=== PATIENT | male | born 1945 | race Caucasian/White ===

== ENCOUNTER 2017-05-28 13:46 | Inpatient (IN) | payer MEDICARE, MEDICAID ==
[2017-05-28] MEDS ORDERED: CEFTRIAXONE RTU 1 GM/D5W 50 ML IV ONE (14:21)
--- NOTE | 2017-05-28 15:07 | ER Document Report ---
ED General - General Chief Complaint: Abscess Stated Complaint: ALTERED MENTAL STATUS Time Seen by Provider: 05/28/17 14:20 Mode of Arrival: Medic Information source: Transfer Record, Emergency Med Personnel, Outside Facility Records Cannot obtain history due to: Dementia Notes: Patient is a 71-year-old male presenting from the [facility] secondary to some increased baseline mental status changes as well as a wound to his right lower buttocks region. History was provided by transfer records as well as EMS report. Supposedly there is been no fevers, vomiting, or diarrhea. Skylar, nurse at staff, states pt looked pale and clammy. States confused at baseline, but normally feeds himself. States slumped over and couldn't hold himself up. BP was "low in the 80's". Wound on buttocks noticed two days ago. No fevers or vomiting. Normally laughs and answers in two to three word sentences. TRAVEL OUTSIDE OF THE [place] IN LAST 30 DAYS: No - HPI Onset: This morning Onset/Duration: Gradual Quality of pain: No pain Severity: Moderate Associated symptoms: Other - See above Exacerbated by: Denies Relieved by: Denies Similar symptoms previously: No Recently seen / treated by doctor: Yes - Related Data Allergies/Adverse Reactions: No Known Allergies Allergy (Unverified 04/21/12 04:40) Past Medical History - Social History Smoking Status: Never Smoker Cigarette use (# per day): No Chew tobacco use (# tins/day): No Smoking Education Provided: No Frequency of alcohol use: None Drug Abuse: None Family History: Reviewed & Not Pertinent Patient has suicidal ideation: No Patient has homicidal ideation: No - Past Medical History Cardiac Medical History: Reports: Hx Hypercholesterolemia, Hx Hypertension Pulmonary Medical History: Denies: Hx Tuberculosis Neurological Medical History: Reports: Hx Cerebrovascular Accident Renal/ Medical History: Denies: Hx Peritoneal Dialysis GI Medical History: Reports: Hx Ulcer Psychiatric Medical History: Reports: Hx Dementia Surgical Hx: Negative Past Surgical History: Denies: Hx Pacemaker - Immunizations Hx Diphtheria, Pertussis, Tetanus Vaccination: Yes Review of Systems - Review of Systems -: Yes ROS unobtainable due to patient's medical condition Physical Exam - Vital signs Vitals: Temp Pulse Resp BP Pulse Ox 99.5 F 94 20 104/44 L 100 05/28/17 14:11 05/28/17 14:11 05/28/17 14:11 05/28/17 14:11 05/28/17 14:11 Notes: Reviewed vital signs and nursing note as charted by RN. CONSTITUTIONAL: Eyes open with the patient does not respond to questions or commands HEAD: Normocephalic; atraumatic EYES: PERRL ENT: Moist mucous membranes; pharynx without lesions noted NECK: Supple without meningismus; non-tender CARD: Regular rate and rhythm; no murmurs RESP: Normal chest excursion without splinting or tachypnea; breath sounds clear and equal bilaterally ABD/GI: Normal bowel sounds; non-distended; soft, non-tender GI/: Patient does have a 6 x 4 cm circular ulcerated lesion with some surrounding cellulitis to the right posterior buttocks. It does not extend into the scrotum or perineal or perirectal region BACK: The back appears normal and is non-tender to palpation EXT: Normal ROM in all joints; non-tender to palpation; no cyanosis, no effusions, no edema SKIN: See above NEURO: Moves all extremities equally; Motor and sensory function intact Course - Re-evaluation Re-evalutation: 05/28/17 15:07 Given the history and physical examination with the skin lesion as recorded with a change in mental status being cold and clammy with blood pressures as recorded, we will provide fluids, obtain blood cultures and urine cultures, obtain a CT scan of the head, EKG, and reassess. I would like to evaluate for possible infection or intracranial lesion. 05/28/17 15:08 EKG shows a heart of 85, normal sinus rhythm, no obvious ST elevation. Slightly depressed T waves in leads V3 and V4. A lot of artifact secondary to the contracted state. flattening T waves in leads I and III. Old EKG from December 31 shows no obvious acute change. 05/28/17 17:23 Labs thus far as recorded. CT scan shows no acute abnormalities. Patient has spiked a fever of 101. Patient is already received Rocephin. We are waiting on the urinalysis. We have replaced the patient's potassium. 05/28/17 17:42 Urine analysis as recorded. Urine culture has been sent. Rocephin has been given. Patient will be admitted to the hospitalist service. Fluid is currently infusing. - Vital Signs Vital signs: Temp Pulse Resp BP Pulse Ox 101 F H 94 13 94/49 L 100 05/28/17 17:17 05/28/17 14:11 05/28/17 17:01 05/28/17 17:01 05/28/17 17:01 - Laboratory Result Diagrams: 05/28/17 16:40 05/28/17 16:40 Laboratory results interpreted by me: 05/28/17 05/28/17 05/28/17 16:40 16:40 17:18 WBC 14.9 H RBC 2.90 L Hgb 9.0 L Hct 25.6 L Seg Neutrophils % 89.6 H Lymphocytes % 6.0 L Absolute Neutrophils 13.3 H Potassium 2.7 L* Chloride 92 L Carbon Dioxide 34 H BUN 37 H Glucose 124 H Urine Blood LARGE H Ur Leukocyte Esterase LARGE H Discharge - Discharge Clinical Impression: UTI (urinary tract infection) Qualifiers: Urinary tract infection type: site unspecified Hematuria presence: without hematuria Qualified Code(s): N39.0 - Urinary tract infection, site not specified Altered mental status Qualifiers: Altered mental status type: unspecified Qualified Code(s): R41.82 - Altered mental status, unspecified Condition: Fair Disposition: ADMITTED INPATIENT Admitting Provider: Hospitalist Unit Admitted: Telemetry
--- NOTE | 2017-05-28 16:47 | RADIOLOGY REPORT (SQ) ---
EXAM DESCRIPTION: CT HEAD WITHOUT COMPLETED DATE/TIME: 05/28/2017 4:25 pm REASON FOR STUDY: 5, AMS COMPARISON: 04/12/2016 TECHNIQUE: Axial images acquired through the brain without intravenous contrast. Images reviewed wi th bone, brain and subdural windows. Images stored on PACS. All CT scanners at this facility use dose modulation, iterative reconstruction, and/or weight based d osing when appropriate to reduce radiation dose to as low as reasonably achievable (ALARA). [facility]: Dose Right [facility]: CareDose [facility]: Dose Right [facility]: Teradose 4D [facility]: Smart StudyBlue RADIATION DOSE: Up-to-date CT equipment and radiation dose reduction techniques were employed. CTDIv ol: 64.6 mGy. DLP: 1034 mGy-cm.mGy. LIMITATIONS: None. FINDINGS: VENTRICLES: Prominent. CEREBRUM: No masses. No hemorrhage. No midline shift. Areas of low density in the white matter mos t likely due to chronic micro-vascular ischemic change. No evidence for acute infarction. CEREBELLUM: No masses. No hemorrhage. No alteration of density. No evidence for acute infarction. EXTRAAXIAL SPACES: Age-related involutional change. No fluid collections. No masses. ORBITS AND GLOBE: No intra- or extraconal masses. Normal contour of globe without masses. CALVARIUM: No fracture. PARANASAL SINUSES: No fluid or mucosal thickening. SOFT TISSUES: No mass or hematoma. OTHER: No other significant finding. IMPRESSION: STABLE CT APPEARANCE OF THE BRAIN DEMONSTRATING CHRONIC CHANGES OF ATROPHY AND MICROVASC ULAR ISCHEMIA. NO ACUTE PROCESS. EVIDENCE OF ACUTE STROKE: NO. TECHNICAL DOCUMENTATION: JOB ID: [id number] Quality ID # [id number]: Final reports with documentation of one or more dose reduction techniques (e.g., Au tomated exposure control, adjustment of the mA and/or kV according to patient size, use of iterative reconstruction technique) 2010 [employer]- All Rights Reserved
[2017-05-28 16:55] LABS: ABSOLUTE LYMPHOCYTES (AUTO) 0.9 10^3/uL (0.5-4.7); ABSOLUTE MONOCYTES (AUTO) 0.6 10^3/uL (0.1-1.4); ABSOLUTE NEUT (AUTO) 13.3 10^3/uL (1.7-8.2); BASOPHILS % (AUTO) 0.2 % (0-2); HEMATOCRIT 25.6 % (37.9-51.0); HGB HCT DIFFERENCE 1.4; MEAN CORPUSCULAR HEMOGLOBIN 31.2 pg (27.0-33.4); MEAN CORPUSCULAR HGB CONC 35.3 g/dL (32.0-36.0); MEAN CORPUSCULAR VOLUME 88 fl (80-97); MONOCYTES % (AUTO) 4.2 % (3-13); RED CELL DISTRIBUTION WIDTH 13.9 % (11.5-14.0); SEGMENTED NEUTROPHILS % (AUTO) 89.6 % (42-78); WHITE BLOOD COUNT 14.9 10^3/uL (4.0-10.5)
[2017-05-28 17:13] LABS: ANION GAP 12 (5-19); BLOOD UREA NITROGEN 37 mg/dL (7-20); CALCIUM 9.1 mg/dL (8.4-10.2); CARBON DIOXIDE 34 mmol/L (22-30); CHLORIDE 92 mmol/L (98-107); CREATININE RESULT 0.88 mg/dL (0.52-1.25); GLUCOSE 124 mg/dL (75-110); SODIUM 138.2 mmol/L (137-145)
[2017-05-28 17:21] LABS: POTASSIUM 2.7 mmol/L (3.6-5.0)
[2017-05-28] MEDS ORDERED: ACETAMINOPHEN 650 MG SUPP.RECT PR ONE (17:21)
[2017-05-28] MEDS ORDERED: POTASSI CL 20 MEQ/50 ML RIDER 20 MEQ/50 ML RTUPB IV ONE (17:22)
[2017-05-28] MEDS ORDERED: NORMAL SALINE 1000 ML 1,000 ML IV ONE ×2 (17:23→22:49)
--- NOTE | 2017-05-28 17:24 | EKG REPORT ---
SEVERITY:- ABNORMAL ECG - SINUS RHYTHM BORDERLINE T ABNORMALITIES, INFERIOR LEADS : Confirmed by: Rafy Flores MD 28-May-2017 17:23:19
[2017-05-28 17:38] LABS: APPEARANCE,URINE CLOUDY; BILIRUBIN,URINE NEGATIVE (NEGATIVE); GLUCOSE, URINE NEGATIVE (NEGATIVE); KETONES,URINE NEGATIVE (NEGATIVE); LEUKOCYTE ESTERASE,URINE LARGE (NEGATIVE); NITRITE,URINE NEGATIVE (NEGATIVE); PROTEIN,URINE NEGATIVE (NEGATIVE); URINE SPECIFIC GRAVITY 1.012; UROBILINOGEN,URINE NEGATIVE mg/dL (<2.0)
[2017-05-28] MEDS ORDERED: ACETAMINOPHEN 325 MG TABLET PO PRN (17:58)
[2017-05-28] MEDS ORDERED: IPRATROPIUM/ALBUTEROL 0.5-2.5 MG/3 ML AMPUL NEB PRN (17:58)
[2017-05-28] MEDS ORDERED: ONDANSETRON HCL INJ/PF 4 MG/2 ML SDV IV PRN (17:58)
[2017-05-28] MEDS ORDERED: DEXTROSE 5%-NORMAL SALINE 1,000 ML IV PRN (17:58)
[2017-05-28] MEDS ORDERED: PROMETHAZINE HCL 25 MG TABLET PO PRN (17:58)
[2017-05-28] MEDS ORDERED: DOCUSATE SODIUM 100 MG/10 ML UDC PO SCH (18:00)
--- NOTE | 2017-05-28 18:53 | HISTORY AND PHYSICAL E ---
History and Physical NAME: BENNETT PATTON : 1945 AGE: 71Y ADMITTED: 05/28/2017 ROOM: ED05 CHIEF COMPLAINT: Altered mental status. HISTORY OF THE PRESENT ILLNESS: The patient is a 72-year-old male who has a past medical history of dementia, hypertension, lacunar stroke. He was here in the hospital in 2011, at that time he was admitted with stroke and transferred to a retirement. The patient was brought to the emergency room because of more confusion, fever and lethargy, hypotension. He was found to be hypotensive and was found to have a fever of 101. His urinalysis showed possible urinary tract infection; some blood, white blood cell, and leukocyte esterase. White blood count around 15. REVIEW OF SYSTEMS: Is very difficult to obtain. The patient is lethargic, very confused. PAST MEDICAL HISTORY: 1. Lacunar stroke. 2. Hypertension. 3. Fall. 4. Dementia. PAST SURGICAL HISTORY: None. HOME MEDICATION: He was discharged on; 1. Lisinopril. 2. Aspirin. 3. Norvasc. 4. Lipitor. FAMILY HISTORY: Unremarkable. SOCIAL HISTORY: He lives at a retirement. PHYSICAL EXAMINATION: GENERAL: The patient is lying in bed, looks very sick, lethargic. VITAL SIGNS: Blood pressure 94/49, heart rate 64, temperature 101, saturation 100%. HEENT: Head is normocephalic, atraumatic. Pupils are round and reactive to light and accommodation bilaterally. Extraocular movements are intact. Ears: Tympanic membranes are intact bilaterally. No discharge from the ears. No discharge from the nose. Mucous membranes is moist. NECK: Supple. No increased JVD, no thyromegaly, and no lymphadenopathy. CARDIOVASCULAR: Normal S1, S2. Regular rate and rhythm. RESPIRATORY: Lungs are clear to auscultation bilaterally. No wheezing, no crackles. ABDOMEN: Obese, soft, and nontender. No organomegaly. Bowel sounds active. MUSCULOSKELETAL: No edema. NEUROLOGIC: Very lethargic. Responding by opening eye. Nonfocal. SKIN: No rash. LABORATORY DATA: Sodium 138, potassium 2.8, creatinine 0.8, BUN 37. White blood count 15, hemoglobin 9. Urinalysis showed UTI. ASSESSMENT: The patient is a 71-year-old male who had a past medical history of hypertension, stroke. He is a retirement resident. He has a dementia, mild dementia. He was brought because of altered mental status, lethargy. He was found to have urinary tract infection, fever, and leukocytosis. 1. Sepsis. Probably from urinary tract infection with hypotension and fever. 2. Encephalopathy from underlying dementia and sepsis on top of that. 3. Hypertension, now he is hypotensive. 4. Dementia. 5. History of stroke. 6. Leukocytosis. 7. Fever. PLAN: We will admit the patient to IMCU. As the patient received a full liter in the ER he is getting the second liter and then we will put him on maintenance D5 NS 125 mL per hour. Clear liquid diet. We will cover him with antibiotic for Rocephin 1 mg IV daily. Workup send urine culture. We will hold his blood pressure medications. Labs tomorrow morning. We will get also a chest x-ray. CODE STATUS: He is a full code. TIME SPENT: One hour. DICTATING PHYSICIAN: BHARAT ADAME M.D. [id number] PHY#: [id number] ID: [id number] JOB#: [id number] ACCT: [id number] cc:BHARAT ADAME M.D. > MTDD
[2017-05-28] MEDS ORDERED: INFLUENZA ADLT QUAD (36MOS+) 2017-18 VAC 0.5 ML SYR IM PRN (21:08)
[2017-05-28] MEDS: FAMOTIDINE 20 MG TABLET PO SCH (21:41)
[2017-05-28] MEDS: DEXTROSE 5%-NORMAL SALINE 1,000 ML IV PRN (21:41)
[2017-05-28] MEDS ORDERED: METOCLOPRAMIDE HCL INJ/PF 10 MG/2 ML SDV IV SCH (22:00)
[2017-05-28] MEDS ORDERED: TEMAZEPAM 7.5 MG CAPSULE PO SCH (22:00)
[2017-05-28] MEDS ORDERED: ZOLPIDEM TARTRATE 5 MG TABLET PO SCH (22:00)
[2017-05-28] MEDS ORDERED: DEXTROSE 5%-WATER 250 ML with NOREPINEPHRINE BITARTRATE 4 MG IV PRN ×2 (22:49)
[2017-05-28] MEDS ORDERED: VANCOMYCIN HCL 1,000 MG in DEXTROSE 5%-WATER 250 ML IV ONE (22:52)
[2017-05-28] MEDS ORDERED: NOREPINEPHRINE BITARTRATE INJ/PF 4 MG/4 ML SDV IV ONE (22:53)
[2017-05-28] MEDS ORDERED: HYDROCORTISONE SOD SUCCINATE INJ/PF 100 MG/2 ML SDV IV ONE (23:00)
[2017-05-28] MEDS ORDERED: VANCOMYCIN HCL 0 MG in DEXTROSE 5%-WATER 250 ML IV NR (23:00)
[2017-05-28 23:30] LABS: ANION GAP 11 (5-19); BLOOD UREA NITROGEN 37 mg/dL (7-20); CALCIUM 9.1 mg/dL (8.4-10.2); CARBON DIOXIDE 30 mmol/L (22-30); CHLORIDE 96 mmol/L (98-107); CREATINE KINASE 843 U/L (55-170); CREATININE RESULT 0.81 mg/dL (0.52-1.25); GLUCOSE 137 mg/dL (75-110); SODIUM 137.1 mmol/L (137-145)
[2017-05-28 23:30] LABS: ABSOLUTE MONOCYTES (AUTO) 0.7 10^3/uL (0.1-1.4); ABSOLUTE NEUT (AUTO) 11.1 10^3/uL (1.7-8.2); BASOPHILS % (AUTO) 0.2 % (0-2); HEMOGLOBIN 9.4 g/dL (13.5-17.0); HGB HCT DIFFERENCE 1.2; LYMPHOCYTES % (AUTO) 14.2 % (13-45); MEAN CORPUSCULAR HEMOGLOBIN 30.6 pg (27.0-33.4); MEAN CORPUSCULAR HGB CONC 34.6 g/dL (32.0-36.0); MEAN CORPUSCULAR VOLUME 89 fl (80-97); RED BLOOD COUNT 3.05 10^6/uL (4.35-5.55); RED CELL DISTRIBUTION WIDTH 13.9 % (11.5-14.0); SEGMENTED NEUTROPHILS % (AUTO) 80.6 % (42-78); WHITE BLOOD COUNT 13.8 10^3/uL (4.0-10.5)
[2017-05-28 23:39] LABS: POTASSIUM 2.6 mmol/L (3.6-5.0)
[2017-05-28 23:41] LABS: CREATINE KINASE MB 6.69 ng/mL (<4.55); TROPONIN I 0.069 ng/mL
[2017-05-29] MEDS ORDERED: POTASSI CL 20 MEQ/50 ML RIDER 20 MEQ/50 ML RTUPB IV ONE (00:03)
[2017-05-29] MEDS ORDERED: MAGNESIUM SULFATE/D5W 1 GM/100 ML RTUPB IV ONE ×2 (00:03→00:15)
[2017-05-29] MEDS: DEXTROSE 5%-NORMAL SALINE 1,000 ML IV PRN ×3 (00:21→22:49)
[2017-05-29] MEDS: POTASSIUM CHLORIDE 20 MEQ/50 ML RTU IV SCH ×3 (00:25→05:02)
[2017-05-29 01:56] LABS: ARTERIAL BLOOD BASE EXCESS 8.4 mmol/L; ARTERIAL BLOOD O2 SATURATION 99.4 % (94-98)
[2017-05-29] MEDS ORDERED: VANCOMYCIN HCL INJ 1000 MG VIAL ONE (02:54)
[2017-05-29 05:07] LABS: ABSOLUTE LYMPHOCYTES (AUTO) 0.9 10^3/uL (0.5-4.7); ABSOLUTE MONOCYTES (AUTO) 0.3 10^3/uL (0.1-1.4); ABSOLUTE NEUT (AUTO) 11.3 10^3/uL (1.7-8.2); BASOPHILS % (AUTO) 0.3 % (0-2); HEMATOCRIT 27.9 % (37.9-51.0); HEMOGLOBIN 9.8 g/dL (13.5-17.0); HGB HCT DIFFERENCE 1.5; LYMPHOCYTES % (AUTO) 7.2 % (13-45); MEAN CORPUSCULAR HGB CONC 35.2 g/dL (32.0-36.0); MEAN CORPUSCULAR VOLUME 88 fl (80-97); MONOCYTES % (AUTO) 2.5 % (3-13); RED BLOOD COUNT 3.16 10^6/uL (4.35-5.55); RED CELL DISTRIBUTION WIDTH 13.7 % (11.5-14.0); WHITE BLOOD COUNT 12.5 10^3/uL (4.0-10.5)
[2017-05-29 05:35] LABS: ANION GAP 10 (5-19); BLOOD UREA NITROGEN 30 mg/dL (7-20); CALCIUM 8.8 mg/dL (8.4-10.2); CARBON DIOXIDE 31 mmol/L (22-30); CHLORIDE 99 mmol/L (98-107); CREATINE KINASE 787 U/L (55-170); CREATININE RESULT 0.73 mg/dL (0.52-1.25); GLUCOSE 235 mg/dL (75-110); POTASSIUM 3.1 mmol/L (3.6-5.0); SODIUM 139.8 mmol/L (137-145)
[2017-05-29 05:46] LABS: CREATINE KINASE MB 7.44 ng/mL (<4.55); TROPONIN I 0.052 ng/mL
[2017-05-29] MEDS: HYDROCORTISONE SOD SUCCINATE INJ/PF 100 MG/2 ML SDV IV SCH ×3 (06:36→22:50)
--- NOTE | 2017-05-29 08:18 | PROGRESS NOTE E ---
Progress Note NAME: BENNETT PATTON : 1945 AGE: 71Y DATE: ROOM: 603 SUBJECTIVE: The patient is a 71-year-old male who has a past medical history of dementia. He was admitted yesterday with septic shock secondary to UTI. The patient was admitted to MICU. He was transferred from MICU to ICU because of palpitation. He required pressor. He is currently on pressor, ceftriaxone and vancomycin and he is doing much better. Awake, alert. OBJECTIVE: GENERAL: Patient lying in bed, comfortable. Not in distress. VITAL SIGNS: Temperature 96.6, heart rate is 73, blood pressure 131/69. Saturation 100%. HEENT: Normocephalic, atraumatic. Pupils are round, reactive, and equal to light and accommodation bilaterally. Extraocular movements intact. Ears: Tympanic membranes intact bilaterally. No discharge from the ears. No discharge from the nose. NECK: Supple. No increased JVD. No thyromegaly. No lymphadenopathy. CARDIOVASCULAR: Normal S1 and S2. Regular rate and rhythm. No murmur. No gallop. RESPIRATORY: Lungs clear. ABDOMEN: Soft. MUSCULOSKELETAL: No edema. NEUROLOGIC: Awake, alert. DIAGNOSTIC DATA: Labs: White blood count is 12.5, hemoglobin 9.8. Sodium 139, potassium 3.1. Culture is pending. ASSESSMENT: 1. SEPTIC SHOCK SECONDARY TO URINARY TRACT INFECTION. Antibiotics. Broad coverage with ceftriaxone and vancomycin and pressor Levophed. 2. URINARY TRACT INFECTION. 3. HYKALEMIA. 4. DEMENTIA. 5. HISTORY OF STROKE. PLAN: Continue antibiotics ceftriaxone and vancomycin. Follow culture. Titrate of Levophed. The patient's blood pressure is stable. Continue on IV fluids. Lab tomorrow morning. Will downgrade him to MICU. DICTATING PHYSICIAN: BHARAT ADAME M.D. [id number] LALITO#: [id number] ID: [id number] JOB#: [id number] ACCT: [id number] cc: >
[2017-05-29] MEDS: CEFTRIAXONE 1 GM/D5W RTU 1 GM/50 ML RTUPB IV SCH (10:29)
[2017-05-29] MEDS: DOCUSATE SODIUM 100 MG CAPSULE PO SCH ×2 (10:30→18:11)
[2017-05-29] MEDS: ENOXAPARIN SODIUM INJ 30 MG/0.3 ML DISP.SYRIN SUBCUT SCH (10:30)
[2017-05-29] MEDS: FAMOTIDINE 20 MG TABLET PO SCH ×2 (10:31→22:50)
[2017-05-29 11:03] LABS: ANION GAP 10 (5-19); BLOOD UREA NITROGEN 25 mg/dL (7-20); CALCIUM 9.1 mg/dL (8.4-10.2); CARBON DIOXIDE 32 mmol/L (22-30); CHLORIDE 100 mmol/L (98-107); CREATININE RESULT 0.71 mg/dL (0.52-1.25); GLUCOSE 218 mg/dL (75-110); POTASSIUM 3.2 mmol/L (3.6-5.0); SODIUM 141.5 mmol/L (137-145)
[2017-05-29 11:18] LABS: CREATINE KINASE MB 6.82 ng/mL (<4.55)
[2017-05-29 11:25] LABS: TROPONIN I 0.042 ng/mL
--- NOTE | 2017-05-29 13:00 | RADIOLOGY REPORT (SQ) ---
EXAM DESCRIPTION: CT ABD/PELVIS WITH IV ONLY COMPLETED DATE/TIME: 05/29/2017 12:02 pm REASON FOR STUDY: hydronephrosis/ pyelo? COMPARISON: CT abdomen pelvis 09/02/2013 TECHNIQUE: CT scan of the abdomen and pelvis performed using helical scanning technique with dynamic intravenous contrast injection. No oral contrast. Images reviewed with lung, soft tissue, and bone windows. Reconstructed coronal and sagittal MPR images reviewed. Delayed images for evaluation of the urinary system also acquired. All images stored on PACS. All CT scanners at this facility use dose modulation, iterative reconstruction, and/or weight based d osing when appropriate to reduce radiation dose to as low as reasonably achievable (ALARA). [facility]: Dose Right [facility]: CareDose [facility]: Dose Right [facility]: Teradose 4D [facility]: Cartilix CONTRAST TYPE AND DOSE: contrast/concentration: Isovue 370.00 mg/ml; Total Contrast Delivered: 64.0 ml; Total Saline Delivered: 59.0 ml RENAL FUNCTION: Creatinine 0.88 RADIATION DOSE: Up-to-date CT equipment and radiation dose reduction techniques were employed. CTDIv ol: 12.4 - 16.0 mGy. DLP: 1488 mGy-cm.. LIMITATIONS: No oral contrast FINDINGS: Patient has a very thick walled urinary bladder suggesting chronic bladder outlet obstru ction. There is a Hernandez catheter draining the bladder. The Hernandez balloon is inflated in the prostatic ureth ra, best shown on sagittal image 54. There is no hydronephrosis or hydroureter on today's study. LOWER CHEST: Heavy coronary artery calcifications. Minimal bibasilar atelectasis. LIVER: Normal size. No masses. No dilated ducts. SPLEEN: Normal size. No focal lesions. PANCREAS: No masses. No significant calcifications. No adjacent inflammation or peripancreatic fluid collections. Pancreatic duct not dilated. GALLBLADDER: No identified stones by CT criteria. No inflammatory changes to suggest cholecystitis. ADRENAL GLANDS: No significant masses or asymmetry. RIGHT KIDNEY AND URETER: No solid masses. No significant calcifications. No hydronephrosis or hyd roureter. LEFT KIDNEY AND URETER: No solid masses. No significant calcifications. No hydronephrosis or hydr oureter. AORTA AND VESSELS: No aneurysm. No dissection. Renal arteries, SMA, celiac without stenosis. RETROPERITONEUM: No retroperitoneal adenopathy, hemorrhage or masses. BOWEL AND PERITONEAL CAVITY: No masses or inflammatory changes. No free fluid or peritoneal masses. APPENDIX: Normal. PELVIS: No free fluid. No pelvic masses or adenopathy. Thick walled bladder. Hernandez catheter drains the bladder, Hernandez balloon in the prostatic urethra ABDOMINAL WALL: No masses. No hernias. BONES: No significant or acute findings. OTHER: No other significant finding. IMPRESSION: Thick walled bladder suggests longstanding bladder outlet obstruction. No hydronephrosi s or hydroureter on today's study. Hernandez catheter in the bladder, balloon is in the prostatic urethra TECHNICAL DOCUMENTATION: JOB ID: [id number] Quality ID # [id number]: Final reports with documentation of one or more dose reduction techniques (e.g., Au tomated exposure control, adjustment of the mA and/or kV according to patient size, use of iterative reconstruction technique) 2010 [employer]- All Rights Reserved
[2017-05-29] MEDS ORDERED: POTASSIUM CHLORIDE 10 MEQ TABLET.SA PO ONE (14:00)
[2017-05-29] MEDS: VANCOMYCIN HCL 500 MG in DEXTROSE 5%-WATER 100 ML IV SCH (22:50)
[2017-05-30] MEDS: HYDROCORTISONE SOD SUCCINATE INJ/PF 100 MG/2 ML SDV IV SCH ×3 (05:53→22:13)
[2017-05-30 06:18] LABS: ABSOLUTE LYMPHOCYTES (AUTO) 1.2 10^3/uL (0.5-4.7); ABSOLUTE MONOCYTES (AUTO) 0.4 10^3/uL (0.1-1.4); ABSOLUTE NEUT (AUTO) 10.3 10^3/uL (1.7-8.2); BASOPHILS % (AUTO) 0.1 % (0-2); HEMATOCRIT 25.2 % (37.9-51.0); HEMOGLOBIN 8.9 g/dL (13.5-17.0); HGB HCT DIFFERENCE 1.5; LYMPHOCYTES % (AUTO) 9.8 % (13-45); MEAN CORPUSCULAR HEMOGLOBIN 31.1 pg (27.0-33.4); MEAN CORPUSCULAR HGB CONC 35.2 g/dL (32.0-36.0); MEAN CORPUSCULAR VOLUME 89 fl (80-97); MONOCYTES % (AUTO) 3.6 % (3-13); RED BLOOD COUNT 2.85 10^6/uL (4.35-5.55); RED CELL DISTRIBUTION WIDTH 13.7 % (11.5-14.0); SEGMENTED NEUTROPHILS % (AUTO) 86.5 % (42-78); WHITE BLOOD COUNT 11.9 10^3/uL (4.0-10.5)
[2017-05-30 06:32] LABS: ALBUMIN 2.4 g/dL (3.5-5.0); ANION GAP 6 (5-19); BLOOD UREA NITROGEN 16 mg/dL (7-20); CALCIUM 8.7 mg/dL (8.4-10.2); CARBON DIOXIDE 32 mmol/L (22-30); CHLORIDE 105 mmol/L (98-107); CREATININE RESULT 0.71 mg/dL (0.52-1.25); GLUCOSE 182 mg/dL (75-110); PHOSPHORUS 2.6 mg/dL (2.5-4.5); SODIUM 143.3 mmol/L (137-145)
[2017-05-30 06:34] LABS: POTASSIUM 2.9 mmol/L (3.6-5.0)
[2017-05-30] MEDS: DEXTROSE 5%-NORMAL SALINE 1,000 ML IV PRN ×2 (07:34→13:59)
[2017-05-30] MEDS ORDERED: POTASSIUM CHLORIDE 10 MEQ TABLET.SA PO ONE (08:00)
[2017-05-30] MEDS ORDERED: ACETAMINOPHEN 325 MG TABLET PO PRN (08:00)
[2017-05-30] MEDS ORDERED: INFLUENZA ADLT QUAD (36MOS+) 2017-18 VAC 0.5 ML SYR IM PRN (08:00)
[2017-05-30] MEDS ORDERED: ONDANSETRON HCL INJ/PF 4 MG/2 ML SDV IV PRN (08:00)
[2017-05-30] MEDS: POTASSI CL 20 MEQ/50 ML RIDER 20 MEQ/50 ML RTUPB IV SCH ×2 (08:34→09:57)
[2017-05-30] MEDS: DOCUSATE SODIUM 100 MG CAPSULE PO SCH ×2 (08:37→17:34)
[2017-05-30] MEDS: FAMOTIDINE 20 MG TABLET PO SCH ×2 (09:12→22:13)
[2017-05-30] MEDS: CEFTRIAXONE 1 GM/D5W RTU 1 GM/50 ML RTUPB IV SCH (09:13)
[2017-05-30] MEDS: ENOXAPARIN SODIUM INJ 30 MG/0.3 ML DISP.SYRIN SUBCUT SCH (09:14)
[2017-05-30] MEDS ORDERED: POTASSIUM CHLORIDE 20 MEQ/15 ML UDCUP PO ONE (09:30)
[2017-05-30] MEDS: VANCOMYCIN HCL 500 MG in DEXTROSE 5%-WATER 100 ML IV SCH ×2 (11:40→22:13)
--- NOTE | 2017-05-30 13:20 | PDOC PROGRESS REPORT ---
Subjective Progress Note for:: 05/30/17 Subjective:: Patient is confused but denies any complaints. Was admitted with septic shock secondary to urinary tract infection. His blood pressure is improving. Physical Exam Vital Signs: Temp Pulse Resp BP Pulse Ox 97.4 F 78 17 107/64 99 05/28/17 23:26 05/30/17 10:00 05/30/17 12:12 05/30/17 12:12 05/30/17 12:12 Intake & Output 05/29/17 05/30/17 05/31/17 06:59 06:59 06:59 Intake Total 2035 3393 300 Output Total 790 1600 100 Balance 1245 1793 200 Weight 60.3 kg 62.6 kg General appearance: PRESENT: no acute distress Eye exam: PRESENT: conjunctiva pink. ABSENT: scleral icterus Mouth exam: PRESENT: moist, tongue midline Neck exam: ABSENT: JVD Respiratory exam: PRESENT: clear to auscultation maile. ABSENT: rales, rhonchi, wheezes Cardiovascular exam: PRESENT: RRR. ABSENT: diastolic murmur, rubs, systolic murmur GI/Abdominal exam: PRESENT: normal bowel sounds, soft. ABSENT: distended, guarding, mass, organolmegaly, rebound, tenderness Extremities exam: ABSENT: calf tenderness, clubbing, pedal edema Neurological exam: PRESENT: awake, oriented to person, oriented to place. ABSENT: oriented to time, oriented to situation Psychiatric exam: PRESENT: flat affect Skin exam: PRESENT: dry, intact, warm. ABSENT: cyanosis, rash Results Laboratory Results: 05/30/17 05:59 05/30/17 05:59 05/30/17 05/30/17 05/30/17 05:59 05:59 05:59 WBC 11.9 H RBC 2.85 L Hgb 8.9 L Hct 25.2 L MCV 89 MCH 31.1 MCHC 35.2 RDW 13.7 Plt Count 213 Seg Neutrophils % 86.5 H Lymphocytes % 9.8 L Monocytes % 3.6 Eosinophils % 0.0 Basophils % 0.1 Absolute Neutrophils 10.3 H Absolute Lymphocytes 1.2 Absolute Monocytes 0.4 Absolute Eosinophils 0.0 Absolute Basophils 0.0 Sodium 143.3 Potassium 2.9 L* Chloride 105 Carbon Dioxide 32 H Anion Gap 6 BUN 16 Creatinine 0.71 Est GFR ( Amer) > 60 Est GFR (Non-Af Amer) > 60 Glucose 182 H Calcium 8.7 Phosphorus 2.6 Magnesium 2.1 Albumin 2.4 L 05/28/17 05/28/17 05/29/17 22:40 22:40 04:59 Creatine Kinase 843 H 787 H CK-MB (CK-2) 6.69 H Troponin I 0.069 05/29/17 05/29/17 05/29/17 04:59 10:36 10:36 Creatine Kinase 747 H CK-MB (CK-2) 7.44 H 6.82 H Troponin I 0.052 0.042 Impressions: Head CT 05/28/17 14:21 IMPRESSION: STABLE CT APPEARANCE OF THE BRAIN DEMONSTRATING CHRONIC CHANGES OF ATROPHY AND MICROVASCULAR ISCHEMIA. NO ACUTE PROCESS. EVIDENCE OF ACUTE STROKE: NO. Abdomen/Pelvis CT 05/29/17 00:00 IMPRESSION: Thick walled bladder suggests longstanding bladder outlet obstruction. No hydronephrosis or hydroureter on today's study. Hernandez catheter in the bladder, balloon is in the prostatic urethra Assessment & Plan - Diagnosis (1) Septic shock Is this a current diagnosis for this admission?: Yes Plan: Patient's blood pressure is improved. Will continue with pressors as needed. Growing gram-positive cocci (2) UTI (urinary tract infection) Qualifiers: Urinary tract infection type: site unspecified Hematuria presence: without hematuria Qualified Code(s): N39.0 - Urinary tract infection, site not specified Is this a current diagnosis for this admission?: Yes Plan: Growing gram-positive cocci from her culture (3) Dementia Is this a current diagnosis for this admission?: Yes (4) Altered mental status Qualifiers: Altered mental status type: unspecified Qualified Code(s): R41.82 - Altered mental status, unspecified Is this a current diagnosis for this admission?: Yes Plan: Secondary to dementia and urinary tract infection. (5) Hypokalemia Is this a current diagnosis for this admission?: Yes Plan: We will continue to replace and monitor. - Time Time Spent with patient: 25-34 minutes - Inpatient Certification Medical Necessity: Need Close Monitoring Due to Risk of Patient Decompensation, Need for IV Antibiotics
[2017-05-30 14:36] LABS: ANION GAP 8 (5-19); BLOOD UREA NITROGEN 16 mg/dL (7-20); CALCIUM 8.6 mg/dL (8.4-10.2); CARBON DIOXIDE 28 mmol/L (22-30); CHLORIDE 107 mmol/L (98-107); CREATININE RESULT 0.67 mg/dL (0.52-1.25); GLUCOSE 207 mg/dL (75-110); POTASSIUM 3.3 mmol/L (3.6-5.0); SODIUM 143.1 mmol/L (137-145)
[2017-05-31] MEDS: DEXTROSE 5%-NORMAL SALINE 1,000 ML IV PRN ×3 (03:00→18:09)
[2017-05-31 04:24] LABS: ABSOLUTE MONOCYTES (AUTO) 0.3 10^3/uL (0.1-1.4); ABSOLUTE NEUT (AUTO) 7.4 10^3/uL (1.7-8.2); BASOPHILS % (AUTO) 0.5 % (0-2); HEMATOCRIT 24.9 % (37.9-51.0); HEMOGLOBIN 8.7 g/dL (13.5-17.0); HGB HCT DIFFERENCE 1.2; LYMPHOCYTES % (AUTO) 11.1 % (13-45); MEAN CORPUSCULAR HEMOGLOBIN 31.3 pg (27.0-33.4); MEAN CORPUSCULAR VOLUME 90 fl (80-97); RED BLOOD COUNT 2.78 10^6/uL (4.35-5.55); RED CELL DISTRIBUTION WIDTH 13.7 % (11.5-14.0); SEGMENTED NEUTROPHILS % (AUTO) 84.4 % (42-78); WHITE BLOOD COUNT 8.8 10^3/uL (4.0-10.5)
[2017-05-31 04:52] LABS: ANION GAP 8 (5-19); BLOOD UREA NITROGEN 18 mg/dL (7-20); CALCIUM 8.8 mg/dL (8.4-10.2); CARBON DIOXIDE 29 mmol/L (22-30); CHLORIDE 108 mmol/L (98-107); CREATININE RESULT 0.76 mg/dL (0.52-1.25); GLUCOSE 154 mg/dL (75-110); MAGNESIUM 1.9 mg/dL (1.6-2.3); POTASSIUM 3.4 mmol/L (3.6-5.0); SODIUM 145.2 mmol/L (137-145)
[2017-05-31] MEDS: HYDROCORTISONE SOD SUCCINATE INJ/PF 100 MG/2 ML SDV IV SCH ×3 (05:46→22:52)
[2017-05-31] MEDS: FAMOTIDINE 20 MG TABLET PO SCH ×2 (10:49→22:52)
[2017-05-31] MEDS: CEFTRIAXONE 1 GM/D5W RTU 1 GM/50 ML RTUPB IV SCH (10:49)
[2017-05-31] MEDS: DOCUSATE SODIUM 100 MG CAPSULE PO SCH ×2 (10:49→17:03)
[2017-05-31] MEDS: ENOXAPARIN SODIUM INJ 30 MG/0.3 ML DISP.SYRIN SUBCUT SCH (10:51)
[2017-05-31 11:43] LABS: CREATININE RESULT 0.86 mg/dL (0.52-1.25)
[2017-05-31] MEDS: VANCOMYCIN HCL 500 MG in DEXTROSE 5%-WATER 100 ML IV SCH (12:20)
--- NOTE | 2017-05-31 14:57 | PDOC PROGRESS REPORT ---
Subjective Progress Note for:: 05/31/17 Subjective:: Patient does not verbalize. Patient reportedly has repeated movements on his lower extremities. No reported diarrhea, temperature spikes, respiratory distress, chills or fever. Vision has a wound on the right hip without necrosis or purulent drainage. Physical Exam Vital Signs: Temp Pulse Resp BP Pulse Ox 98.7 F 70 22 H 119/64 99 05/31/17 12:44 05/31/17 12:44 05/31/17 12:44 05/31/17 12:44 05/31/17 12:44 Intake & Output 05/30/17 05/31/17 06/01/17 06:59 06:59 06:59 Intake Total 3393 2180 360 Output Total 1600 725 Balance 1793 1455 360 Weight 62.6 kg 66 kg General appearance: PRESENT: no acute distress, other - Advanced dementia Head exam: PRESENT: normocephalic Eye exam: PRESENT: EOMI Mouth exam: PRESENT: moist, neck supple Neck exam: ABSENT: JVD Respiratory exam: PRESENT: rhonchi - Bilateral scattered Cardiovascular exam: PRESENT: RRR. ABSENT: gallop GI/Abdominal exam: PRESENT: soft. ABSENT: distended, tenderness Extremities exam: PRESENT: other - Trace pretibial edema Neurological exam: PRESENT: awake Skin exam: PRESENT: dry, warm, other - Stage II decubitus ulcer right buttocks.. ABSENT: cyanosis Results Laboratory Results: 05/31/17 03:47 05/31/17 11:00 05/31/17 05/31/17 05/31/17 03:47 03:47 11:00 WBC 8.8 RBC 2.78 L Hgb 8.7 L Hct 24.9 L MCV 90 MCH 31.3 MCHC 35.0 RDW 13.7 Plt Count 220 Seg Neutrophils % 84.4 H Lymphocytes % 11.1 L Monocytes % 4.0 Eosinophils % 0.0 Basophils % 0.5 Absolute Neutrophils 7.4 Absolute Lymphocytes 1.0 Absolute Monocytes 0.3 Absolute Eosinophils 0.0 Absolute Basophils 0.0 Sodium 145.2 H Potassium 3.4 L Chloride 108 H Carbon Dioxide 29 Anion Gap 8 BUN 18 Creatinine 0.76 0.86 Est GFR ( Amer) > 60 > 60 Est GFR (Non-Af Amer) > 60 > 60 Glucose 154 H Calcium 8.8 Magnesium 1.9 05/28/17 05/28/17 05/29/17 22:40 22:40 04:59 Creatine Kinase 843 H 787 H CK-MB (CK-2) 6.69 H Troponin I 0.069 05/29/17 05/29/17 05/29/17 04:59 10:36 10:36 Creatine Kinase 747 H CK-MB (CK-2) 7.44 H 6.82 H Troponin I 0.052 0.042 Impressions: Head CT 05/28/17 14:21 IMPRESSION: STABLE CT APPEARANCE OF THE BRAIN DEMONSTRATING CHRONIC CHANGES OF ATROPHY AND MICROVASCULAR ISCHEMIA. NO ACUTE PROCESS. EVIDENCE OF ACUTE STROKE: NO. Abdomen/Pelvis CT 05/29/17 00:00 IMPRESSION: Thick walled bladder suggests longstanding bladder outlet obstruction. No hydronephrosis or hydroureter on today's study. Hernandez catheter in the bladder, balloon is in the prostatic urethra Assessment & Plan - Diagnosis (1) Altered mental status Qualifiers: Altered mental status type: unspecified Qualified Code(s): R41.82 - Altered mental status, unspecified Is this a current diagnosis for this admission?: Yes (2) Septic shock Is this a current diagnosis for this admission?: Yes (3) UTI (urinary tract infection) Qualifiers: Urinary tract infection type: site unspecified Hematuria presence: without hematuria Qualified Code(s): N39.0 - Urinary tract infection, site not specified Is this a current diagnosis for this admission?: Yes (4) Anemia Qualifiers: Anemia type: unspecified type Qualified Code(s): D64.9 - Anemia, unspecified Is this a current diagnosis for this admission?: Yes (5) Hypokalemia Is this a current diagnosis for this admission?: Yes (6) Essential hypertension Is this a current diagnosis for this admission?: Yes (7) History of stroke Is this a current diagnosis for this admission?: Yes (8) Dementia Qualifiers: Dementia type: unspecified type Dementia behavioral disturbance: without behavioral disturbance Qualified Code(s): F03.90 - Unspecified dementia without behavioral disturbance Is this a current diagnosis for this admission?: Yes - Time Time Spent with patient: 25-34 minutes - Plan Summary Plan Summary: Replace potassium. Recheck electrolytes in the morning. Discontinue vancomycin as culture of the blood looks like contaminant. Otherwise continue other antibiotics for urinary tract infection and follow cultures. Continue supportive care and wound care. Continue IV fluids. Continue to hold antihypertensives.
[2017-05-31] MEDS: POTASSI CL 20 MEQ/50 ML RIDER 20 MEQ/50 ML RTUPB IV SCH ×2 (17:03→21:38)
[2017-05-31] MEDS: RISPERIDONE 1 MG TABLET PO SCH (17:03)
[2017-05-31] MEDS ORDERED: POTASSIUM CHLORIDE 20 MEQ/50 ML RTU IV ONE (21:00)
[2017-05-31] MEDS: ESCITALOPRAM OXALATE 10 MG TABLET PO SCH (22:52)
[2017-06-01] MEDS: DEXTROSE 5%-NORMAL SALINE 1,000 ML IV PRN ×2 (01:42→08:17)
[2017-06-01] MEDS: HYDROCORTISONE SOD SUCCINATE INJ/PF 100 MG/2 ML SDV IV SCH ×3 (05:30→21:28)
[2017-06-01 05:36] LABS: HEMATOCRIT 27.3 % (37.9-51.0); HEMOGLOBIN 9.5 g/dL (13.5-17.0); HGB HCT DIFFERENCE 1.2; MEAN CORPUSCULAR HEMOGLOBIN 31.1 pg (27.0-33.4); MEAN CORPUSCULAR HGB CONC 34.6 g/dL (32.0-36.0); MEAN CORPUSCULAR VOLUME 90 fl (80-97); RED BLOOD COUNT 3.04 10^6/uL (4.35-5.55); RED CELL DISTRIBUTION WIDTH 13.7 % (11.5-14.0); WHITE BLOOD COUNT 8.8 10^3/uL (4.0-10.5)
[2017-06-01 05:55] LABS: ANION GAP 10 (5-19); BLOOD UREA NITROGEN 18 mg/dL (7-20); CALCIUM 8.6 mg/dL (8.4-10.2); CARBON DIOXIDE 27 mmol/L (22-30); CHLORIDE 109 mmol/L (98-107); CREATININE RESULT 0.79 mg/dL (0.52-1.25); GLUCOSE 148 mg/dL (75-110); POTASSIUM 3.2 mmol/L (3.6-5.0); SODIUM 145.7 mmol/L (137-145)
[2017-06-01] MEDS: CEFTRIAXONE 1 GM/D5W RTU 1 GM/50 ML RTUPB IV SCH (09:53)
[2017-06-01] MEDS: DOCUSATE SODIUM 100 MG CAPSULE PO SCH ×2 (09:53→17:27)
[2017-06-01] MEDS: FAMOTIDINE 20 MG TABLET PO SCH ×2 (09:53→21:28)
[2017-06-01] MEDS: RISPERIDONE 1 MG TABLET PO SCH ×2 (09:53→17:27)
[2017-06-01] MEDS: ENOXAPARIN SODIUM INJ 30 MG/0.3 ML DISP.SYRIN SUBCUT SCH (09:54)
[2017-06-01] MEDS ORDERED: DEXTROSE 5%-NORMAL SALINE 1,000 ML IV PRN (12:01)
--- NOTE | 2017-06-01 12:06 | PDOC PROGRESS REPORT ---
Subjective Progress Note for:: 06/01/17 Subjective:: Patient without any discomfort reported. No reported nausea vomiting or diarrhea. No reported respiratory distress nor temperature spikes. Patient complains of aches and pain but could not elaborate however. Physical Exam Vital Signs: Temp Pulse Resp BP Pulse Ox 98.0 F 56 L 20 167/67 H 100 06/01/17 07:01 06/01/17 08:00 06/01/17 08:00 06/01/17 08:00 06/01/17 08:00 Intake & Output 05/31/17 06/01/17 06/02/17 06:59 06:59 06:59 Intake Total 2180 3730 Output Total 725 875 Balance 1455 2855 Weight 66 kg 72.1 kg General appearance: PRESENT: no acute distress, cooperative Head exam: PRESENT: normocephalic Eye exam: PRESENT: EOMI Mouth exam: PRESENT: moist, neck supple Neck exam: ABSENT: JVD Respiratory exam: PRESENT: unlabored. ABSENT: crackles, rhonchi, wheezes Cardiovascular exam: PRESENT: irregular rhythm, RRR. ABSENT: gallop GI/Abdominal exam: PRESENT: soft. ABSENT: distended Extremities exam: ABSENT: pedal edema Neurological exam: PRESENT: alert, awake Skin exam: PRESENT: dry, warm. ABSENT: cyanosis Results Laboratory Results: 06/01/17 05:10 06/01/17 05:10 06/01/17 06/01/17 05:10 05:10 WBC 8.8 RBC 3.04 L Hgb 9.5 L Hct 27.3 L MCV 90 MCH 31.1 MCHC 34.6 RDW 13.7 Plt Count 247 Sodium 145.7 H Potassium 3.2 L Chloride 109 H Carbon Dioxide 27 Anion Gap 10 BUN 18 Creatinine 0.79 Est GFR ( Amer) > 60 Est GFR (Non-Af Amer) > 60 Glucose 148 H Calcium 8.6 05/28/17 05/28/17 05/29/17 22:40 22:40 04:59 Creatine Kinase 843 H 787 H CK-MB (CK-2) 6.69 H Troponin I 0.069 05/29/17 05/29/17 05/29/17 04:59 10:36 10:36 Creatine Kinase 747 H CK-MB (CK-2) 7.44 H 6.82 H Troponin I 0.052 0.042 Impressions: Head CT 05/28/17 14:21 IMPRESSION: STABLE CT APPEARANCE OF THE BRAIN DEMONSTRATING CHRONIC CHANGES OF ATROPHY AND MICROVASCULAR ISCHEMIA. NO ACUTE PROCESS. EVIDENCE OF ACUTE STROKE: NO. Abdomen/Pelvis CT 05/29/17 00:00 IMPRESSION: Thick walled bladder suggests longstanding bladder outlet obstruction. No hydronephrosis or hydroureter on today's study. Hernandez catheter in the bladder, balloon is in the prostatic urethra Assessment & Plan - Diagnosis (1) Altered mental status Qualifiers: Altered mental status type: unspecified Qualified Code(s): R41.82 - Altered mental status, unspecified Is this a current diagnosis for this admission?: Yes (2) Septic shock Is this a current diagnosis for this admission?: Yes (3) UTI (urinary tract infection) Qualifiers: Urinary tract infection type: site unspecified Hematuria presence: without hematuria Qualified Code(s): N39.0 - Urinary tract infection, site not specified Is this a current diagnosis for this admission?: Yes (4) Anemia Qualifiers: Anemia type: unspecified type Qualified Code(s): D64.9 - Anemia, unspecified Is this a current diagnosis for this admission?: Yes (5) Hypokalemia Is this a current diagnosis for this admission?: Yes (6) Essential hypertension Is this a current diagnosis for this admission?: Yes (7) History of stroke Is this a current diagnosis for this admission?: Yes (8) Dementia Qualifiers: Dementia type: unspecified type Dementia behavioral disturbance: without behavioral disturbance Qualified Code(s): F03.90 - Unspecified dementia without behavioral disturbance Is this a current diagnosis for this admission?: Yes (9) Decubitus ulcer of buttock, stage 2 Qualifiers: Laterality: right Qualified Code(s): L89.312 - Pressure ulcer of right buttock, stage 2 Is this a current diagnosis for this admission?: Yes - Time Time Spent with patient: 25-34 minutes - Plan Summary Plan Summary: Continue current antibiotics. Decrease IV fluids. Blood pressure starting to increase. We will resume ANTONIO inhibitor and diuretic but discontinue metolazone. Continue current wound care. Replace potassium and monitor electrolytes. Try muscle relaxants.
[2017-06-01] MEDS ORDERED: LISINOPRIL 5 MG TABLET PO ONE (12:30)
[2017-06-01] MEDS: CYCLOBENZAPRINE HCL 10 MG TABLET PO SCH ×2 (13:08→21:28)
[2017-06-01] MEDS: POTASSI CL 20 MEQ/50 ML RIDER 20 MEQ/50 ML RTUPB IV SCH ×3 (13:09→17:27)
[2017-06-01] MEDS: ESCITALOPRAM OXALATE 10 MG TABLET PO SCH (21:28)
[2017-06-02] MEDS: CYCLOBENZAPRINE HCL 10 MG TABLET PO SCH ×3 (05:24→22:20)
[2017-06-02] MEDS: HYDROCORTISONE SOD SUCCINATE INJ/PF 100 MG/2 ML SDV IV SCH ×3 (05:25→22:21)
[2017-06-02 06:14] LABS: ANION GAP 13 (5-19); BLOOD UREA NITROGEN 18 mg/dL (7-20); CALCIUM 8.6 mg/dL (8.4-10.2); CARBON DIOXIDE 24 mmol/L (22-30); CHLORIDE 108 mmol/L (98-107); CREATININE RESULT 0.75 mg/dL (0.52-1.25); GLUCOSE 138 mg/dL (75-110); POTASSIUM 3.6 mmol/L (3.6-5.0); SODIUM 144.9 mmol/L (137-145)
[2017-06-02] MEDS: CEFTRIAXONE 1 GM/D5W RTU 1 GM/50 ML RTUPB IV SCH (09:14)
[2017-06-02] MEDS: DOCUSATE SODIUM 100 MG CAPSULE PO SCH ×2 (09:17→17:31)
[2017-06-02] MEDS: RISPERIDONE 1 MG TABLET PO SCH ×2 (09:17→17:31)
[2017-06-02] MEDS: FAMOTIDINE 20 MG TABLET PO SCH ×2 (09:17→22:21)
[2017-06-02] MEDS: ENOXAPARIN SODIUM INJ 30 MG/0.3 ML DISP.SYRIN SUBCUT SCH (09:18)
[2017-06-02] MEDS ORDERED: LISINOPRIL 5 MG TABLET PO SCH (10:00)
[2017-06-02] MEDS ORDERED: FUROSEMIDE 20 MG TABLET PO SCH (10:00)
--- NOTE | 2017-06-02 11:09 | PDOC PROGRESS REPORT ---
Subjective Progress Note for:: 06/02/17 Subjective:: Patient is more calm today than yesterday. No reported temperature spikes, nausea or vomiting, nor diarrhea. Patient voiced no complaints at this time. Denies any pain or discomfort. Physical Exam Vital Signs: Temp Pulse Resp BP Pulse Ox 97.8 F 60 18 171/75 H 100 06/02/17 07:42 06/02/17 07:42 06/02/17 07:42 06/02/17 07:42 06/02/17 07:42 Intake & Output 06/01/17 06/02/17 06/03/17 06:59 06:59 06:59 Intake Total 3730 3376 Output Total 875 650 Balance 2855 2726 Weight 72.1 kg 74 kg General appearance: PRESENT: no acute distress, cooperative Head exam: PRESENT: normocephalic Eye exam: PRESENT: EOMI Mouth exam: PRESENT: moist, neck supple Neck exam: ABSENT: JVD Respiratory exam: PRESENT: clear to auscultation maile - Anteriorly bilateral Cardiovascular exam: PRESENT: RRR. ABSENT: gallop GI/Abdominal exam: PRESENT: soft. ABSENT: distended, tenderness Extremities exam: PRESENT: other - Trace lower extremity edema Neurological exam: PRESENT: alert, awake Skin exam: PRESENT: dry, warm. ABSENT: cyanosis Results Laboratory Results: 06/01/17 05:10 06/02/17 04:20 06/02/17 04:20 Sodium 144.9 Potassium 3.6 Chloride 108 H Carbon Dioxide 24 Anion Gap 13 BUN 18 Creatinine 0.75 Est GFR ( Amer) > 60 Est GFR (Non-Af Amer) > 60 Glucose 138 H Calcium 8.6 05/28/17 05/28/17 05/29/17 22:40 22:40 04:59 Creatine Kinase 843 H 787 H CK-MB (CK-2) 6.69 H Troponin I 0.069 05/29/17 05/29/17 05/29/17 04:59 10:36 10:36 Creatine Kinase 747 H CK-MB (CK-2) 7.44 H 6.82 H Troponin I 0.052 0.042 Impressions: Head CT 05/28/17 14:21 IMPRESSION: STABLE CT APPEARANCE OF THE BRAIN DEMONSTRATING CHRONIC CHANGES OF ATROPHY AND MICROVASCULAR ISCHEMIA. NO ACUTE PROCESS. EVIDENCE OF ACUTE STROKE: NO. Abdomen/Pelvis CT 05/29/17 00:00 IMPRESSION: Thick walled bladder suggests longstanding bladder outlet obstruction. No hydronephrosis or hydroureter on today's study. Hernandez catheter in the bladder, balloon is in the prostatic urethra Assessment & Plan - Diagnosis (1) Altered mental status Qualifiers: Altered mental status type: unspecified Qualified Code(s): R41.82 - Altered mental status, unspecified Is this a current diagnosis for this admission?: Yes (2) Septic shock Is this a current diagnosis for this admission?: Yes (3) UTI (urinary tract infection) Qualifiers: Urinary tract infection type: site unspecified Hematuria presence: without hematuria Qualified Code(s): N39.0 - Urinary tract infection, site not specified Is this a current diagnosis for this admission?: Yes (4) Anemia Qualifiers: Anemia type: unspecified type Qualified Code(s): D64.9 - Anemia, unspecified Is this a current diagnosis for this admission?: Yes (5) Hypokalemia Is this a current diagnosis for this admission?: Yes (6) Essential hypertension Is this a current diagnosis for this admission?: Yes (7) History of stroke Is this a current diagnosis for this admission?: Yes (8) Dementia Qualifiers: Dementia type: unspecified type Dementia behavioral disturbance: without behavioral disturbance Qualified Code(s): F03.90 - Unspecified dementia without behavioral disturbance Is this a current diagnosis for this admission?: Yes (9) Decubitus ulcer of buttock, stage 2 Qualifiers: Laterality: right Qualified Code(s): L89.312 - Pressure ulcer of right buttock, stage 2 Is this a current diagnosis for this admission?: Yes - Time Time Spent with patient: Less than 15 minutes - Plan Summary Plan Summary: We will continue current antibiotics. Consult surgery for management of decubitus ulcer. Continue supportive care. Resume antihypertensive medications. Increase the dose due to uncontrolled blood pressure.
[2017-06-02] MEDS ORDERED: DEXTROSE 40% GEL 15 GM TUBE PO PRN ×2 (19:23)
[2017-06-02] MEDS ORDERED: DEXTROSE 50%-WATER 25 GM/50 ML DISP.SYRIN IV PRN ×2 (19:23)
[2017-06-02] MEDS ORDERED: GLUCAGON,HUMAN RECOMB 1 MG INJ SUBCUT PRN (19:23)
--- NOTE | 2017-06-02 21:34 | PDOC CONSULTATION ---
History of Present Illness Admission Date/PCP: 05/28/17 18:17 Patient complains of: Unknown History of Present Illness: BENNETT PATTON is a 71 year old male status post cerebrovascular accident and dementia. Bedbound. Currently in the hospital for urosepsis. Noted with decubitus ulcer. Past Medical History Cardiac Medical History: Reports: Hyperlipidema, Hypertension Pulmonary Medical History: Denies: Tuberculosis Psychiatric Medical History: Reports: Dementia Hematology: Reports: Anemia Past Surgical History Past Surgical History: Denies: Pacemaker Social History Smoking Status: Unknown if Ever Smoked Hx Recreational Drug Use: No Hx Prescription Drug Abuse: No - Advance Directive Resuscitation Status: Full Code Family History Family History: Reviewed & Not Pertinent Parental Family History Reviewed: No Children Family History Reviewed: No Sibling(s) Family History Reviewed.: No Medication/Allergy Home Medications: Acetaminophen [Tylenol 325 mg Tablet] 650 mg PO Q4HP PRN 05/21/14 Aspirin [Mariela Chewable] 81 mg PO DAILY 05/21/14 Atorvastatin Calcium [Lipitor 20 mg Tablet] 20 mg PO QHS 05/21/14 Docusate Sodium 100 mg PO DAILY 05/21/14 Escitalopram Oxalate [Lexapro] 20 mg PO QHS 05/21/14 Furosemide [Lasix 20 mg Tablet] 40 mg PO DAILY 05/21/14 Lisinopril [Prinivil 5 mg Tablet] 5 mg PO DAILY 05/21/14 Metolazone [Zaroxolyn 5 Mg Tablet] 5 mg PO DAILY 05/21/14 Woodland-3 Fatty Acids/Fish Oil [Fish Oil 1,000 Mg Capsule] 1,000 mg PO TID Dextran 70/Hypromellose [Artificial Tears] 1 each OP Q4HP PRN 05/29/17 Immodium 4 mg PO DAILYP PRN 05/29/17 Lorazepam [Ativan 0.5 mg Tablet] 0.5 mg PO Q12HP PRN 05/29/17 Risperidone 1 mg PO BID 05/29/17 Allergies/Adverse Reactions: No Known Allergies Allergy (Unverified 04/21/12 04:40) Physical Exam Vital Signs: Temp Pulse Resp BP Pulse Ox 98.5 F 66 16 160/79 H 100 06/02/17 20:18 06/02/17 20:18 06/02/17 20:18 06/02/17 20:18 06/02/17 20:18 Intake & Output 06/01/17 06/02/17 06/03/17 06:59 06:59 06:59 Intake Total 3730 3376 1338 Output Total 878 333 675 Balance 2855 3978 663 Weight 72.1 kg 74 kg General appearance: PRESENT: no acute distress, disheveled Respiratory exam: PRESENT: clear to auscultation maile Cardiovascular exam: PRESENT: RRR GI/Abdominal exam: PRESENT: other - Soft, nondistended nontender to palpation. Neurological exam: PRESENT: aphasic Skin exam: PRESENT: other - Right buttocks with partial thickness skin necrosis with eschar with surrounding erythema. Region of eschar about size of a silver dollar. No drainage. Results Laboratory Results: 06/01/17 05:10 06/02/17 04:20 06/02/17 04:20 Sodium 144.9 Potassium 3.6 Chloride 108 H Carbon Dioxide 24 Anion Gap 13 BUN 18 Creatinine 0.75 Est GFR ( Amer) > 60 Est GFR (Non-Af Amer) > 60 Glucose 138 H Calcium 8.6 05/28/17 05/28/17 05/29/17 22:40 22:40 04:59 Creatine Kinase 843 H 787 H CK-MB (CK-2) 6.69 H Troponin I 0.069 05/29/17 05/29/17 05/29/17 04:59 10:36 10:36 Creatine Kinase 747 H CK-MB (CK-2) 7.44 H 6.82 H Troponin I 0.052 0.042 Impressions: Head CT 05/28/17 14:21 IMPRESSION: STABLE CT APPEARANCE OF THE BRAIN DEMONSTRATING CHRONIC CHANGES OF ATROPHY AND MICROVASCULAR ISCHEMIA. NO ACUTE PROCESS. EVIDENCE OF ACUTE STROKE: NO. Abdomen/Pelvis CT 05/29/17 00:00 IMPRESSION: Thick walled bladder suggests longstanding bladder outlet obstruction. No hydronephrosis or hydroureter on today's study. Hernandez catheter in the bladder, balloon is in the prostatic urethra Assessment & Plan - Diagnosis (1) Decubitus ulcer Qualifiers: Pressure ulcer location: sacral region Pressure ulcer stage: stage 3 Qualified Code(s): L89.153 - Pressure ulcer of sacral region, stage 3 Is this a current diagnosis for this admission?: Yes Plan: Patient would benefit from debridement. Will make the patient n.p.o. after midnight and will discuss with the oncoming surgeon for debridement in the OR tomorrow.
[2017-06-02] MEDS: ESCITALOPRAM OXALATE 10 MG TABLET PO SCH (22:20)
[2017-06-02] MEDS: LISINOPRIL 5 MG TABLET PO SCH (22:21)
[2017-06-03] MEDS: HYDROCORTISONE SOD SUCCINATE INJ/PF 100 MG/2 ML SDV IV SCH (06:08)
[2017-06-03] MEDS: CYCLOBENZAPRINE HCL 10 MG TABLET PO SCH ×3 (06:32→22:38)
[2017-06-03] MEDS: FUROSEMIDE 40 MG TABLET PO SCH (09:47)
[2017-06-03] MEDS: CEFTRIAXONE 1 GM/D5W RTU 1 GM/50 ML RTUPB IV SCH (09:47)
[2017-06-03] MEDS: LISINOPRIL 5 MG TABLET PO SCH ×2 (09:48→22:38)
[2017-06-03] MEDS: RISPERIDONE 1 MG TABLET PO SCH ×2 (09:48→18:18)
[2017-06-03] MEDS: FAMOTIDINE 20 MG TABLET PO SCH ×2 (09:49→22:38)
[2017-06-03] MEDS: DOCUSATE SODIUM 100 MG CAPSULE PO SCH ×2 (09:49→18:19)
--- NOTE | 2017-06-03 10:54 | PDOC PROGRESS REPORT ---
Subjective Progress Note for:: 06/03/17 Subjective:: Patient voices no complaints. He denies any shortness of breath, nausea or vomiting, diarrhea, chills nor fever. Patient denies any pain at this time as well. Staff noted increasing weight. Patient also noted to have slight increase in edema on the upper extremities. Physical Exam Vital Signs: Temp Pulse Resp BP Pulse Ox 97.2 F 60 16 174/83 H 98 06/03/17 07:32 06/03/17 07:32 06/03/17 07:32 06/03/17 07:32 06/03/17 07:32 Intake & Output 06/02/17 06/03/17 06/04/17 06:59 06:59 06:59 Intake Total 3376 2975 Output Total 650 1125 Balance 2726 1850 Weight 74 kg 75 kg General appearance: PRESENT: no acute distress, cooperative Head exam: PRESENT: normocephalic Eye exam: PRESENT: EOMI Mouth exam: PRESENT: moist, neck supple Neck exam: ABSENT: JVD Respiratory exam: PRESENT: clear to auscultation maile. ABSENT: rhonchi, wheezes Cardiovascular exam: PRESENT: RRR. ABSENT: gallop GI/Abdominal exam: PRESENT: normal bowel sounds, soft. ABSENT: distended, tenderness Extremities exam: PRESENT: other - Trace lower extremity edema Neurological exam: PRESENT: alert, awake Skin exam: PRESENT: dry, warm. ABSENT: cyanosis Results Laboratory Results: 06/01/17 05:10 06/02/17 04:20 05/28/17 05/28/17 05/29/17 22:40 22:40 04:59 Creatine Kinase 843 H 787 H CK-MB (CK-2) 6.69 H Troponin I 0.069 05/29/17 05/29/17 05/29/17 04:59 10:36 10:36 Creatine Kinase 747 H CK-MB (CK-2) 7.44 H 6.82 H Troponin I 0.052 0.042 Impressions: Head CT 05/28/17 14:21 IMPRESSION: STABLE CT APPEARANCE OF THE BRAIN DEMONSTRATING CHRONIC CHANGES OF ATROPHY AND MICROVASCULAR ISCHEMIA. NO ACUTE PROCESS. EVIDENCE OF ACUTE STROKE: NO. Abdomen/Pelvis CT 05/29/17 00:00 IMPRESSION: Thick walled bladder suggests longstanding bladder outlet obstruction. No hydronephrosis or hydroureter on today's study. Hernandez catheter in the bladder, balloon is in the prostatic urethra Assessment & Plan - Diagnosis (1) Altered mental status Qualifiers: Altered mental status type: unspecified Qualified Code(s): R41.82 - Altered mental status, unspecified Is this a current diagnosis for this admission?: Yes (2) Septic shock Is this a current diagnosis for this admission?: Yes (3) UTI (urinary tract infection) Qualifiers: Urinary tract infection type: site unspecified Hematuria presence: without hematuria Qualified Code(s): N39.0 - Urinary tract infection, site not specified Is this a current diagnosis for this admission?: Yes (4) Anemia Qualifiers: Anemia type: unspecified type Qualified Code(s): D64.9 - Anemia, unspecified Is this a current diagnosis for this admission?: Yes (5) Hypokalemia Is this a current diagnosis for this admission?: Yes (6) Essential hypertension Is this a current diagnosis for this admission?: Yes (7) History of stroke Is this a current diagnosis for this admission?: Yes (8) Dementia Qualifiers: Dementia type: unspecified type Dementia behavioral disturbance: without behavioral disturbance Qualified Code(s): F03.90 - Unspecified dementia without behavioral disturbance Is this a current diagnosis for this admission?: Yes (9) Decubitus ulcer of buttock, stage 2 Qualifiers: Laterality: right Qualified Code(s): L89.312 - Pressure ulcer of right buttock, stage 2 Is this a current diagnosis for this admission?: Yes - Time Time Spent with patient: 25-34 minutes - Plan Summary Plan Summary: We are going to discontinue the steroid. We will decrease intravenous fluids. Surgery was consulted. Patient to go for debridement of the wound today. Continue current antibiotic at this time. Continue supportive care. We will transition to oral antibiotics once completed surgery and diet resume.
--- NOTE | 2017-06-03 20:37 | PDOC PROGRESS REPORT ---
Subjective Progress Note for:: 06/03/17 Physical Exam Vital Signs: Temp Pulse Resp BP Pulse Ox 97.9 F 80 20 122/55 L 99 06/03/17 19:57 06/03/17 20:00 06/03/17 20:00 06/03/17 20:00 06/03/17 20:00 Intake & Output 06/02/17 06/03/17 06/04/17 06:59 06:59 06:59 Intake Total 3376 2975 0 Output Total 650 1125 1800 Balance 2726 1850 -1800 Weight 74 kg 75 kg Results Laboratory Results: 06/01/17 05:10 06/02/17 04:20 05/28/17 05/28/17 05/29/17 22:40 22:40 04:59 Creatine Kinase 843 H 787 H CK-MB (CK-2) 6.69 H Troponin I 0.069 05/29/17 05/29/17 05/29/17 04:59 10:36 10:36 Creatine Kinase 747 H CK-MB (CK-2) 7.44 H 6.82 H Troponin I 0.052 0.042 Impressions: Head CT 05/28/17 14:21 IMPRESSION: STABLE CT APPEARANCE OF THE BRAIN DEMONSTRATING CHRONIC CHANGES OF ATROPHY AND MICROVASCULAR ISCHEMIA. NO ACUTE PROCESS. EVIDENCE OF ACUTE STROKE: NO. Abdomen/Pelvis CT 05/29/17 00:00 IMPRESSION: Thick walled bladder suggests longstanding bladder outlet obstruction. No hydronephrosis or hydroureter on today's study. Hernandez catheter in the bladder, balloon is in the prostatic urethra Assessment & Plan - Diagnosis (1) Decubitus ulcer Qualifiers: Pressure ulcer location: sacral region Pressure ulcer stage: stage 3 Qualified Code(s): L89.153 - Pressure ulcer of sacral region, stage 3 Is this a current diagnosis for this admission?: Yes Plan: Patient is scheduled for debridement in the operating room tomorrow Tuesday, . Proximal time is noon.
[2017-06-03] MEDS: ESCITALOPRAM OXALATE 10 MG TABLET PO SCH (22:37)
[2017-06-03] MEDS ORDERED: (PENDING PHARMACY ID) (Dextran 70/Hypromellose [Artificial Tears] 1 EACH) OP PRN (23:36)
[2017-06-03] MEDS ORDERED: NORMAL SALINE 1000 ML 500 ML IV ONE (23:36)
[2017-06-03] MEDS ORDERED: POLYVINYL ALCOHOL 1.4% OPH SOLN 15 ML OU PRN (23:53)
[2017-06-04] MEDS: CYCLOBENZAPRINE HCL 10 MG TABLET PO SCH ×3 (05:36→21:11)
[2017-06-04] MEDS ORDERED: DEXAMETHASONE SOD PHOSPHATE INJ 4 MG/1 ML VIAL ONE (07:55)
[2017-06-04] MEDS ORDERED: ONDANSETRON HCL INJ/PF 4 MG/2 ML SDV ONE (07:55)
[2017-06-04] MEDS ORDERED: LIDOCAINE 2% INJ-PF (20 MG/ML) 10 ML AMPUL ONE (07:55)
[2017-06-04] MEDS ORDERED: METOCLOPRAMIDE HCL INJ/PF 10 MG/2 ML SDV ONE (07:55)
[2017-06-04] MEDS: CEFTRIAXONE 1 GM/D5W RTU 1 GM/50 ML RTUPB IV SCH (09:29)
[2017-06-04] MEDS: FUROSEMIDE 40 MG TABLET PO SCH (09:32)
[2017-06-04] MEDS: RISPERIDONE 1 MG TABLET PO SCH ×2 (09:32→18:58)
[2017-06-04] MEDS: FAMOTIDINE 20 MG TABLET PO SCH ×2 (09:32→21:11)
[2017-06-04] MEDS: ENOXAPARIN SODIUM INJ 30 MG/0.3 ML DISP.SYRIN SUBCUT SCH (09:32)
[2017-06-04] MEDS: DOCUSATE SODIUM 100 MG CAPSULE PO SCH ×2 (09:32→18:58)
--- NOTE | 2017-06-04 12:20 | PDOC PROGRESS REPORT ---
Subjective Progress Note for:: 06/04/17 Subjective:: Patient had debridement yesterday. No reported temperature spikes, nausea or vomiting. Patient reports no pain or shortness of breath nor diarrhea. Cultures so far were inconclusive. Physical Exam Vital Signs: Temp Pulse Resp BP Pulse Ox 98.0 F 67 18 145/60 H 97 06/04/17 11:36 06/04/17 12:00 06/04/17 12:00 06/04/17 12:00 06/04/17 12:00 Intake & Output 06/03/17 06/04/17 06/05/17 06:59 06:59 06:59 Intake Total 2975 955 Output Total 1125 2750 Balance 1850 -1795 Weight 75 kg 74.1 kg General appearance: PRESENT: no acute distress, cooperative Head exam: PRESENT: normocephalic Eye exam: PRESENT: EOMI Mouth exam: PRESENT: moist, neck supple Neck exam: ABSENT: JVD Respiratory exam: PRESENT: clear to auscultation maile Cardiovascular exam: PRESENT: RRR. ABSENT: gallop GI/Abdominal exam: PRESENT: soft. ABSENT: distended, tenderness Extremities exam: ABSENT: pedal edema Neurological exam: PRESENT: alert, awake Skin exam: PRESENT: dry, warm. ABSENT: cyanosis Results Laboratory Results: 06/01/17 05:10 06/02/17 04:20 05/28/17 05/28/17 05/29/17 22:40 22:40 04:59 Creatine Kinase 843 H 787 H CK-MB (CK-2) 6.69 H Troponin I 0.069 05/29/17 05/29/17 05/29/17 04:59 10:36 10:36 Creatine Kinase 747 H CK-MB (CK-2) 7.44 H 6.82 H Troponin I 0.052 0.042 Impressions: Head CT 05/28/17 14:21 IMPRESSION: STABLE CT APPEARANCE OF THE BRAIN DEMONSTRATING CHRONIC CHANGES OF ATROPHY AND MICROVASCULAR ISCHEMIA. NO ACUTE PROCESS. EVIDENCE OF ACUTE STROKE: NO. Abdomen/Pelvis CT 05/29/17 00:00 IMPRESSION: Thick walled bladder suggests longstanding bladder outlet obstruction. No hydronephrosis or hydroureter on today's study. Hernandez catheter in the bladder, balloon is in the prostatic urethra Assessment & Plan - Diagnosis (1) Altered mental status Qualifiers: Altered mental status type: unspecified Qualified Code(s): R41.82 - Altered mental status, unspecified Is this a current diagnosis for this admission?: Yes (2) Septic shock Is this a current diagnosis for this admission?: Yes (3) UTI (urinary tract infection) Qualifiers: Urinary tract infection type: site unspecified Hematuria presence: without hematuria Qualified Code(s): N39.0 - Urinary tract infection, site not specified Is this a current diagnosis for this admission?: Yes (4) Anemia Qualifiers: Anemia type: unspecified type Qualified Code(s): D64.9 - Anemia, unspecified Is this a current diagnosis for this admission?: Yes (5) Hypokalemia Is this a current diagnosis for this admission?: Yes (6) Essential hypertension Is this a current diagnosis for this admission?: Yes (7) History of stroke Is this a current diagnosis for this admission?: Yes (8) Dementia Qualifiers: Dementia type: unspecified type Dementia behavioral disturbance: without behavioral disturbance Qualified Code(s): F03.90 - Unspecified dementia without behavioral disturbance Is this a current diagnosis for this admission?: Yes (9) Decubitus ulcer of buttock, stage 2 Qualifiers: Laterality: right Qualified Code(s): L89.312 - Pressure ulcer of right buttock, stage 2 Is this a current diagnosis for this admission?: Yes - Time Time Spent with patient: 15-24 minutes - Plan Summary Plan Summary: Continue aortic and wound care. Patient's source of infection likely his wound. WBC has now normalized. We will plan transferring the patient back to halfway early next week.
[2017-06-04] MEDS ORDERED: PROMETHAZINE HCL INJ 25 MG/1 ML VIAL IV PRN ×2 (14:02)
[2017-06-04] MEDS ORDERED: MEPERIDINE HCL/PF INJ 25 MG/1 ML DISP.SYRIN IV PRN (14:02)
[2017-06-04] MEDS ORDERED: FENTANYL CITRATE INJ/PF 100 MCG/2 ML AMPUL IV PRN ×3 (14:02)
[2017-06-04] MEDS ORDERED: DIPHENHYDRAMINE HCL 50 MG/ML VIAL IV PRN (14:02)
[2017-06-04] MEDS ORDERED: FENTANYL CITRATE INJ/PF 100 MCG/2 ML AMPUL ONE (14:04)
[2017-06-04] MEDS ORDERED: MIDAZOLAM 2 MG/2 ML INJ ONE (14:04)
[2017-06-04] MEDS ORDERED: EPHEDRINE SULFATE INJ 50 MG/1 ML AMPULE ONE (14:04)
[2017-06-04] MEDS ORDERED: KETAMINE HCL INJ 500 MG/10 ML VIAL ONE (14:04)
[2017-06-04] MEDS ORDERED: PROPOFOL INJ 200 MG/20 ML VIAL IV ONE (14:04)
--- NOTE | 2017-06-04 14:54 | Operative Report ---
Operative Report DATE OF SURGERY: 06/04/17 PREOPERATIVE DIAGNOSIS: Stage III right ischial pressure wound POSTOPERATIVE DIAGNOSIS: Same OPERATION: Debridement of right ischial pressure wound SURGEON: ALYX SAMUEL ANESTHESIA: Moderate Sedation TISSUE REMOVED OR ALTERED: Necrotic skin COMPLICATIONS: None ESTIMATED BLOOD LOSS: None INTRAOPERATIVE FINDINGS: Stage III pressure wound right ischium measures 1.2 x 3.0 x 0.4 cm. There is undermining at 6:00. Undermining measures 1 cm. PROCEDURE: Patient was appropriately identified and brought to the operating room. Timeout was taken to identify the patient and the procedure. All members of the operating room team agreed upon the timeout is agreed upon by all members of the operating room team. He was left on his hospital bed. He was given sedation by anesthesia and rolled on his right side. The right buttock was prepped and draped in a sterile manner. The pickups and a scalpel blade the necrotic skin was excised sharply. The base of the wound was treated of due date. The wound was explored. The undermining area at 6:00 was cleaned. The wound was packed with Xeroform packing and is dry dressing was applied. The patient was awakened in the operating room and removed to the recovery room in stable condition.
[2017-06-04] MEDS: DEXTROSE 5%-NORMAL SALINE 1,000 ML IV PRN (16:51)
[2017-06-04] MEDS: ESCITALOPRAM OXALATE 10 MG TABLET PO SCH (21:11)
[2017-06-05] MEDS: DEXTROSE 5%-NORMAL SALINE 1,000 ML IV PRN ×2 (00:05→07:03)
[2017-06-05] MEDS: CYCLOBENZAPRINE HCL 10 MG TABLET PO SCH ×3 (05:01→21:46)
[2017-06-05] MEDS: CEFTRIAXONE 1 GM/D5W RTU 1 GM/50 ML RTUPB IV SCH (09:45)
[2017-06-05] MEDS: ENOXAPARIN SODIUM INJ 30 MG/0.3 ML DISP.SYRIN SUBCUT SCH (09:45)
[2017-06-05] MEDS: FUROSEMIDE 40 MG TABLET PO SCH (09:45)
[2017-06-05] MEDS: RISPERIDONE 1 MG TABLET PO SCH ×2 (09:46→18:12)
[2017-06-05] MEDS: DOCUSATE SODIUM 100 MG CAPSULE PO SCH ×2 (09:46→18:12)
[2017-06-05] MEDS: FAMOTIDINE 20 MG TABLET PO SCH ×2 (09:46→21:46)
--- NOTE | 2017-06-05 11:31 | PDOC PROGRESS REPORT ---
Subjective Progress Note for:: 06/05/17 Subjective:: Patient is doing well. Denies any chills or fever, shortness of breath, or pain. No reported nausea vomiting or diarrhea. Patient tolerating diet well. Physical Exam Vital Signs: Temp Pulse Resp BP Pulse Ox 98.6 F 74 18 155/71 H 99 06/05/17 08:12 06/05/17 08:12 06/05/17 08:12 06/05/17 08:12 06/05/17 08:12 Intake & Output 06/04/17 06/05/17 06/06/17 06:59 06:59 06:59 Intake Total 955 2059 Output Total 2750 1700 Balance -1795 359 Weight 74.1 kg 73.5 kg General appearance: PRESENT: no acute distress, cooperative Head exam: PRESENT: normocephalic Eye exam: PRESENT: EOMI Mouth exam: PRESENT: moist, neck supple Neck exam: ABSENT: JVD Respiratory exam: PRESENT: clear to auscultation maile. ABSENT: rhonchi, wheezes Cardiovascular exam: PRESENT: irregular rhythm. ABSENT: gallop GI/Abdominal exam: PRESENT: normal bowel sounds, soft. ABSENT: distended, tenderness Extremities exam: ABSENT: pedal edema Neurological exam: PRESENT: alert, awake Skin exam: PRESENT: dry, warm. ABSENT: cyanosis Results Laboratory Results: 06/01/17 05:10 06/02/17 04:20 05/28/17 05/28/17 05/29/17 22:40 22:40 04:59 Creatine Kinase 843 H 787 H CK-MB (CK-2) 6.69 H Troponin I 0.069 05/29/17 05/29/17 05/29/17 04:59 10:36 10:36 Creatine Kinase 747 H CK-MB (CK-2) 7.44 H 6.82 H Troponin I 0.052 0.042 Impressions: Head CT 05/28/17 14:21 IMPRESSION: STABLE CT APPEARANCE OF THE BRAIN DEMONSTRATING CHRONIC CHANGES OF ATROPHY AND MICROVASCULAR ISCHEMIA. NO ACUTE PROCESS. EVIDENCE OF ACUTE STROKE: NO. Abdomen/Pelvis CT 05/29/17 00:00 IMPRESSION: Thick walled bladder suggests longstanding bladder outlet obstruction. No hydronephrosis or hydroureter on today's study. Hernandez catheter in the bladder, balloon is in the prostatic urethra Assessment & Plan - Diagnosis (1) Altered mental status Qualifiers: Altered mental status type: unspecified Qualified Code(s): R41.82 - Altered mental status, unspecified Is this a current diagnosis for this admission?: Yes (2) Septic shock Is this a current diagnosis for this admission?: Yes (3) UTI (urinary tract infection) Qualifiers: Urinary tract infection type: site unspecified Hematuria presence: without hematuria Qualified Code(s): N39.0 - Urinary tract infection, site not specified Is this a current diagnosis for this admission?: Yes (4) Anemia Qualifiers: Anemia type: unspecified type Qualified Code(s): D64.9 - Anemia, unspecified Is this a current diagnosis for this admission?: Yes (5) Hypokalemia Is this a current diagnosis for this admission?: Yes (6) Essential hypertension Is this a current diagnosis for this admission?: Yes (7) History of stroke Is this a current diagnosis for this admission?: Yes (8) Dementia Qualifiers: Dementia type: unspecified type Dementia behavioral disturbance: without behavioral disturbance Qualified Code(s): F03.90 - Unspecified dementia without behavioral disturbance Is this a current diagnosis for this admission?: Yes (9) Decubitus ulcer of buttock, stage 2 Qualifiers: Laterality: right Qualified Code(s): L89.312 - Pressure ulcer of right buttock, stage 2 Is this a current diagnosis for this admission?: Yes - Time Time Spent with patient: 15-24 minutes - Plan Summary Plan Summary: Discontinue ceftriaxone. Begin oral Augmentin. Continue other medications and supportive care. Continue wound care. Patient continues to improve and can be transferred back to alf facility in the morning.
--- NOTE | 2017-06-05 11:44 | PDOC PROGRESS REPORT ---
Subjective Progress Note for:: 06/05/17 Subjective:: Status post debridement of right buttock wound on 06/04/2017. Stage III pressure wound. Physical Exam Vital Signs: Temp Pulse Resp BP Pulse Ox 98.6 F 74 18 155/71 H 99 06/05/17 08:12 06/05/17 08:12 06/05/17 08:12 06/05/17 08:12 06/05/17 08:12 Intake & Output 06/04/17 06/05/17 06/06/17 06:59 06:59 06:59 Intake Total 955 2059 Output Total 2750 1700 Balance -1795 359 Weight 74.1 kg 73.5 kg Additional comments: The dressing was changed with the nurse today. The wound is clean without necrotic tissue. Early granulation in the base of the wound. Results Laboratory Results: 06/01/17 05:10 06/02/17 04:20 05/28/17 05/28/17 05/29/17 22:40 22:40 04:59 Creatine Kinase 843 H 787 H CK-MB (CK-2) 6.69 H Troponin I 0.069 05/29/17 05/29/17 05/29/17 04:59 10:36 10:36 Creatine Kinase 747 H CK-MB (CK-2) 7.44 H 6.82 H Troponin I 0.052 0.042 Impressions: Head CT 05/28/17 14:21 IMPRESSION: STABLE CT APPEARANCE OF THE BRAIN DEMONSTRATING CHRONIC CHANGES OF ATROPHY AND MICROVASCULAR ISCHEMIA. NO ACUTE PROCESS. EVIDENCE OF ACUTE STROKE: NO. Abdomen/Pelvis CT 05/29/17 00:00 IMPRESSION: Thick walled bladder suggests longstanding bladder outlet obstruction. No hydronephrosis or hydroureter on today's study. Hernandez catheter in the bladder, balloon is in the prostatic urethra Assessment & Plan - Diagnosis (1) Decubitus ulcer Qualifiers: Pressure ulcer location: sacral region Pressure ulcer stage: stage 3 Qualified Code(s): L89.153 - Pressure ulcer of sacral region, stage 3 Is this a current diagnosis for this admission?: Yes Plan: Continue daily dressing changes with silver alginate. Add lidocaine 1% cream to wound changes for patient comfort.
[2017-06-05] MEDS ORDERED: LIDOCAINE 2% JELLY 30 ML TUBE TOP PRN (12:00)
[2017-06-05] MEDS: AMOXICILLIN TR/POT CLAVULANATE 500-125 MG TAB PO SCH ×2 (14:31→21:46)
[2017-06-05] MEDS: ESCITALOPRAM OXALATE 10 MG TABLET PO SCH (21:46)
[2017-06-06] MEDS: CYCLOBENZAPRINE HCL 10 MG TABLET PO SCH (06:00)
[2017-06-06] MEDS: AMOXICILLIN TR/POT CLAVULANATE 500-125 MG TAB PO SCH (06:00)
[2017-06-06] MEDS: DEXTROSE 5%-NORMAL SALINE 1,000 ML IV PRN (06:00)
--- NOTE | 2017-06-06 10:20 | PDOC DISCHARGE SUMMARY ---
General - Admit/Disc Date/PCP Admission Date/Primary Care Provider: 05/28/17 18:17 Discharge Date: 06/06/17 - Discharge Diagnosis (1) Altered mental status Is this a current diagnosis for this admission?: Yes (2) Septic shock Is this a current diagnosis for this admission?: Yes (3) UTI (urinary tract infection) Is this a current diagnosis for this admission?: Yes (4) Anemia Is this a current diagnosis for this admission?: Yes (5) Hypokalemia Is this a current diagnosis for this admission?: Yes (6) Essential hypertension Is this a current diagnosis for this admission?: Yes (7) History of stroke Is this a current diagnosis for this admission?: Yes (8) Dementia Is this a current diagnosis for this admission?: Yes (9) Decubitus ulcer of buttock, stage 2 Is this a current diagnosis for this admission?: Yes - Additional Information Resuscitation Status: Full Code Home Medications: Acetaminophen [Tylenol 325 mg Tablet] 650 mg PO Q4HP PRN 05/21/14 Aspirin [Mariela Chewable] 81 mg PO DAILY 05/21/14 Atorvastatin Calcium [Lipitor 20 mg Tablet] 20 mg PO QHS 05/21/14 Docusate Sodium 100 mg PO DAILY 05/21/14 Escitalopram Oxalate [Lexapro] 20 mg PO QHS 05/21/14 Furosemide [Lasix 20 mg Tablet] 40 mg PO DAILY 05/21/14 Lisinopril [Prinivil 5 mg Tablet] 5 mg PO DAILY 05/21/14 Metolazone [Zaroxolyn 5 Mg Tablet] 5 mg PO DAILY 05/21/14 [place]-3 Fatty Acids/Fish Oil [Fish Oil 1,000 Mg Capsule] 1,000 mg PO TID Dextran 70/Hypromellose [Artificial Tears] 1 each OP Q4HP PRN 05/29/17 Immodium 4 mg PO DAILYP PRN 05/29/17 Lorazepam [Ativan 0.5 mg Tablet] 0.5 mg PO Q12HP PRN 05/29/17 Risperidone 1 mg PO BID 05/29/17 Additional Information: Peacock right buttocks dressing daily and PRN with silver alginate and cover with dry dressing. Duoderm to L buttocks q3 days. History of Present Illness Patient complains of: Altered mental status History of Present Illness: BENNETT PATTON is a 71 year old male, who resides in the [facility] home was sent here because of fever with associated altered mental status, lethargy and decreased oral intake. Patient was found to be hypotensive. Patient was sent to the emergency room and found to have a urinary tract infection. The patient was then referred for admission. For details please refer to history and physical examination performed by the admitting physician. Hospital Course Hospital Course: The patient was admitted to [facility]. The patient was started on broad-spectrum antibiotics. Blood culture was performed but noted Staphylococcus epidermidis likely contaminant. Urine culture eventually showed viridans Streptococcus. The patient was maintained on intravenous antibiotic for total of 7 days and then transitioned to oral. The patient however has a decubitus ulcer which might be the cause of the infection and therefore surgery was consulted and it was debrided and started on wound care with silver dressings. In terms of the patient's hypotension is was treated with intravenous fluids and eventually the patient's blood pressure normalized. During the course it was noted to be starting to increase and therefore his medications were resumed with the lisinopril and Lasix. Subsequently the patient's mental status improved with time and was able to tolerate oral intake. He was resumed back on his Risperdal as well as Celexa. The patient remained afebrile and his WBC normalized. The rest of the hospital stays unremarkable. Physical Exam Vital Signs: Temp Pulse Resp BP Pulse Ox 98.6 F 72 17 138/57 H 97 06/06/17 07:22 06/06/17 07:22 06/06/17 07:22 06/06/17 07:22 06/06/17 07:22 Intake & Output 06/05/17 06/06/17 06/07/17 06:59 06:59 06:59 Intake Total 0253 2691 Output Total 1700 3250 Balance 359 -559 Weight 73.5 kg 72 kg General appearance: PRESENT: no acute distress, cooperative Head exam: PRESENT: normocephalic Eye exam: PRESENT: EOMI Mouth exam: PRESENT: moist, neck supple Neck exam: ABSENT: JVD Respiratory exam: PRESENT: clear to auscultation maile. ABSENT: rhonchi, wheezes Cardiovascular exam: PRESENT: RRR. ABSENT: gallop GI/Abdominal exam: PRESENT: soft. ABSENT: distended Extremities exam: ABSENT: pedal edema Neurological exam: PRESENT: alert, awake Skin exam: PRESENT: dry, warm. ABSENT: cyanosis Results Laboratory Results: 06/01/17 05:10 06/02/17 04:20 05/28/17 05/28/17 05/29/17 22:40 22:40 04:59 Creatine Kinase 843 H 787 H CK-MB (CK-2) 6.69 H Troponin I 0.069 05/29/17 05/29/17 05/29/17 04:59 10:36 10:36 Creatine Kinase 747 H CK-MB (CK-2) 7.44 H 6.82 H Troponin I 0.052 0.042 Impressions: Head CT 05/28/17 14:21 IMPRESSION: STABLE CT APPEARANCE OF THE BRAIN DEMONSTRATING CHRONIC CHANGES OF ATROPHY AND MICROVASCULAR ISCHEMIA. NO ACUTE PROCESS. EVIDENCE OF ACUTE STROKE: NO. Abdomen/Pelvis CT 05/29/17 00:00 IMPRESSION: Thick walled bladder suggests longstanding bladder outlet obstruction. No hydronephrosis or hydroureter on today's study. Hernandez catheter in the bladder, balloon is in the prostatic urethra Qualifiers [place] BEING DISCHARGED WITH ANY OF THE FOLLOWING DIAGNOSIS?: No Plan Discharge Plan: Follow-up with primary care physician in 1 week. Time Spent: Less than 30 Minutes
[2017-06-06] MEDS: RISPERIDONE 1 MG TABLET PO SCH (10:36)
[2017-06-06] MEDS: DOCUSATE SODIUM 100 MG CAPSULE PO SCH (10:36)
[2017-06-06] MEDS: ENOXAPARIN SODIUM INJ 30 MG/0.3 ML DISP.SYRIN SUBCUT SCH (10:37)
[2017-06-06] MEDS: FAMOTIDINE 20 MG TABLET PO SCH (10:37)
[2017-06-06] MEDS: FUROSEMIDE 40 MG TABLET PO SCH (10:37)
[2017-06-06 12:26] VITALS: BP 138/58
--- NOTE | 2017-06-16 09:03 | Progress Note ---
Provider Note Provider Note: Addendum to discharge summary: Decubitus ulcer likely stage III with further evaluation by surgery. Located in the right buttocks/sacral region.
== END 2017-06-06 12:15 | disposition home health service (06) | DRG 871 ==
LOC: ER 13:46 → EH 17:49 → UNDOADMIN 17:49 → EH 18:17 → 3S 19:55 → ICU 23:00 → 3N 05-30 15:02
PROVIDERS: ADMIT Internal Medicine; ATTEND Internal Medicine
PROC: 0HB8XZZ Excision of Buttock Skin, External Approach (ICD-10-PCS; principal; 2017-06-04 15:00)
DX: A41.9 Sepsis, unspecified organism (principal); G93.40 Encephalopathy, unspecified; R65.21 Severe sepsis with septic shock; L89.313 Pressure ulcer of right buttock, stage 3; L89.153 Pressure ulcer of sacral region, stage 3; N39.0 Urinary tract infection, site not specified; L03.317 Cellulitis of buttock; F03.90 Unspecified dementia, unspecified severity, without behavioral disturbance, psychotic disturbance, mood disturbance, and anxiety; B95.4 Other streptococcus as the cause of diseases classified elsewhere; E87.6 Hypokalemia; D64.9 Anemia, unspecified; Z86.73 Personal history of transient ischemic attack (TIA), and cerebral infarction without residual deficits; Z91.81 History of falling; Z74.01 Bed confinement status
CPT/HCPCS: 300; 36415; 70450; 74177; 80048; 80069; 80202; 81001; 82550; 82553; 82565; 82803; 82962; 83735; 84484; 85025; 85027; 87040; 87077; 87086; 87186; 93005; 93010; 96365; 99285; J0696; J1100; J1650; J1720; J2250; J2405; J2704; J2765; J3010; J3370; J3475; J3480; J3490; J7030; J7060

== ENCOUNTER 2017-07-12 20:17 | Inpatient (IN) | payer MEDICARE, MEDICAID ==
--- NOTE | 2017-07-12 20:24 | ER Document Report ---
ED General - General Stated Complaint: POSSIBLE SYNCOPE EPISODE Time Seen by Provider: 07/12/17 20:23 Mode of Arrival: Medic Information source: Outside Facility Records Notes: 72-year-old male with a history of altered mental status, anemia, hypertension, stroke, dementia, right buttocks decubitus, slid out of the wheelchair at [facility] and the staff thought maybe he had a seizure with loss of consciousness. He was brought in by EMS. EMS stated that here at [facility] that he was back to his baseline, which is noncommunicative with lower extremity contractions and decreased use of his left arm. No head injury. Recent hospitalization included septic shock and urinary tract infection. He was discharged on June 06, 2017 from [facility]. TRAVEL OUTSIDE OF THE [place] IN LAST 30 DAYS: No - Related Data Allergies/Adverse Reactions: No Known Allergies Allergy (Unverified 04/21/12 04:40) Past Medical History - General Information source: Patient - Social History Smoking Status: Unknown if Ever Smoked Frequency of alcohol use: None Drug Abuse: None Lives with: Alf - [facility] Family History: Reviewed & Not Pertinent - Past Medical History Cardiac Medical History: Reports: Hx Hypercholesterolemia, Hx Hypertension Pulmonary Medical History: Denies: Hx Tuberculosis Neurological Medical History: Reports: Hx Cerebrovascular Accident Renal/ Medical History: Denies: Hx Peritoneal Dialysis GI Medical History: Reports: Hx Ulcer Psychiatric Medical History: Reports: Hx Dementia Past Surgical History: Denies: Hx Pacemaker - Immunizations Hx Diphtheria, Pertussis, Tetanus Vaccination: Yes Review of Systems - Review of Systems -: Yes ROS unobtainable due to patient's medical condition Physical Exam - Vital signs Vitals: Resp Pulse Ox 15 100 07/12/17 21:03 07/12/17 21:03 Interpretation: Hypotensive - General Notes: dried food or vomit around mouth, does stick out his tongue when requested - HEENT Head: Normocephalic, Atraumatic Eyes: Normal Pupils: PERRL Mucous membranes: Dry Neck: Supple. No: Lymphadenopathy - Respiratory Respiratory status: No respiratory distress Chest status: Nontender Breath sounds: Normal Chest palpation: Normal - Cardiovascular Rhythm: Regular Heart sounds: Normal auscultation Murmur: No - Abdominal Inspection: Normal Distension: No distension Bowel sounds: Normal Tenderness: Nontender. No: Tender Organomegaly: No organomegaly - Rectal Stool: Other - diaper full of soft stool Notes: right buttocks stage 2 , 2 cm pressure sore - Back Back: Normal, Nontender - Extremities General upper extremity: Normal inspection, Nontender, Normal color, Normal temperature General lower extremity: Normal inspection, Nontender, Normal color, Normal temperature. No: Bernie's sign - Neurological Neuro grossly intact: Yes Cognition: Normal Orientation: AAOx4 [place] Coma Scale Eye Opening: Spontaneous [place] Coma Scale Verbal: Oriented [place] Coma Scale Motor: Obeys Commands [place] Coma Scale Total: 15 Speech: Normal Motor strength normal: LUE, RUE, LLE, RLE Sensory: Normal - Psychological Associated symptoms: Normal affect, Normal mood - Skin Skin Temperature: Warm Skin Moisture: Dry Skin Color: Normal Notes: see above Course - Re-evaluation Re-evalutation: 07/12/17 23:[address] marquez , get pt admitted for urosepsis. Dr morejon will admit to [facility]. - Vital Signs Vital signs: Temp Pulse Resp BP Pulse Ox 99.4 F 70 18 98/52 L 100 07/12/17 22:00 07/12/17 22:00 07/13/17 02:01 07/13/17 02:01 07/13/17 02:01 - Laboratory Result Diagrams: 07/12/17 22:00 07/12/17 22:00 Laboratory results interpreted by me: 07/12/17 07/12/17 07/12/17 22:00 22:00 22:00 WBC 11.1 H RBC 3.30 L Hgb 9.9 L Hct 28.9 L RDW 14.9 H Seg Neutrophils % 82.8 H Lymphocytes % 11.8 L Absolute Neutrophils 9.2 H VBG pH 7.43 H Potassium 3.3 L Chloride 96 L Carbon Dioxide 31 H BUN 25 H Glucose 119 H Calcium 7.8 L AST 14 L Total Protein 5.5 L Albumin 3.3 L Urine Protein Urine Blood Urine Urobilinogen Ur Leukocyte Esterase 07/12/17 22:50 WBC RBC Hgb Hct RDW Seg Neutrophils % Lymphocytes % Absolute Neutrophils VBG pH Potassium Chloride Carbon Dioxide BUN Glucose Calcium AST Total Protein Albumin Urine Protein 30 H Urine Blood SMALL H Urine Urobilinogen 2.0 H Ur Leukocyte Esterase LARGE H Discharge - Discharge Clinical Impression: syncopal episode, Bed sore on buttock, right, unstageable Fever Qualifiers: Fever type: unspecified Qualified Code(s): R50.9 - Fever, unspecified Hypotension Qualifiers: Hypotension type: other hypotension type Qualified Code(s): I95.89 - Other hypotension Urinary tract infection Qualifiers: Urinary tract infection type: site unspecified Hematuria presence: without hematuria Qualified Code(s): N39.0 - Urinary tract infection, site not specified Sepsis Qualifiers: Sepsis type: sepsis due to unspecified organism Qualified Code(s): A41.9 - Sepsis, unspecified organism Condition: Fair Disposition: ADMITTED INPATIENT Admitting Provider: Hospitalist - 1 Unit Admitted: [facility]
[2017-07-12] MEDS ORDERED: ASPIRIN 81 MG TABLET, CHEWABLE PO ONE (21:33)
[2017-07-12] MEDS ORDERED: NORMAL SALINE 1000 ML 1,000 ML IV ONE (21:41)
--- NOTE | 2017-07-12 22:05 | RADIOLOGY REPORT (SQ) ---
EXAM DESCRIPTION: CHEST SINGLE VIEW COMPLETED DATE/TIME: 07/12/2017 9:55 pm REASON FOR STUDY: syncope COMPARISON: December 2015 EXAM PARAMETERS: NUMBER OF VIEWS: One view. TECHNIQUE: Single frontal radiographic view of the chest acquired. RADIATION DOSE: NA LIMITATIONS: None. FINDINGS: LUNGS AND PLEURA: No opacities, masses or pneumothorax. No pleural effusion. Small pulmon mars nodule is identified in the left lower lung field unchanged from the previous study. MEDIASTINUM AND HILAR STRUCTURES: No masses. Contour normal. HEART AND VASCULAR STRUCTURES: Heart normal in size. Normal vasculature. BONES: No acute findings. HARDWARE: None in the chest. OTHER: No other significant finding. IMPRESSION: NO ACUTE RADIOGRAPHIC FINDING IN THE CHEST. TECHNICAL DOCUMENTATION: JOB ID: [id number] [employer]- All Rights Reserved
[2017-07-12 22:14] LABS: ABSOLUTE LYMPHOCYTES (AUTO) 1.3 10^3/uL (0.5-4.7); ABSOLUTE MONOCYTES (AUTO) 0.5 10^3/uL (0.1-1.4); ABSOLUTE NEUT (AUTO) 9.2 10^3/uL (1.7-8.2); BASOPHILS % (AUTO) 0.4 % (0-2); EOSINOPHILS % (AUTO) 0.1 % (0-6); HEMATOCRIT 28.9 % (37.9-51.0); HEMOGLOBIN 9.9 g/dL (13.5-17.0); HGB HCT DIFFERENCE 0.8; LYMPHOCYTES % (AUTO) 11.8 % (13-45); MEAN CORPUSCULAR HGB CONC 34.3 g/dL (32.0-36.0); MEAN CORPUSCULAR VOLUME 88 fl (80-97); MONOCYTES % (AUTO) 4.9 % (3-13); RED CELL DISTRIBUTION WIDTH 14.9 % (11.5-14.0); SEGMENTED NEUTROPHILS % (AUTO) 82.8 % (42-78); WHITE BLOOD COUNT 11.1 10^3/uL (4.0-10.5)
[2017-07-12 22:18] LABS: VENOUS BLOOD BASE EXCESS 6.4 mmol/L; VENOUS BLOOD HCO3 31.9 mmol/L (20-32); VENOUS BLOOD PH 7.43 (7.30-7.42)
[2017-07-12 22:35] LABS: ALANINE AMINOTRANSFERASE 26 U/L (21-72); ALBUMIN 3.3 g/dL (3.5-5.0); ALKALINE PHOSPHATASE 72 U/L (38-126); ANION GAP 11 (5-19); ASPARTATE AMINO TRANSFERASE 14 U/L (17-59); BILIRUBIN,DIRECT 0.4 mg/dL (0.0-0.4); BILIRUBIN,TOTAL 0.5 mg/dL (0.2-1.3); BLOOD UREA NITROGEN 25 mg/dL (7-20); CALCIUM 7.8 mg/dL (8.4-10.2); CARBON DIOXIDE 31 mmol/L (22-30); CHLORIDE 96 mmol/L (98-107); CREATINE KINASE 105 U/L (55-170); CREATININE RESULT 1.11 mg/dL (0.52-1.25); GLUCOSE 119 mg/dL (75-110); MAGNESIUM 1.6 mg/dL (1.6-2.3); POTASSIUM 3.3 mmol/L (3.6-5.0); SODIUM 137.8 mmol/L (137-145); TOTAL PROTEIN 5.5 g/dL (6.3-8.2)
[2017-07-12 22:47] LABS: CREATINE KINASE MB 1.9 ng/mL (<4.55)
[2017-07-12 22:55] LABS: TROPONIN I 0.052 ng/mL
[2017-07-12 23:23] LABS: APPEARANCE,URINE CLOUDY; BILIRUBIN,URINE NEGATIVE (NEGATIVE); GLUCOSE, URINE NEGATIVE (NEGATIVE); KETONES,URINE NEGATIVE (NEGATIVE); LEUKOCYTE ESTERASE,URINE LARGE (NEGATIVE); NITRITE,URINE NEGATIVE (NEGATIVE); PROTEIN,URINE 30 mg/dL (NEGATIVE); URINE SPECIFIC GRAVITY 1.012
[2017-07-12] MEDS ORDERED: CEFTRIAXONE 1 GM/D5W RTU 1 GM/50 ML RTUPB IV ONE (23:29)
[2017-07-12] MEDS ORDERED: POTASSIUM CHLORIDE 20 MEQ/15 ML UDCUP PO ONE (23:30)
[2017-07-12] MEDS ORDERED: NORMAL SALINE 1000 ML 500 ML IV ONE (23:31)
[2017-07-13] MEDS ORDERED: ACETAMINOPHEN 650 MG SUPP.RECT PR ONE (00:24)
[2017-07-13] MEDS ORDERED: DEXTROSE 50%-WATER 25 GM/50 ML DISP.SYRIN IV PRN ×2 (00:25)
[2017-07-13] MEDS ORDERED: NORMAL SALINE 1000 ML 1,000 ML IV PRN (00:25)
[2017-07-13] MEDS ORDERED: GLUCAGON,HUMAN RECOMB 1 MG INJ SUBCUT PRN (00:25)
[2017-07-13] MEDS ORDERED: PROMETHAZINE HCL 25 MG SUPP.RECT PR PRN (00:25)
[2017-07-13] MEDS ORDERED: DEXTROSE 40% GEL 15 GM TUBE PO PRN ×2 (00:25)
[2017-07-13] MEDS ORDERED: ACETAMINOPHEN 650 MG SUPP.RECT PR PRN (00:25)
[2017-07-13 01:05] LABS: URINE BARBITURATES SCREEN NEGATIVE; URINE METHADONE SCREEN NEGATIVE; URINE OPIATES LOW NEGATIVE; URINE PHENCYCLIDINE SCREEN NEGATIVE
[2017-07-13] MEDS ORDERED: MAGNESIUM SULFATE/D5W 1 GM/100 ML RTUPB IV ONE (01:46)
[2017-07-13] MEDS: POTASSI CL 20 MEQ/50 ML RIDER 20 MEQ/50 ML RTUPB IV SCH ×3 (02:29→06:34)
--- NOTE | 2017-07-13 05:37 | PDOC H&P ---
History of Present Illness Admission Date/PCP: 07/13/17 00:13 History of Present Illness: BENNETT PATTON is a 72 year old male with past medical history of prior CVA, congestive heart failure, hypertension, and dementia who presents from his care facility after having questionable seizure-like activity. It is reported the patient was in his wheelchair and slid out of his wheelchair. There is no other report and there is no family present at bedside and I am unable to obtain any history from family. Patient was found in the emergency department to have a temperature of 99.7F, hypotension, and to have soft stool in his diaper. Patient also has a right buttock decubitus ulceration. He is referred to hospital service for UTI with hypotension and sepsis. Past Medical History Cardiac Medical History: Reports: Congestive Heart Failure, Hyperlipidema, Hypertension Pulmonary Medical History: Denies: Tuberculosis Neurological Medical History: Reports: Ischemic CVA Psychiatric Medical History: Reports: Dementia Hematology: Reports: Anemia Past Surgical History Past Surgical History: Reports: None Denies: Pacemaker Social History Lives with: [facility] Smoking Status: Unknown if Ever Smoked Frequency of Alcohol Use: None Hx Recreational Drug Use: No Hx Prescription Drug Abuse: No - Advance Directive Resuscitation Status: Full Code Surrogate healthcare decision maker:: Alice Bowens [phone] Family History Family History: CAD Parental Family History Reviewed: Yes Children Family History Reviewed: NA Sibling(s) Family History Reviewed.: Yes Medication/Allergy Home Medications: Acetaminophen [Tylenol 325 mg Tablet] 650 mg PO Q4HP PRN 05/21/14 Aspirin [Mariela Chewable Aspirin] 81 mg PO DAILY 05/21/14 Atorvastatin Calcium [Lipitor 20 mg Tablet] 20 mg PO QHS 05/21/14 Docusate Sodium 100 mg PO DAILY 05/21/14 Escitalopram Oxalate [Lexapro] 20 mg PO QHS 05/21/14 Furosemide [Lasix 20 mg Tablet] 40 mg PO DAILY 05/21/14 Lisinopril [Prinivil 5 mg Tablet] 5 mg PO DAILY 05/21/14 Hulett-3 Fatty Acids/Fish Oil [Fish Oil 1,000 mg Capsule] 1,000 mg PO TID Dextran 70/Hypromellose [Artificial Tears] 1 each OP Q4HP PRN 05/29/17 Immodium 4 mg PO DAILYP PRN 05/29/17 Risperidone 1 mg PO BID 05/29/17 Amox Tr/Potassium Clavulanate [Augmentin 875-125 mg Tablet] 1 tab PO BID #10 tablet 06/06/17 Docusate Sodium [Colace 100 mg Capsule] 100 mg PO BID capsule 06/06/17 Allergies/Adverse Reactions: No Known Allergies Allergy (Unverified 04/21/12 04:40) Review of Systems ROS unobtainable: Due to mental status Physical Exam Vital Signs: Temp Pulse Resp BP Pulse Ox 99.4 F 70 17 112/79 99 07/12/17 22:00 07/12/17 22:00 07/13/17 04:45 07/13/17 04:45 07/13/17 05:00 General appearance: PRESENT: mild distress, other - Uncooperative with exam Head exam: PRESENT: atraumatic, normocephalic Eye exam: PRESENT: conjunctiva pink, PERRLA. ABSENT: conjunctival injection, scleral icterus Ear exam: PRESENT: normal external ear exam Mouth exam: PRESENT: dry mucosa, tongue midline Neck exam: ABSENT: JVD, lymphadenopathy, thyromegaly, tracheal deviation Respiratory exam: PRESENT: clear to auscultation maile, symmetrical, unlabored. ABSENT: rales, rhonchi, tachypnea, wheezes Cardiovascular exam: PRESENT: RRR, +S1, +S2. ABSENT: diastolic murmur, rubs, systolic murmur Pulses: PRESENT: +1 pedal pulses bilateral Vascular exam: PRESENT: normal capillary refill GI/Abdominal exam: PRESENT: normal bowel sounds, soft. ABSENT: distended, firm , guarding, mass, organolmegaly, rebound, rigid, tenderness Rectal exam: PRESENT: deferred Gentrourinary exam: PRESENT: other - Stage III right gluteal decubiti approximately 6 cm Extremities exam: PRESENT: full ROM. ABSENT: calf tenderness, clubbing, pedal edema Musculoskeletal exam: PRESENT: deformity - Contracted Neurological exam: PRESENT: alert, awake, motor sensory deficit - [place], and moves arms somewhat. ABSENT: oriented to person, oriented to place, oriented to time, oriented to situation, CN II-XII grossly intact Psychiatric exam: PRESENT: appropriate affect, normal mood. ABSENT: homicidal ideation, suicidal ideation Skin exam: PRESENT: dry, warm. ABSENT: cyanosis, intact - Stage III decubitus on right buttock, rash Results Laboratory Results: 07/13/17 00:40 Magnesium 1.7 07/13/17 00:40 Troponin I 0.111 07/12/17 07/12/17 07/12/17 22:00 22:00 22:00 WBC 11.1 H Hgb 9.9 L Hct 28.9 L Plt Count 200 VBG pH Sodium 137.8 Potassium 3.3 L Chloride 96 L Carbon Dioxide 31 H Anion Gap 11 BUN 25 H Creatinine 1.11 Glucose 119 H Lactic Acid Calcium 7.8 L Magnesium 1.6 Total Bilirubin 0.5 Direct Bilirubin 0.4 AST 14 L ALT 26 Alkaline Phosphatase 72 Creatine Kinase 105 Troponin I 0.052 Total Protein 5.5 L Albumin 3.3 L TSH 07/12/17 07/12/17 07/12/17 22:00 22:00 22:00 WBC Hgb Hct Plt Count VBG pH 7.43 H Sodium Potassium Chloride Carbon Dioxide Anion Gap BUN Creatinine Glucose Lactic Acid 1.0 Calcium Magnesium Total Bilirubin Direct Bilirubin AST ALT Alkaline Phosphatase Creatine Kinase Troponin I Total Protein Albumin TSH 2.01 Impressions: Chest X-Ray 07/12/17 21:33 IMPRESSION: NO ACUTE RADIOGRAPHIC FINDING IN THE CHEST. Status: Imported from PACS Assessment & Plan - Diagnosis (1) Sepsis Qualifiers: Sepsis type: sepsis due to unspecified organism Qualified Code(s): A41.9 - Sepsis, unspecified organism Is this a current diagnosis for this admission?: Yes Plan: Present on admission secondary to urinary tract infection. Will bolus patient judiciously in light of his history of congestive heart failure. Attempt to maintain map greater than 65. If unsuccessful with IV fluids will use pressors. Selected Entries 07/12/17 07/12/17 22:00 22:01 Temperature 99.4 F Respiratory 14 Rate Blood Pressure 88/56 L 07/12/17 22:00 WBC 11.1 H (2) Hypotension Qualifiers: Hypotension type: other hypotension type Qualified Code(s): I95.89 - Other hypotension Is this a current diagnosis for this admission?: Yes Plan: Will bolus patient judiciously in light of his history of congestive heart failure. Attempt to maintain map greater than 65. If unsuccessful with IV fluids will use pressors. (3) UTI (urinary tract infection) Qualifiers: Urinary tract infection type: site unspecified Hematuria presence: without hematuria Qualified Code(s): N39.0 - Urinary tract infection, site not specified Is this a current diagnosis for this admission?: Yes Plan: Obtain cultures in place patient empirically on Rocephin (4) Altered mental status Qualifiers: Altered mental status type: unspecified Qualified Code(s): R41.82 - Altered mental status, unspecified Is this a current diagnosis for this admission?: Yes Plan: Likely secondary to underlying sepsis. (5) Anemia Qualifiers: Anemia type: unspecified type Qualified Code(s): D64.9 - Anemia, unspecified Is this a current diagnosis for this admission?: Yes Plan: Monitor and transfuse if patient drops below 8 (6) Decubitus ulcer Qualifiers: Pressure ulcer location: sacral region Pressure ulcer stage: stage 3 Qualified Code(s): L89.153 - Pressure ulcer of sacral region, stage 3 Is this a current diagnosis for this admission?: Yes Plan: Patient with stage III sacral decubitus. Patient is to be using silver alginate and cover this area and change as needed as well as daily. (7) Dementia Qualifiers: Dementia type: unspecified type Dementia behavioral disturbance: without behavioral disturbance Qualified Code(s): F03.90 - Unspecified dementia without behavioral disturbance Is this a current diagnosis for this admission?: Yes Plan: Supportive care (8) Essential hypertension Is this a current diagnosis for this admission?: Yes Plan: Currently hypotensive, hold antihypertensives (9) History of stroke Is this a current diagnosis for this admission?: Yes (10) Hypokalemia Is this a current diagnosis for this admission?: Yes Plan: Replete and recheck. Check magnesium. - Time Time Spent: 30 to 50 Minutes Medications reviewed and adjusted accordingly: Yes Anticipated discharge: SNF Within: Other - Inpatient Certification Based on my medical assessment, after consideration of the patient's comorbidities, presenting symptoms, or acuity I expect that the services needed warrant INPATIENT care.: Yes I certify that my determination is in accordance with my understanding of Medicare's requirements for reasonable and necessary INPATIENT services [42 CFR 412.3e].: Yes Medical Necessity: Need For IV Fluids, Need for IV Antibiotics Post Hospital Care: D/C Information Technology Manager Documentation
[2017-07-13] MEDS: HEPARIN SOD (PORCINE) 5,000 UNIT/ML 1 ML SYRINGE SUBCUT SCH ×3 (06:35→21:17)
--- NOTE | 2017-07-13 08:08 | EKG REPORT ---
SEVERITY:- ABNORMAL ECG - ACCELERATED JUNCTIONAL RHYTHM : Confirmed by: Rafy Flores MD 13-Jul-2017 08:08:08
--- NOTE | 2017-07-13 08:58 | PDOC PROGRESS REPORT ---
Subjective Progress Note for:: 07/13/17 Subjective:: Patient can only mumble, cannot understand what he is saying. Unable to obtain subjective. He seemed to nod no when I asked if he was having any pain or difficulty with breathing. Reason For Visit: SEPSIS, HYPOTENSION, UTI, possible acute coronary syndrome Physical Exam Vital Signs: Temp Pulse Resp BP Pulse Ox 99.5 F 70 16 103/55 L 100 07/13/17 02:00 07/12/17 22:00 07/13/17 06:30 07/13/17 06:30 07/13/17 06:30 General appearance: PRESENT: no acute distress, disheveled, thin Head exam: PRESENT: atraumatic, normocephalic Eye exam: PRESENT: conjunctival injection Mouth exam: PRESENT: dry mucosa Neck exam: ABSENT: carotid bruit, lymphadenopathy Respiratory exam: PRESENT: clear to auscultation maile, crackles, decreased breath sounds. ABSENT: accessory muscle use, prolonged expiratory phas, rales, rhonchi, wheezes Cardiovascular exam: PRESENT: RRR. ABSENT: systolic murmur Vascular exam: PRESENT: normal capillary refill GI/Abdominal exam: PRESENT: normal bowel sounds, soft. ABSENT: distended, guarding, mass, organolmegaly, rebound, tenderness Extremities exam: PRESENT: other - No edema, legs contracted up towards the chest Musculoskeletal exam: PRESENT: other - Patient lying on right side, legs contracted towards the chest, barely moving spontaneously Neurological exam: PRESENT: altered. ABSENT: oriented to person, oriented to place, oriented to time, oriented to situation Psychiatric exam: PRESENT: other - Cannot assess secondary to clinical condition. ABSENT: agitated, anxious Skin exam: PRESENT: other - Right hip decubitus ulcer, per report this is a stage II and I will review later. ABSENT: erythema, jaundice, pallor Results Laboratory Results: 07/13/17 00:40 Magnesium 1.7 07/13/17 07/13/17 00:40 06:15 Troponin I 0.111 0.129 Impressions: Chest X-Ray 07/12/17 21:33 IMPRESSION: NO ACUTE RADIOGRAPHIC FINDING IN THE CHEST. Assessment & Plan - Diagnosis (1) Elevated troponin I level Is this a current diagnosis for this admission?: Yes Plan: Troponins are trending up slightly, EKG with possible ST elevations, will continue to trend troponins, will consult cardiology, this may be related not to acute coronary syndrome but more to sepsis and heart failure. (2) Bed sore on buttock, right, unstageable Plan: Provide wound care. Provide turning frequently. (3) Hypotension Qualifiers: Hypotension type: other hypotension type Qualified Code(s): I95.89 - Other hypotension Is this a current diagnosis for this admission?: Yes Plan: At this point this is secondary to sepsis. I am evaluating for possible acute coronary syndrome so that could be playing a role as well. Patient is currently on normal saline at 125 mL/h. He has received 2 normal saline boluses. Map is 64. We will continue to monitor closely and treat as indicated. (4) Sepsis Qualifiers: Sepsis type: sepsis due to unspecified organism Qualified Code(s): A41.9 - Sepsis, unspecified organism Is this a current diagnosis for this admission?: Yes Plan: Appears secondary to urinary tract infection. Patient is on ceftriaxone. Blood and urine cultures are pending. Lactic acid was normal. Pressure is trending up with IV fluids. (5) UTI (urinary tract infection) Qualifiers: Urinary tract infection type: site unspecified Hematuria presence: without hematuria Qualified Code(s): N39.0 - Urinary tract infection, site not specified Is this a current diagnosis for this admission?: Yes Plan: UA consistent with infection. Urine culture pending. Patient is on ceftriaxone. (6) Altered mental status Qualifiers: Altered mental status type: unspecified Qualified Code(s): R41.82 - Altered mental status, unspecified Is this a current diagnosis for this admission?: Yes Plan: Patient is acutely altered, acute metabolic encephalopathy, related to urinary tract infection and sepsis. Possible acute coronary syndrome. Patient also has underlying dementia. I tried to contact his next of kin Ms. Dowd who is listed in the computer. I have called twice and there is been no answer. I need to learn more about his baseline. (7) Decubitus ulcer Qualifiers: Pressure ulcer location: sacral region Pressure ulcer stage: stage 3 Qualified Code(s): L89.153 - Pressure ulcer of sacral region, stage 3 Is this a current diagnosis for this admission?: Yes Plan: We will provide wound care and frequent turning. - Time Time Spent with patient: 35 or more minutes - This patient is acutely ill with urinary tract infection, sepsis, upward trending troponins. Will ask for assistance from cardiology to evaluate acute coronary syndrome or other etiology of troponin elevation. Also, I have tried to reach his next of kin Ms. Dowd at [phone]. I have called twice and got no answer. I would like to discuss with her the patient's a full CODE STATUS given his debility, dementia, correction status. It is possible this she meets hospice criteria. Currently has a full CODE STATUS.
--- NOTE | 2017-07-13 13:18 | EKG REPORT ---
SEVERITY:- BORDERLINE ECG - SINUS OR ECTOPIC ATRIAL RHYTHM ATRIAL PREMATURE COMPLEX LOW VOLTAGE IN FRONTAL LEADS : Confirmed by: Rafy Flores MD 13-Jul-2017 13:17:44
[2017-07-13] MEDS: NORMAL SALINE 1000 ML 1,000 ML IV PRN (15:06)
[2017-07-13] MEDS: CEFTRIAXONE 1 GM/D5W RTU 1 GM/50 ML RTUPB IV SCH (21:17)
[2017-07-14] MEDS: HEPARIN SOD (PORCINE) 5,000 UNIT/ML 1 ML SYRINGE SUBCUT SCH ×3 (05:22→21:25)
[2017-07-14 06:47] LABS: ABSOLUTE BASOPHILS # (AUTO) 0.1 10^3/uL (0.0-0.2); ABSOLUTE EOSINOPHILS # (AUTO) 0.2 10^3/uL (0.0-0.6); ABSOLUTE LYMPHOCYTES (AUTO) 1.5 10^3/uL (0.5-4.7); ABSOLUTE MONOCYTES (AUTO) 0.3 10^3/uL (0.1-1.4); ABSOLUTE NEUT (AUTO) 3.9 10^3/uL (1.7-8.2); BASOPHILS % (AUTO) 1.3 % (0-2); EOSINOPHILS % (AUTO) 3.6 % (0-6); HEMATOCRIT 28.1 % (37.9-51.0); HEMOGLOBIN 9.5 g/dL (13.5-17.0); HGB HCT DIFFERENCE 0.4; LYMPHOCYTES % (AUTO) 25.7 % (13-45); MEAN CORPUSCULAR HEMOGLOBIN 29.4 pg (27.0-33.4); MEAN CORPUSCULAR HGB CONC 33.8 g/dL (32.0-36.0); MEAN CORPUSCULAR VOLUME 87 fl (80-97); RED BLOOD COUNT 3.22 10^6/uL (4.35-5.55); RED CELL DISTRIBUTION WIDTH 14.9 % (11.5-14.0); SEGMENTED NEUTROPHILS % (AUTO) 64.4 % (42-78)
[2017-07-14 07:01] LABS: ANION GAP 8 (5-19); BLOOD UREA NITROGEN 13 mg/dL (7-20); CALCIUM 8.1 mg/dL (8.4-10.2); CARBON DIOXIDE 28 mmol/L (22-30); CHLORIDE 103 mmol/L (98-107); GLUCOSE 85 mg/dL (75-110); MAGNESIUM 1.7 mg/dL (1.6-2.3); POTASSIUM 3.2 mmol/L (3.6-5.0); SODIUM 138.8 mmol/L (137-145)
[2017-07-14] MEDS: POTASSI CL 20 MEQ/50 ML RIDER 20 MEQ/50 ML RTUPB IV SCH ×2 (10:00→11:14)
--- NOTE | 2017-07-14 16:01 | PDOC PROGRESS REPORT ---
Subjective Progress Note for:: 07/14/17 Subjective:: Patient intermittently answers yes or no to questions. He has advanced dementia so this part of the interview is compromised. Per nursing staff he has been calm. He eats when fed. He is unable to ambulate on his own. No evidence of pain or shortness of breath. Reason For Visit: SEPSIS, HYPOTENSION, UTI Physical Exam Vital Signs: Temp Pulse Resp BP Pulse Ox 98.4 F 66 15 117/51 L 97 07/14/17 11:37 07/14/17 11:37 07/14/17 11:37 07/14/17 11:37 07/14/17 11:37 Intake & Output 07/13/17 07/14/17 07/15/17 06:59 06:59 06:59 Intake Total 1600 90 Balance 1600 90 Weight 63.8 kg General appearance: PRESENT: no acute distress, thin Head exam: PRESENT: atraumatic, normocephalic Eye exam: PRESENT: conjunctiva pink. ABSENT: scleral icterus Ear exam: PRESENT: normal external ear exam Mouth exam: PRESENT: moist Respiratory exam: PRESENT: clear to auscultation maile. ABSENT: rales, rhonchi, wheezes Cardiovascular exam: PRESENT: RRR. ABSENT: diastolic murmur, rubs, systolic murmur Pulses: PRESENT: normal radial pulses GI/Abdominal exam: PRESENT: normal bowel sounds, soft. ABSENT: distended, guarding, mass, organolmegaly, rebound, tenderness Extremities exam: ABSENT: pedal edema Musculoskeletal exam: PRESENT: normal inspection Neurological exam: PRESENT: awake, other - Cannot follow commands, can move himself about in bed. ABSENT: oriented to person, oriented to place Psychiatric exam: PRESENT: other - Unable to further assess as patient is nonverbal.. ABSENT: agitated, anxious Skin exam: PRESENT: other - Right hip with stage II decubitus ulcer being dressed by nursing staff Results Laboratory Results: 07/14/17 06:14 07/14/17 06:14 07/14/17 07/14/17 06:14 06:14 WBC 6.0 RBC 3.22 L Hgb 9.5 L Hct 28.1 L MCV 87 MCH 29.4 MCHC 33.8 RDW 14.9 H Plt Count 161 Seg Neutrophils % 64.4 Lymphocytes % 25.7 Monocytes % 5.0 Eosinophils % 3.6 Basophils % 1.3 Absolute Neutrophils 3.9 Absolute Lymphocytes 1.5 Absolute Monocytes 0.3 Absolute Eosinophils 0.2 Absolute Basophils 0.1 Sodium 138.8 Potassium 3.2 L Chloride 103 Carbon Dioxide 28 Anion Gap 8 BUN 13 Creatinine 0.70 Est GFR ( Amer) > 60 Est GFR (Non-Af Amer) > 60 Glucose 85 Calcium 8.1 L Magnesium 1.7 07/13/17 07/13/17 07/13/17 00:40 06:15 12:13 Troponin I 0.111 0.129 0.061 07/13/17 07/14/17 19:43 01:41 Troponin I 0.059 0.048 Impressions: Chest X-Ray 07/12/17 21:33 IMPRESSION: NO ACUTE RADIOGRAPHIC FINDING IN THE CHEST. Assessment & Plan - Diagnosis (1) Elevated troponin I level Is this a current diagnosis for this admission?: Yes Plan: Patient's troponin trended down yesterday. No evidence of acute coronary syndrome probably his troponin elevation likely related to sepsis. No evidence of acute ischemia on EKG. I discussed the patient with Dr. Encinas. Patient started on an aspirin. I do not think blood pressure can tolerate nitrate at this time. (2) Bed sore on buttock, right, unstageable Plan: Stage III decubitus wound. She has bedbound at the group home. Nursing staff is cleaning and dressing the wound with duo Derm. Will continue current care. There was no dressing on the wound when the patient arrived in the ER and there was feces in the wound. (3) Hypotension Qualifiers: Hypotension type: other hypotension type Qualified Code(s): I95.89 - Other hypotension Is this a current diagnosis for this admission?: Yes Plan: This was due to sepsis. Patient received fluid resuscitation and antibiotics. His blood pressure is recovering. (4) Sepsis Qualifiers: Sepsis type: sepsis due to unspecified organism Qualified Code(s): A41.9 - Sepsis, unspecified organism Is this a current diagnosis for this admission?: Yes Plan: Sepsis parameters resolved. Heart rate normal. White blood cell count returned to normal. Infection being treated. Fluid resuscitation complete. (5) UTI (urinary tract infection) Qualifiers: Urinary tract infection type: site unspecified Hematuria presence: without hematuria Qualified Code(s): N39.0 - Urinary tract infection, site not specified Is this a current diagnosis for this admission?: Yes Plan: Patient is on ceftriaxone for gram-negative rods in urine culture, cultures not yet final (6) Altered mental status Qualifiers: Altered mental status type: unspecified Qualified Code(s): R41.82 - Altered mental status, unspecified Is this a current diagnosis for this admission?: Yes Plan: Patient has dementia at baseline it appears that his acute encephalopathy has resolved back to his baseline, this is corroborated by his sister. (7) Dementia Qualifiers: Dementia type: unspecified type Dementia behavioral disturbance: without behavioral disturbance Qualified Code(s): F03.90 - Unspecified dementia without behavioral disturbance Is this a current diagnosis for this admission?: Yes Plan: Patient has had advancing dementia per his sister. He now lives in a group home. He is bedbound. He will eat only when fed. I had a long talk with his sister about the impending decline related to dementia. We talked about CODE STATUS at length. She is not ready to change his CODE STATUS to DNR/DNI, she is his healthcare surrogate. He wants to discuss this with her family so that they can make the right decision for him. I stressed the importance of being prepared in advance so that when he moves closer to they will have some important decisions already made. - Time Time Spent with patient: 25-34 minutes
[2017-07-14] MEDS: CEFTRIAXONE 1 GM/D5W RTU 1 GM/50 ML RTUPB IV SCH (21:25)
[2017-07-15] MEDS: HEPARIN SOD (PORCINE) 5,000 UNIT/ML 1 ML SYRINGE SUBCUT SCH ×3 (05:54→21:36)
[2017-07-15] MEDS: ASPIRIN 81 MG TABLET, ENT COATED PO SCH (11:50)
--- NOTE | 2017-07-15 16:10 | PDOC PROGRESS REPORT ---
Subjective Progress Note for:: 07/15/17 Subjective:: Unable to obtain due to mental status ROS Unable to obtain due to mental status All significant laboratories and diagnostics have been reviewed Reason For Visit: SEPSIS with HYPOTENSION, UTI Physical Exam Vital Signs: Temp Pulse Resp BP Pulse Ox 98.9 F 61 16 107/52 L 99 07/15/17 04:25 07/15/17 07:00 07/15/17 04:25 07/15/17 04:25 07/15/17 04:25 Intake & Output 07/14/17 07/15/17 07/16/17 06:59 06:59 06:59 Intake Total 1600 9351 Balance 1600 9351 Weight 63.8 kg 64.2 kg General appearance: PRESENT: no acute distress, cooperative Head exam: PRESENT: atraumatic, normocephalic Eye exam: PRESENT: conjunctiva pink, EOMI, PERRLA Ear exam: PRESENT: normal external ear exam Mouth exam: PRESENT: moist Neck exam: PRESENT: full ROM. ABSENT: JVD, tenderness Respiratory exam: PRESENT: clear to auscultation maile. ABSENT: crackles, wheezes Cardiovascular exam: PRESENT: RRR. ABSENT: diastolic murmur, systolic murmur Vascular exam: PRESENT: normal capillary refill GI/Abdominal exam: PRESENT: normal bowel sounds. ABSENT: soft, tenderness Extremities exam: ABSENT: joint swelling, pedal edema Musculoskeletal exam: PRESENT: full ROM Neurological exam: PRESENT: alert Results Laboratory Results: 07/14/17 06:14 07/14/17 16:00 07/14/17 16:00 Potassium 3.7 07/13/17 07/13/17 07/13/17 00:40 06:15 12:13 Troponin I 0.111 0.129 0.061 07/13/17 07/14/17 19:43 01:41 Troponin I 0.059 0.048 Impressions: Chest X-Ray 07/12/17 21:33 IMPRESSION: NO ACUTE RADIOGRAPHIC FINDING IN THE CHEST. Assessment & Plan - Diagnosis (1) Sepsis with hypotension Plan: Due to urinary tract infection. Resolved (2) UTI (urinary tract infection) Qualifiers: Urinary tract infection type: site unspecified Hematuria presence: without hematuria Qualified Code(s): N39.0 - Urinary tract infection, site not specified Is this a current diagnosis for this admission?: Yes Plan: Due to Proteus mirabilis. To change to Ceftin and discontinue Rocephin IV. Add Flomax. (3) Elevated troponin I level Is this a current diagnosis for this admission?: Yes Plan: Due to myocardial demand ischemia in the setting of sepsis. (4) Decubitus ulcer of buttock, stage 2 Qualifiers: Laterality: right Qualified Code(s): L89.312 - Pressure ulcer of right buttock, stage 2 Plan: Stable (5) Dementia Qualifiers: Dementia type: unspecified type Dementia behavioral disturbance: without behavioral disturbance Qualified Code(s): F03.90 - Unspecified dementia without behavioral disturbance Is this a current diagnosis for this admission?: Yes Plan: Stable but had been requiring sitters. - Time Time Spent with patient: Less than 15 minutes Medications reviewed and adjusted accordingly: Yes Anticipated discharge: SNF Within: within 24 hours - Inpatient Certification Based on my medical assessment, after consideration of the patient's comorbidities, presenting symptoms, or acuity I expect that the services needed warrant INPATIENT care.: Yes I certify that my determination is in accordance with my understanding of Medicare's requirements for reasonable and necessary INPATIENT services [42 CFR 412.3e].: Yes Medical Necessity: Risk of Complication if Not Cared For in Hospital
[2017-07-15] MEDS ORDERED: TAMSULOSIN HCL 0.4 MG CAP.SR.24H PO ONE (17:00)
[2017-07-15] MEDS: CEFUROXIME 500 MG TABLET PO SCH (17:52)
[2017-07-15] MEDS: NORMAL SALINE 1000 ML 1,000 ML IV PRN (20:52)
[2017-07-16] MEDS: HEPARIN SOD (PORCINE) 5,000 UNIT/ML 1 ML SYRINGE SUBCUT SCH ×3 (05:26→21:55)
[2017-07-16] MEDS: NORMAL SALINE 1000 ML 1,000 ML IV PRN ×2 (06:30→18:26)
[2017-07-16] MEDS: ASPIRIN 81 MG TABLET, ENT COATED PO SCH (09:08)
[2017-07-16] MEDS: CEFUROXIME 500 MG TABLET PO SCH ×2 (09:08→18:25)
--- NOTE | 2017-07-17 02:36 | PDOC PROGRESS REPORT ---
Subjective Progress Note for:: 07/16/17 Subjective:: Unable to obtain due to mental status ROS Unable to obtain due to mental status All significant laboratories and diagnostics have been reviewed Reason For Visit: SEPSIS, HYPOTENSION, UTI Physical Exam Vital Signs: Temp Pulse Resp BP Pulse Ox 98.9 F 59 L 17 129/64 H 99 07/15/17 23:24 07/16/17 02:00 07/15/17 23:24 07/15/17 23:24 07/15/17 23:24 Intake & Output 07/14/17 07/15/17 07/16/17 06:59 06:59 06:59 Intake Total 1600 9351 709 Balance 1600 9351 709 Weight 63.8 kg 64.2 kg General appearance: PRESENT: no acute distress, cooperative, well-developed, well-nourished Head exam: PRESENT: atraumatic, normocephalic Eye exam: PRESENT: EOMI, PERRLA Neck exam: PRESENT: full ROM. ABSENT: JVD Respiratory exam: PRESENT: clear to auscultation maile Cardiovascular exam: PRESENT: RRR. ABSENT: diastolic murmur, systolic murmur Vascular exam: PRESENT: normal capillary refill GI/Abdominal exam: PRESENT: normal bowel sounds, soft. ABSENT: distended, tenderness Extremities exam: ABSENT: joint swelling, pedal edema Neurological exam: PRESENT: other - demented Results Laboratory Results: 07/14/17 06:14 07/14/17 16:00 07/13/17 07/13/17 07/13/17 00:40 06:15 12:13 Troponin I 0.111 0.129 0.061 07/13/17 07/14/17 19:43 01:41 Troponin I 0.059 0.048 Impressions: Chest X-Ray 07/12/17 21:33 IMPRESSION: NO ACUTE RADIOGRAPHIC FINDING IN THE CHEST. Assessment & Plan - Diagnosis (1) Sepsis with hypotension Plan: Due to urinary tract infection. Resolved (2) UTI (urinary tract infection) Qualifiers: Urinary tract infection type: site unspecified Hematuria presence: without hematuria Qualified Code(s): N39.0 - Urinary tract infection, site not specified Is this a current diagnosis for this admission?: Yes (3) Elevated troponin I level Is this a current diagnosis for this admission?: Yes Plan: Due to myocardial demand ischemia in the setting of sepsis. (4) Decubitus ulcer of buttock, stage 2 Qualifiers: Laterality: right Qualified Code(s): L89.312 - Pressure ulcer of right buttock, stage 2 Plan: Stable (5) Dementia Qualifiers: Dementia type: unspecified type Dementia behavioral disturbance: without behavioral disturbance Qualified Code(s): F03.90 - Unspecified dementia without behavioral disturbance Is this a current diagnosis for this admission?: Yes Plan: Stable - Time Time Spent with patient: Less than 15 minutes Medications reviewed and adjusted accordingly: Yes Anticipated discharge: SNF Within: within 48 hours - Inpatient Certification Based on my medical assessment, after consideration of the patient's comorbidities, presenting symptoms, or acuity I expect that the services needed warrant INPATIENT care.: Yes I certify that my determination is in accordance with my understanding of Medicare's requirements for reasonable and necessary INPATIENT services [42 CFR 412.3e].: Yes Medical Necessity: Other - unable to transfer over the weekend
[2017-07-17] MEDS: HEPARIN SOD (PORCINE) 5,000 UNIT/ML 1 ML SYRINGE SUBCUT SCH ×3 (05:17→22:11)
[2017-07-17] MEDS: ASPIRIN 81 MG TABLET, ENT COATED PO SCH (09:37)
[2017-07-17] MEDS: CEFUROXIME 500 MG TABLET PO SCH ×2 (09:37→17:26)
--- NOTE | 2017-07-17 14:22 | PDOC PROGRESS REPORT ---
Subjective Progress Note for:: 07/17/17 Subjective:: Unable to obtain due to mental status ROS Unable to obtain due to mental status All significant laboratories and diagnostics have been reviewed Reason For Visit: SEPSIS, HYPOTENSION, UTI Physical Exam Vital Signs: Temp Pulse Resp BP Pulse Ox 98.6 F 73 16 132/55 H 98 07/17/17 04:36 07/17/17 04:36 07/17/17 04:36 07/17/17 04:36 07/17/17 04:36 Intake & Output 07/15/17 07/16/17 07/17/17 06:59 06:59 06:59 Intake Total 9351 2008 9307 Balance 9351 2008 9307 Weight 64.2 kg 65.3 kg 64.7 kg General appearance: PRESENT: no acute distress, cooperative Head exam: PRESENT: atraumatic, normocephalic Eye exam: PRESENT: EOMI, PERRLA Ear exam: PRESENT: normal external ear exam Mouth exam: PRESENT: moist Neck exam: PRESENT: full ROM. ABSENT: JVD, meningismus Respiratory exam: PRESENT: clear to auscultation maile. ABSENT: crackles, rhonchi Cardiovascular exam: PRESENT: RRR. ABSENT: diastolic murmur, systolic murmur Vascular exam: PRESENT: normal capillary refill GI/Abdominal exam: PRESENT: normal bowel sounds, soft. ABSENT: tenderness Neurological exam: PRESENT: alert, awake Psychiatric exam: PRESENT: anxious Results Laboratory Results: 07/14/17 06:14 07/14/17 16:00 07/13/17 07/13/17 07/13/17 00:40 06:15 12:13 Troponin I 0.111 0.129 0.061 07/13/17 07/14/17 19:43 01:41 Troponin I 0.059 0.048 Impressions: Chest X-Ray 07/12/17 21:33 IMPRESSION: NO ACUTE RADIOGRAPHIC FINDING IN THE CHEST. Assessment & Plan - Diagnosis (1) Sepsis with hypotension Plan: Due to urinary tract infection. Resolved (2) UTI (urinary tract infection) Qualifiers: Urinary tract infection type: site unspecified Hematuria presence: without hematuria Qualified Code(s): N39.0 - Urinary tract infection, site not specified Is this a current diagnosis for this admission?: Yes Plan: Due to Proteus mirabilis. Continue Ceftin and Flomax. (3) Elevated troponin I level Is this a current diagnosis for this admission?: Yes Plan: Due to myocardial demand ischemia in the setting of sepsis. (4) Decubitus ulcer of buttock, stage 2 Qualifiers: Laterality: right Qualified Code(s): L89.312 - Pressure ulcer of right buttock, stage 2 Plan: Stable. Will require further follow up as outpatient (5) Dementia Qualifiers: Dementia type: unspecified type Dementia behavioral disturbance: without behavioral disturbance Qualified Code(s): F03.90 - Unspecified dementia without behavioral disturbance Is this a current diagnosis for this admission?: Yes Plan: Stable (6) Anemia Qualifiers: Anemia type: unspecified type Qualified Code(s): D64.9 - Anemia, unspecified Is this a current diagnosis for this admission?: Yes Plan: Likely of chronic disease. Stable - Time Time Spent with patient: 15-24 minutes Medications reviewed and adjusted accordingly: Yes Anticipated discharge: SNF Within: within 24 hours - Inpatient Certification Based on my medical assessment, after consideration of the patient's comorbidities, presenting symptoms, or acuity I expect that the services needed warrant INPATIENT care.: Yes I certify that my determination is in accordance with my understanding of Medicare's requirements for reasonable and necessary INPATIENT services [42 CFR 412.3e].: Yes Medical Necessity: Other - Unable to transfer over the weekend. Discussed with management
[2017-07-18] MEDS ORDERED: COLLAGENASE CLOSTRIDIUM HIST. OINT 30 GM TOP PRN (03:06)
[2017-07-18] MEDS: NORMAL SALINE 1000 ML 1,000 ML IV PRN (03:50)
[2017-07-18] MEDS: HEPARIN SOD (PORCINE) 5,000 UNIT/ML 1 ML SYRINGE SUBCUT SCH ×2 (05:41→14:59)
[2017-07-18] MEDS: ASPIRIN 81 MG TABLET, ENT COATED PO SCH (09:07)
[2017-07-18] MEDS: CEFUROXIME 500 MG TABLET PO SCH ×2 (09:07→18:34)
--- NOTE | 2017-07-18 14:35 | PDOC DISCHARGE SUMMARY ---
General - Admit/Disc Date/PCP Admission Date/Primary Care Provider: 07/13/17 00:13 Discharge date: 07/18/2017 Discharge Date: 07/18/17 - Discharge Diagnosis (2) UTI (urinary tract infection) Is this a current diagnosis for this admission?: Yes (3) Elevated troponin I level Is this a current diagnosis for this admission?: Yes (5) Dementia Is this a current diagnosis for this admission?: Yes (6) Anemia Is this a current diagnosis for this admission?: Yes - Additional Information Resuscitation Status: Full Code Home Medications: Acetaminophen [Tylenol 325 mg Tablet] 650 mg PO Q4HP PRN 07/13/17 Aspirin [Aspirin 81 mg Chewable Tablet] 81 mg PO DAILY 07/13/17 Atorvastatin Calcium [Lipitor 20 mg Tablet] 20 mg PO DAILY 07/13/17 Dextran 70/Hypromellose [Artificial Tears Drops] 1 drop OU Q4HP PRN 07/13/17 Docusate Sodium [Colace 100 mg Capsule] 100 mg PO Q12 07/13/17 Escitalopram Oxalate [Lexapro] 20 mg PO QHS 07/13/17 Furosemide [Lasix 40 mg Tablet] 40 mg PO Q6AM 07/13/17 Lisinopril [Prinivil 5 mg Tablet] 5 mg PO DAILY 07/13/17 Loperamide HCl [Imodium A-D] 2 mg PO .SEE COMMENTS PRN 07/13/17 Lorazepam [Ativan 0.5 mg Tablet] 0.5 mg PO Q12HP PRN 07/13/17 Metolazone 5 mg PO DAILY 07/13/17 [place]-3 Fatty Acids/Fish Oil [Fish Oil 1,000 mg Capsule] 1,000 mg PO Q8 Polyvinyl Alcohol [Liquitears 1.4% Ophth Soln 15 ml] 1 drop OU Q4HP PRN Risperidone 1 mg PO Q12 07/13/17 Collagenase Clostridium Hist. [Santyl Ointment 30 gm] 1 applic TOP PRN PRN tube 07/18/17 History of Present Illness History of Present Illness: BENNETT PATTON is a 72 year old maleWas transferred from a local facility after was found unresponsive while sitting on his chair. During the course of evaluation in the emergency room patient was found to be febrile and hypotensive. Patient was admitted under the hospitalist service for the treatment of sepsis secondary to urinary tract infection. Also on admission it was noted in the left buttock decubiti ulcer. Hospital Course Hospital Course: Patient responded to intravenous fluid and antibiotics. Troponin was mildly elevated which was deemed to be due to myocardial demand ischemia in the setting of sepsis. Urine culture grew higher than 100,000 colonies of Proteus mirabilis which was sensitive to Rocephin. Patient was then transitioned to Ceftin until the day of discharge. Local care was provided with Santyl ointment to decubiti ulcer. On the overall hospitalization was uneventful and patient was discharged under stable condition Physical Exam Vital Signs: Temp Pulse Resp BP Pulse Ox 97.9 F 75 18 141/56 H 98 07/18/17 12:38 07/18/17 12:38 07/18/17 12:38 07/18/17 12:38 07/18/17 12:38 Intake & Output 07/17/17 07/18/17 07/19/17 06:59 06:59 06:59 Intake Total 9307 2694 Balance 9307 2694 Weight 64.7 kg 67.3 kg General appearance: PRESENT: no acute distress, cooperative, well-developed, well-nourished Head exam: PRESENT: atraumatic, normocephalic Eye exam: PRESENT: EOMI, PERRLA Ear exam: PRESENT: normal external ear exam, TM's normal bilaterally Mouth exam: PRESENT: moist, neck supple Neck exam: PRESENT: full ROM. ABSENT: JVD, meningismus, tenderness Respiratory exam: PRESENT: chest wall tenderness Cardiovascular exam: PRESENT: RRR. ABSENT: diastolic murmur, systolic murmur Vascular exam: PRESENT: normal capillary refill GI/Abdominal exam: PRESENT: normal bowel sounds, soft. ABSENT: distended, tenderness Extremities exam: ABSENT: joint swelling, pedal edema Musculoskeletal exam: PRESENT: full ROM Neurological exam: PRESENT: alert, awake Psychiatric exam: PRESENT: agitated Results Laboratory Results: 07/14/17 06:14 07/14/17 16:00 07/13/17 07/13/17 07/13/17 00:40 06:15 12:13 Troponin I 0.111 0.129 0.061 07/13/17 07/14/17 19:43 01:41 Troponin I 0.059 0.048 Impressions: Chest X-Ray 07/12/17 21:33 IMPRESSION: NO ACUTE RADIOGRAPHIC FINDING IN THE CHEST.
[2017-07-18 18:08] VITALS: BP 142/64
== END 2017-07-18 18:50 | DRG 871 ==
LOC: ER 20:17 → EH 07-13 00:13 → 3S 07-13 16:47
PROVIDERS: ADMIT Family Medicine; ATTEND Family Medicine
DX: A41.9 Sepsis, unspecified organism (principal); G93.41 Metabolic encephalopathy; L89.153 Pressure ulcer of sacral region, stage 3; N39.0 Urinary tract infection, site not specified; L89.312 Pressure ulcer of right buttock, stage 2; B96.4 Proteus (mirabilis) (morganii) as the cause of diseases classified elsewhere; D64.9 Anemia, unspecified; E87.6 Hypokalemia; R74.8 Abnormal levels of other serum enzymes; I11.0 Hypertensive heart disease with heart failure; I50.9 Heart failure, unspecified; Z74.01 Bed confinement status; F03.90 Unspecified dementia, unspecified severity, without behavioral disturbance, psychotic disturbance, mood disturbance, and anxiety; Z82.49 Family history of ischemic heart disease and other diseases of the circulatory system; Z79.899 Other long term (current) drug therapy; Z86.73 Personal history of transient ischemic attack (TIA), and cerebral infarction without residual deficits
CPT/HCPCS: 36415; 51701; 71010; 80048; 80053; 80307; 81001; 82550; 82553; 82803; 83605; 83735; 84132; 84443; 84484; 85025; 87040; 87086; 87088; 87186; 93005; 93010; 96361; 96374; 99285; G8996-GN; G8997-GN; G8998-GN; J0696; J1644; J3475; J3480; J3490; J7030

== ENCOUNTER 2017-08-01 12:30 | Inpatient (IN) | payer MEDICARE, MEDICAID ==
[2017-08-01 13:20] LABS: ABSOLUTE BASOPHILS # (AUTO) 0.1 10^3/uL (0.0-0.2); ABSOLUTE LYMPHOCYTES (AUTO) 1.8 10^3/uL (0.5-4.7); ABSOLUTE MONOCYTES (AUTO) 0.3 10^3/uL (0.1-1.4); BASOPHILS % (AUTO) 0.9 % (0-2); EOSINOPHILS % (AUTO) 0.3 % (0-6); HEMATOCRIT 33.8 % (37.9-51.0); HEMOGLOBIN 11.3 g/dL (13.5-17.0); HGB HCT DIFFERENCE 0.1; LYMPHOCYTES % (AUTO) 28.7 % (13-45); MEAN CORPUSCULAR HEMOGLOBIN 29.5 pg (27.0-33.4); MEAN CORPUSCULAR HGB CONC 33.5 g/dL (32.0-36.0); MEAN CORPUSCULAR VOLUME 88 fl (80-97); MONOCYTES % (AUTO) 5.3 % (3-13); RED BLOOD COUNT 3.84 10^6/uL (4.35-5.55); RED CELL DISTRIBUTION WIDTH 15.5 % (11.5-14.0); SEGMENTED NEUTROPHILS % (AUTO) 64.8 % (42-78); WHITE BLOOD COUNT 6.1 10^3/uL (4.0-10.5)
[2017-08-01 13:23] LABS: APPEARANCE,URINE SLIGHTLY-CLOUDY; BILIRUBIN,URINE NEGATIVE (NEGATIVE); GLUCOSE, URINE NEGATIVE (NEGATIVE); KETONES,URINE NEGATIVE (NEGATIVE); LEUKOCYTE ESTERASE,URINE LARGE (NEGATIVE); NITRITE,URINE NEGATIVE (NEGATIVE); PROTEIN,URINE NEGATIVE (NEGATIVE); UROBILINOGEN,URINE NEGATIVE mg/dL (<2.0)
[2017-08-01 13:25] LABS: VENOUS BLOOD BASE EXCESS 6.9 mmol/L; VENOUS BLOOD HCO3 32.7 mmol/L (20-32); VENOUS BLOOD PCO2 54.3 mmHg (35-63); VENOUS BLOOD PH 7.4 (7.30-7.42)
[2017-08-01] MEDS ORDERED: NORMAL SALINE 1000 ML 1,000 ML IV PRN (13:42)
[2017-08-01] MEDS ORDERED: CEFTRIAXONE 1 GM/D5W RTU 1 GM/50 ML RTUPB IV ONE (13:47)
--- NOTE | 2017-08-01 14:03 | RADIOLOGY REPORT (SQ) ---
EXAM DESCRIPTION: CHEST SINGLE VIEW COMPLETED DATE/TIME: 08/01/2017 1:14 pm REASON FOR STUDY: AMS COMPARISON: 07/12/2017 EXAM PARAMETERS: NUMBER OF VIEWS: One view. TECHNIQUE: Single frontal radiographic view of the chest acquired. RADIATION DOSE: NA LIMITATIONS: None. FINDINGS: LUNGS AND PLEURA: No opacities, masses or pneumothorax. No pleural effusion. MEDIASTINUM AND HILAR STRUCTURES: No masses. Contour normal. HEART AND VASCULAR STRUCTURES: Heart normal in size. Normal vasculature. BONES: No acute findings. HARDWARE: None in the chest. OTHER: No other significant finding. IMPRESSION: NO ACUTE RADIOGRAPHIC FINDING IN THE CHEST. TECHNICAL DOCUMENTATION: JOB ID: [id number] [employer]- All Rights Reserved
--- NOTE | 2017-08-01 14:18 | ER Document Report ---
ED General - General Chief Complaint: Altered Mental Status Stated Complaint: SEPSIS Time Seen by Provider: 08/01/17 12:54 Notes: Patient is a 72-year-old male who presents to the emergency department with a chief complaint of altered mental status and concern for recurrent UTI. Patient presents from a [facility] facility today. Has been in and out of this hospital for the past couple of months with a urinary tract infection most recently discharged on July 13. Vitals sign [employer] was hypotensive but responded well to 1L IVF. Patient demented and not able to provide history Review of the chart shows d/c on 07/13 after iv course of rocephin and ceftin. culture grew proteus mirabilis TRAVEL OUTSIDE OF THE [place] IN LAST 30 DAYS: No - Related Data Allergies/Adverse Reactions: No Known Allergies Allergy (Unverified 04/21/12 04:40) Home Medications: Current Home Medications Acetaminophen [Tylenol 325 mg Tablet] 650 mg PO Q4HP PRN 08/01/17 [History] Aspirin [Aspirin 81 mg Chewable Tablet] 81 mg PO DAILY 08/01/17 [History] Atorvastatin Calcium [Lipitor 20 mg Tablet] 20 mg PO DAILY 08/01/17 [History] Docusate Sodium [Colace 100 mg Capsule] 100 mg PO BID 08/01/17 [History] Escitalopram Oxalate [Lexapro] 20 mg PO QHS 08/01/17 [History] Furosemide [Lasix 40 mg Tablet] 40 mg PO QAM 08/01/17 [History] Lisinopril [Prinivil 5 mg Tablet] 5 mg PO DAILY 08/01/17 [History] Loperamide HCl [Imodium A-D] 4 mg PO ASDIR PRN 08/01/17 [History] Lorazepam [Ativan 0.5 mg Tablet] 0.5 mg PO Q12HP PRN 08/01/17 [History] Metolazone [Zaroxolyn 5 Mg Tablet] 5 mg PO DAILY 08/01/17 [History] [place]-3/Dha/Epa/Fish Oil [Fish Oil 1,000 mg Softgel] 1,000 mg PO Q8 08/01/17 [ History] Polyvinyl Alcohol [Artificial Tears] 1 drop OP Q4HP PRN 08/01/17 [History] Risperidone [Risperdal 1 mg Tablet] 1 mg PO Q12 08/01/17 [History] Past Medical History - Social History Smoking Status: Unknown if Ever Smoked Family History: CAD Patient has suicidal ideation: No Patient has homicidal ideation: No - Past Medical History Cardiac Medical History: Reports: Hx Congestive Heart Failure, Hx Hypercholesterolemia, Hx Hypertension Pulmonary Medical History: Denies: Hx Tuberculosis Neurological Medical History: Reports: Hx Cerebrovascular Accident Renal/ Medical History: Denies: Hx Peritoneal Dialysis GI Medical History: Reports: Hx Ulcer Psychiatric Medical History: Reports: Hx Dementia Past Surgical History: Denies: Hx Pacemaker - Immunizations Hx Diphtheria, Pertussis, Tetanus Vaccination: Yes Review of Systems - Review of Systems -: Yes ROS unobtainable due to patient's medical condition Physical Exam - Vital signs Vitals: Temp Resp Pulse Ox 98.1 F 12 98 08/01/17 13:17 08/01/17 13:17 08/01/17 13:17 - Notes Notes: PHYSICAL EXAM GENERAL: Alert, responds to name, cannot follow instructions HEAD: Normocephalic, atraumatic. EYES: Pupils equal, round, and reactive to light. Extraocular movements intact. ENT: Oral mucosa moist, tongue midline. NECK: Full range of motion. Supple. Trachea midline. LUNGS: Clear to auscultation bilaterally, no wheezes, rales, or rhonchi. No respiratory distress. HEART: Regular rate and rhythm. No murmurs, gallops, or rubs. ABDOMEN: Soft, nondistended, nontender. No guarding, rebound, or rigidity.. Bowel sounds present in all 4 quadrants. EXTREMITIES: Moves all 4 extremities spontaneously. No edema, radial and dorsalis pedis pulses 2/4 bilaterally. No cyanosis. NEUROLOGICAL: Alert and responds to name, not speaking but making eye contact and smiling SKIN: Warm, dry, normal turgor. No rashes or lesions noted. Course - Re-evaluation Re-evalutation: 08/01/17 14:15 Patient is a 72-year-old male who is hemodynamically stable, no acute distress and afebrile. Presentation is concerning for acute dehydration with associated urinary tract infection. Patient at this time is not meeting sepsis criteria given that he is not tachycardic not currently hypotensive, no leukocytosis, afebrile, normal respiratory rate. Lactic was 1.1. Patient did receive Rocephin in the emergency department as well as IV fluids. Chemistry does show evidence of acute renal failure likely due to dehydration and urinary tract infection. Patient has been accepted to [facility] under Dr. Arriaza. - Vital Signs Vital signs: Temp Pulse Resp BP Pulse Ox 98.5 F 18 132/60 H 95 08/01/17 18:16 08/01/17 18:16 08/01/17 18:16 08/01/17 18:16 - Laboratory Result Diagrams: 08/01/17 12:55 08/01/17 14:12 Laboratory results interpreted by me: 08/01/17 08/01/17 08/01/17 12:52 12:55 12:55 RBC 3.84 L Hgb 11.3 L Hct 33.8 L RDW 15.5 H VBG HCO3 32.7 H Carbon Dioxide BUN Creatinine Est GFR ( Amer) Est GFR (Non-Af Amer) Urine Blood SMALL H Ur Leukocyte Esterase LARGE H 08/01/17 14:12 RBC Hgb Hct RDW VBG HCO3 Carbon Dioxide 33 H BUN 52 H Creatinine 1.49 H Est GFR ( Amer) 56 L Est GFR (Non-Af Amer) 46 L Urine Blood Ur Leukocyte Esterase - EKG Interpretation by Me EKG shows normal: Sinus rhythm Rate: Normal Rhythm: NSR When compared to previous EKG there are: No significant change Discharge - Discharge Clinical Impression: Altered mental status, Hypotension Dementia Qualifiers: Dementia type: unspecified type UTI (urinary tract infection) Qualifiers: Urinary tract infection type: acute cystitis Condition: Stable Disposition: ADMITTED INPATIENT Admitting Provider: Simran Gutierrez Unit Admitted: [facility]
[2017-08-01 14:45] LABS: ALANINE AMINOTRANSFERASE 31 U/L (21-72); ALBUMIN 3.8 g/dL (3.5-5.0); ALKALINE PHOSPHATASE 72 U/L (38-126); ANION GAP 11 (5-19); ASPARTATE AMINO TRANSFERASE 23 U/L (17-59); BILIRUBIN,DIRECT 0.2 mg/dL (0.0-0.4); BILIRUBIN,TOTAL 0.3 mg/dL (0.2-1.3); BLOOD UREA NITROGEN 52 mg/dL (7-20); CALCIUM 9.4 mg/dL (8.4-10.2); CARBON DIOXIDE 33 mmol/L (22-30); CHLORIDE 98 mmol/L (98-107); CREATININE RESULT 1.49 mg/dL (0.52-1.25); GLUCOSE 96 mg/dL (75-110); POTASSIUM 4.1 mmol/L (3.6-5.0); SODIUM 142.2 mmol/L (137-145); TOTAL PROTEIN 6.6 g/dL (6.3-8.2)
[2017-08-01] MEDS ORDERED: IPRATROPIUM/ALBUTEROL 0.5-2.5 MG/3 ML AMPUL NEB PRN (15:51)
[2017-08-01] MEDS ORDERED: PIPERACILLIN SODIUM/TAZOBACTAM 3.375 GM in NORMAL SALINE 100 ML IV ONE (17:00)
--- NOTE | 2017-08-01 18:22 | PDOC H&P ---
History of Present Illness History of Present Illness: BENNETT PATTON is a 72 year old white male with a past medical history significant for congestive heart failure, dyslipidemia and hypertension who presents to the service with acute mental status changes. The patient resides in a [facility] facility and was sent over from there. As per my conversation with the emergency department, the patient was recently here and discharged in June for sepsis with urinary tract infection. He was treated for Proteus mirabilis urinary tract infection. He was treated with Rocephin and then transitioned to Ceftin up until the day of discharge. He was sent over here because of mental status changes. Blood pressure when he arrived was in the 80s. He received a liter bolus and that brought his pressure up to 92/ 54. Repeat blood pressure now shows that he is at 106/52. His pulse is in the 50s. Patient is satting on room air. Urinalysis was done and does show leukocyte esterase. It is noted that his creatinine is also elevated from baseline and is now at 1.4. The patient has no history of a chronic indwelling Hernandez. Unfortunately at the bedside the patient does not communicate. History cannot be obtained from him. Past Medical History Past Medical History: The patient cannot supply his own medical history. Medical history is taken from chart review. Cardiac Medical History: Reports: Congestive Heart Failure, Hyperlipidema, Hypertension Psychiatric Medical History: Reports: Dementia Hematology: Reports: Anemia Past Surgical History Past Surgical History: Past surgical history is unobtainable as the patient cannot give his own medical history. A review of his most recent admission in June, there is no pertinent past medical history. This has not been verified. Social History Smoking Status: Unknown if Ever Smoked Frequency of Alcohol Use: None Hx Recreational Drug Use: No Hx Prescription Drug Abuse: No - Advance Directive Resuscitation Status: Full Code - Patient cannot speak for himself. There is no DNR on file and I note during his last visit here he was full code Family History Family History: CAD Family History: Family history is unobtainable as the patient is nonverbal. Any information collected is based on chart review. Parental Family History Reviewed: No Children Family History Reviewed: No Sibling(s) Family History Reviewed.: No Medication/Allergy Home Medications: Acetaminophen [Tylenol 325 mg Tablet] 650 mg PO Q4HP PRN 08/01/17 Aspirin [Aspirin 81 mg Chewable Tablet] 81 mg PO DAILY 08/01/17 Atorvastatin Calcium [Lipitor 20 mg Tablet] 20 mg PO DAILY 08/01/17 Docusate Sodium [Colace 100 mg Capsule] 100 mg PO BID 08/01/17 Escitalopram Oxalate [Lexapro] 20 mg PO QHS 08/01/17 Furosemide [Lasix 40 mg Tablet] 40 mg PO QAM 08/01/17 Lisinopril [Prinivil 5 mg Tablet] 5 mg PO DAILY 08/01/17 Loperamide HCl [Imodium A-D] 4 mg PO ASDIR PRN 08/01/17 Lorazepam [Ativan 0.5 mg Tablet] 0.5 mg PO Q12HP PRN 08/01/17 Metolazone [Zaroxolyn 5 Mg Tablet] 5 mg PO DAILY 08/01/17 [place]-3/Dha/Epa/Fish Oil [Fish Oil 1,000 mg Softgel] 1,000 mg PO Q8 08/01/17 Polyvinyl Alcohol [Artificial Tears] 1 drop OP Q4HP PRN 08/01/17 Risperidone [Risperdal 1 mg Tablet] 1 mg PO Q12 08/01/17 Allergies/Adverse Reactions: No Known Allergies Allergy (Unverified 04/21/12 04:40) Review of Systems ROS unobtainable: Due to mental status Physical Exam Vital Signs: Temp Pulse Resp BP Pulse Ox 97.7 F 14 112/51 L 99 08/01/17 15:01 08/01/17 15:01 08/01/17 15:01 08/01/17 15:01 GENERAL: This is a well-developed and nourished appearing elderly frail white male resting in bed in position in no acute distress. HEENT: Normocephalic atraumatic. Trachea is midline. sclera are anicteric. Patient will not open his mouth for me. In fact he closes his lips titer. I can evaluate if his mucous membranes are dry or not. HEART: Regular rate and rhythm. No murmurs, rubs or gallops. LUNGS: Shallow breaths. Patient does not cooperate with a lung exam and deep breathe for me. From what I can tell he sounds relatively clear. He has equal rise and fall the chest. ABDOMEN: Soft, nontender, nondistended with hypoactive bowel sounds EXTREMETIES: No clubbing, cyanosis or edema. 2+ posterior tibialis pulses bilaterally. Strength could not be appropriately assessed due to lack of cooperation. Upper extremities seem to have contractures. The patient is balled up in a position but occasionally will straighten out a leg every now and then. NEURO: Patient is awake. He does not answer questions and is completely nonverbal. Full neurologic assessment cannot be performed. Results Laboratory Results: 08/01/17 12:55 08/01/17 14:12 08/01/17 08/01/17 08/01/17 12:52 12:55 12:55 WBC 6.1 RBC 3.84 L Hgb 11.3 L Hct 33.8 L MCV 88 MCH 29.5 MCHC 33.5 RDW 15.5 H Plt Count 210 Seg Neutrophils % 64.8 Lymphocytes % 28.7 Monocytes % 5.3 Eosinophils % 0.3 Basophils % 0.9 Absolute Neutrophils 4.0 Absolute Lymphocytes 1.8 Absolute Monocytes 0.3 Absolute Eosinophils 0.0 Absolute Basophils 0.1 VBG pH VBG pCO2 VBG HCO3 VBG Base Excess Sodium Cancelled Potassium Cancelled Chloride Cancelled Carbon Dioxide Cancelled Anion Gap Cancelled BUN Cancelled Creatinine Cancelled Est GFR ( Amer) Cancelled Est GFR (Non-Af Amer) Cancelled Glucose Cancelled Lactic Acid Calcium Cancelled Total Bilirubin Cancelled AST Cancelled ALT Cancelled Alkaline Phosphatase Cancelled Total Protein Cancelled Albumin Cancelled Urine Color YELLOW Urine Appearance SLIGHTLY-CLOUDY Urine pH 7.0 Ur Specific [place] 1.010 Urine Protein NEGATIVE Urine Glucose (UA) NEGATIVE Urine Ketones NEGATIVE Urine Blood SMALL H Urine Nitrite NEGATIVE Ur Leukocyte Esterase LARGE H Urine WBC (Auto) 44 Urine RBC (Auto) 15 08/01/17 08/01/17 08/01/17 12:55 12:55 14:12 WBC RBC Hgb Hct MCV MCH MCHC RDW Plt Count Seg Neutrophils % Lymphocytes % Monocytes % Eosinophils % Basophils % Absolute Neutrophils Absolute Lymphocytes Absolute Monocytes Absolute Eosinophils Absolute Basophils VBG pH 7.40 VBG pCO2 54.3 VBG HCO3 32.7 H VBG Base Excess 6.9 Sodium 142.2 Potassium 4.1 Chloride 98 Carbon Dioxide 33 H Anion Gap 11 BUN 52 H Creatinine 1.49 H Est GFR ( Amer) 56 L Est GFR (Non-Af Amer) 46 L Glucose 96 Lactic Acid 1.1 Calcium 9.4 Total Bilirubin 0.3 AST 23 ALT 31 Alkaline Phosphatase 72 Total Protein 6.6 Albumin 3.8 Urine Color Urine Appearance Urine pH Ur Specific [place] Urine Protein Urine Glucose (UA) Urine Ketones Urine Blood Urine Nitrite Ur Leukocyte Esterase Urine WBC (Auto) Urine RBC (Auto) Impressions: Chest X-Ray 08/01/17 12:59 IMPRESSION: NO ACUTE RADIOGRAPHIC FINDING IN THE CHEST. Assessment & Plan - Diagnosis (1) Hypotension Is this a current diagnosis for this admission?: Yes Plan: Likely early sepsis with hypotension. The patient's was noted to be tachypneic with a rise of creatinine from baseline. On his last visit his creatinine was 0.7 and now it is 1.4. He has altered mental status from baseline, hypotension requiring boluses as well an unknown source. (2) Altered mental status Is this a current diagnosis for this admission?: Yes Plan: Patient is likely confused secondary to underlying urinary tract infection. He has underlying dementia. As per my conversation with the ER, the nursing facility seem to feel that he was not as responsive as he usually is. This would represent a change from his baseline. There is no family at bedside for me to verify this. (3) Dementia Qualifiers: Dementia type: unspecified type Is this a current diagnosis for this admission?: Yes (4) UTI (urinary tract infection) Qualifiers: Urinary tract infection type: acute cystitis Is this a current diagnosis for this admission?: Yes Plan: The patient is known to have recurrent urinary tract infections. Based on previous cultures,, the patient has been started on Zosyn. In the past previous organisms have been resistant to Rocephin. (5) Decubitus ulcer Qualifiers: Pressure ulcer location: sacral region Pressure ulcer stage: stage 3 Qualified Code(s): L89.153 - Pressure ulcer of sacral region, stage 3 Is this a current diagnosis for this admission?: Yes Plan: Stage I right gluteal fold decubitus ulcer. (6) Essential hypertension Is this a current diagnosis for this admission?: Yes Plan: Hold all antihypertensive secondary to hypotension. (7) Acute renal failure Is this a current diagnosis for this admission?: Yes Plan: Prerenal azotemia likely secondary to underlying sepsis from urinary tract infection. Continue IV fluids and monitor. Avoid nephrotoxic agents. (8) Congestive heart failure Is this a current diagnosis for this admission?: Yes Plan: Possible systolic heart failure. Unclear from previous medical records what kind of heart failure the patient has. In review of his medications he is on Lasix and other medications that would indicate treatment of heart failure. The patient will be receiving resuscitative fluids. We will need to proceed with caution. All antihypertensives will be held. Patient's last recorded echo in this facility was in 2011 and there is no written report. (9) Dyslipidemia Is this a current diagnosis for this admission?: Yes Plan: Continue statin. - Time Time Spent: 30 to 50 Minutes - Inpatient Certification Medical Necessity: Need Close Monitoring Due to Risk of Patient Decompensation
[2017-08-01] MEDS ORDERED: POLYVINYL ALCOHOL 1.4% OPH SOLN 15 ML OP PRN (18:23)
[2017-08-01] MEDS ORDERED: ACETAMINOPHEN 325 MG TABLET PO PRN (18:23)
[2017-08-01] MEDS: NORMAL SALINE 1000 ML 1,000 ML IV PRN (19:14)
--- NOTE | 2017-08-01 19:43 | EKG REPORT ---
SEVERITY:- BORDERLINE ECG - SINUS RHYTHM EARLY TRANSITION. : Confirmed by: Rafy Flores MD 01-Aug-2017 19:42:41
[2017-08-01] MEDS: HEPARIN SOD (PORCINE) 5,000 UNIT/ML 1 ML SYRINGE SUBCUT SCH (22:26)
[2017-08-01] MEDS: LORAZEPAM 0.5 MG TABLET PO PRN (22:26)
[2017-08-01] MEDS: RISPERIDONE 1 MG TABLET PO SCH (22:26)
[2017-08-01] MEDS: PIPERACILLIN SODIUM/TAZOBACTAM 3.375 GM in NORMAL SALINE 100 ML IV SCH (23:35)
[2017-08-02 04:21] LABS: ABSOLUTE BASOPHILS # (AUTO) 0.1 10^3/uL (0.0-0.2); ABSOLUTE EOSINOPHILS # (AUTO) 0.1 10^3/uL (0.0-0.6); ABSOLUTE LYMPHOCYTES (AUTO) 2.2 10^3/uL (0.5-4.7); ABSOLUTE MONOCYTES (AUTO) 0.5 10^3/uL (0.1-1.4); ABSOLUTE NEUT (AUTO) 4.3 10^3/uL (1.7-8.2); BASOPHILS % (AUTO) 1.2 % (0-2); EOSINOPHILS % (AUTO) 0.9 % (0-6); HEMATOCRIT 30.6 % (37.9-51.0); HEMOGLOBIN 10.6 g/dL (13.5-17.0); HGB HCT DIFFERENCE 1.2; LYMPHOCYTES % (AUTO) 31.2 % (13-45); MEAN CORPUSCULAR HEMOGLOBIN 29.9 pg (27.0-33.4); MEAN CORPUSCULAR HGB CONC 34.6 g/dL (32.0-36.0); MEAN CORPUSCULAR VOLUME 86 fl (80-97); MONOCYTES % (AUTO) 6.6 % (3-13); RED BLOOD COUNT 3.55 10^6/uL (4.35-5.55); RED CELL DISTRIBUTION WIDTH 15.3 % (11.5-14.0); SEGMENTED NEUTROPHILS % (AUTO) 60.1 % (42-78); WHITE BLOOD COUNT 7.1 10^3/uL (4.0-10.5)
[2017-08-02 04:43] LABS: ANION GAP 10 (5-19); BLOOD UREA NITROGEN 36 mg/dL (7-20); CALCIUM 8.8 mg/dL (8.4-10.2); CARBON DIOXIDE 31 mmol/L (22-30); CHLORIDE 100 mmol/L (98-107); CREATININE RESULT 0.91 mg/dL (0.52-1.25); GLUCOSE 81 mg/dL (75-110); MAGNESIUM 1.6 mg/dL (1.6-2.3); POTASSIUM 3.3 mmol/L (3.6-5.0); SODIUM 140.6 mmol/L (137-145)
[2017-08-02] MEDS: PIPERACILLIN SODIUM/TAZOBACTAM 3.375 GM in NORMAL SALINE 100 ML IV SCH ×4 (05:48→23:52)
[2017-08-02] MEDS: HEPARIN SOD (PORCINE) 5,000 UNIT/ML 1 ML SYRINGE SUBCUT SCH ×3 (05:48→22:18)
[2017-08-02] MEDS ORDERED: POTASSI CL 20 MEQ/50 ML RIDER 20 MEQ/50 ML RTUPB IV ONE (07:50)
[2017-08-02] MEDS: DOCUSATE SODIUM 100 MG CAPSULE PO SCH ×2 (09:01→17:49)
[2017-08-02] MEDS: RISPERIDONE 1 MG TABLET PO SCH ×2 (09:02→22:19)
[2017-08-02] MEDS: ASPIRIN 81 MG TABLET, CHEWABLE PO SCH (09:02)
--- NOTE | 2017-08-02 09:17 | PDOC PROGRESS REPORT ---
Subjective Progress Note for:: 08/02/17 Subjective:: This is a follow-up visit for sepsis. I am so pleased to see that the patient is awake this morning and enjoying breakfast. He is able to say good morning to me and to tell me that he is in no pain. He is also able to recall that he had eggs for breakfast. According to the nursing staff he was eating well prior to my arrival. He did need to be fed but he was able to hold his home orange juice. They intend on helping him finish his breakfast after my interview. Reason For Visit: SEPSIS DUE TO UTI Physical Exam Vital Signs: Temp Pulse Resp BP Pulse Ox 97.7 F 55 L 18 93/29 L 99 08/02/17 07:33 08/02/17 07:33 08/02/17 07:33 08/02/17 07:33 08/02/17 07:33 Intake & Output 08/01/17 08/02/17 08/03/17 06:59 06:59 06:59 Intake Total 1443 Output Total 1500 Balance -57 Weight 57.9 kg GENERAL: This is a well-developed and nourished appearing elderly frail white male resting in bed in bed no acute distress, awake and smiling. HEART: Regular rate and rhythm. No murmurs, rubs or gallops. LUNGS: Shallow breaths. Patient does not cooperate with a lung exam and deep breathe for me. He has equal rise and fall the chest. ABDOMEN: Soft, nontender, nondistended with hypoactive bowel sounds EXTREMETIES: No clubbing, cyanosis or edema. 2+ posterior tibialis pulses bilaterally. NEURO: Patient is awake and alert. He answers simple questions appropriately. such as what he had for breakfast and if he's in pain. He is not oriented. Results Laboratory Results: 08/02/17 03:53 08/02/17 03:53 08/01/17 08/02/17 08/02/17 18:43 03:53 03:53 WBC 7.1 RBC 3.55 L Hgb 10.6 L Hct 30.6 L MCV 86 MCH 29.9 MCHC 34.6 RDW 15.3 H Plt Count 187 Seg Neutrophils % 60.1 Lymphocytes % 31.2 Monocytes % 6.6 Eosinophils % 0.9 Basophils % 1.2 Absolute Neutrophils 4.3 Absolute Lymphocytes 2.2 Absolute Monocytes 0.5 Absolute Eosinophils 0.1 Absolute Basophils 0.1 Sodium 140.6 Potassium 3.3 L Chloride 100 Carbon Dioxide 31 H Anion Gap 10 BUN 36 H Creatinine 0.91 Est GFR ( Amer) > 60 Est GFR (Non-Af Amer) > 60 Glucose 81 Lactic Acid 1.4 Calcium 8.8 Magnesium 1.6 Impressions: Chest X-Ray 08/01/17 12:59 IMPRESSION: NO ACUTE RADIOGRAPHIC FINDING IN THE CHEST. Assessment & Plan - Diagnosis (1) Hypotension Is this a current diagnosis for this admission?: Yes Plan: sepsis with hypotension. The patient's was noted to be tachypneic with a rise of creatinine from baseline. On his last visit his creatinine was 0.7 and was 1.4 on this admission. He has altered mental status from baseline, hypotension requiring boluses as well a known source. The patient is now also bacteremic. Continue current antibiotics. The patient is much more awake and vibrant today. I believe we are on the right track. Await culture identification and susceptibilities. (2) Altered mental status Is this a current diagnosis for this admission?: Yes Plan: Patient is likely confused secondary to underlying urinary tract infection. He has underlying dementia. The patient is much more vibrant today. He is eating and talking. His mental state on admission represents a declination from baseline. Underlying sepsis is the likely cause for the patient's acute metabolic encephalopathy. This now seems to be resolved. (3) Dementia Qualifiers: Dementia type: unspecified type Is this a current diagnosis for this admission?: Yes (4) UTI (urinary tract infection) Qualifiers: Urinary tract infection type: acute cystitis Is this a current diagnosis for this admission?: Yes Plan: The patient is known to have recurrent urinary tract infections. Based on previous cultures, the patient has been started on Zosyn. In the past previous organisms have been resistant to Rocephin, particularly viridans group strep (5) Decubitus ulcer Qualifiers: Pressure ulcer location: sacral region Pressure ulcer stage: stage 3 Qualified Code(s): L89.153 - Pressure ulcer of sacral region, stage 3 Is this a current diagnosis for this admission?: Yes Plan: Stage I right gluteal fold decubitus ulcer. On the patient's last visit this was documented as stage II. It is healing nicely. (6) Essential hypertension Is this a current diagnosis for this admission?: Yes Plan: Hold all antihypertensive secondary to hypotension. (7) Acute renal failure Is this a current diagnosis for this admission?: Yes Plan: Prerenal azotemia likely secondary to underlying sepsis from urinary tract infection. Now resolved with IV fluids. (8) Congestive heart failure Is this a current diagnosis for this admission?: Yes Plan: Possible systolic heart failure. Unclear from previous medical records what kind of heart failure the patient has. In review of his medications he is on Lasix and other medications that would indicate treatment of heart failure. The patient will be receiving resuscitative fluids. We will need to proceed with caution. All antihypertensives will be held. Patient's last recorded echo in this facility was in 2011 and there is no written report. (9) Dyslipidemia Is this a current diagnosis for this admission?: Yes Plan: Continue statin. (10) Bacteremia Is this a current diagnosis for this admission?: Yes Plan: Continue Zosyn for now. Await identification and speciation. Since the patient is improved clinically, I am not going to add vancomycin at this time. - Time Time Spent with patient: 15-24 minutes Anticipated discharge: SNF Within: within 72 hours - Inpatient Certification Based on my medical assessment, after consideration of the patient's comorbidities, presenting symptoms, or acuity I expect that the services needed warrant INPATIENT care.: Yes Medical Necessity: Need Close Monitoring Due to Risk of Patient Decompensation, Need For IV Fluids, Need for IV Antibiotics
[2017-08-02] MEDS ORDERED: CEFTRIAXONE 1 GM/D5W RTU 1 GM/50 ML RTUPB IV SCH (10:00)
[2017-08-02] MEDS: NORMAL SALINE 1000 ML 1,000 ML IV PRN (11:11)
[2017-08-02] MEDS: ATORVASTATIN CALCIUM 20 MG TABLET PO SCH (22:18)
[2017-08-03] MEDS: LORAZEPAM 0.5 MG TABLET PO PRN (00:15)
[2017-08-03] MEDS: PIPERACILLIN SODIUM/TAZOBACTAM 3.375 GM in NORMAL SALINE 100 ML IV SCH (05:35)
[2017-08-03] MEDS: HEPARIN SOD (PORCINE) 5,000 UNIT/ML 1 ML SYRINGE SUBCUT SCH ×3 (05:35→21:52)
[2017-08-03] MEDS: NORMAL SALINE 1000 ML 1,000 ML IV PRN (08:15)
[2017-08-03] MEDS: DOCUSATE SODIUM 100 MG CAPSULE PO SCH ×2 (09:34→17:08)
[2017-08-03] MEDS: ASPIRIN 81 MG TABLET, CHEWABLE PO SCH (09:34)
[2017-08-03] MEDS: RISPERIDONE 1 MG TABLET PO SCH ×2 (09:34→21:51)
--- NOTE | 2017-08-03 10:37 | PDOC PROGRESS REPORT ---
Subjective Progress Note for:: 08/03/17 Subjective:: Summary per Dr. Arriaza H&P: "BENNETT PATTON is a 72 year old white male with a past medical history significant for congestive heart failure, dyslipidemia and hypertension who presents to the service with acute mental status changes. The patient resides in a long-term facility and was sent over from there. As per my conversation with the emergency department, the patient was recently here and discharged in June for sepsis with urinary tract infection. He was treated for Proteus mirabilis urinary tract infection. He was treated with Rocephin and then transitioned to Ceftin up until the day of discharge. He was sent over here because of mental status changes. Blood pressure when he arrived was in the 80s. He received a liter bolus and that brought his pressure up to 92/54. Repeat blood pressure now shows that he is at 106/52. His pulse is in the 50s. Patient is satting on room air. Urinalysis was done and does show leukocyte esterase. It is noted that his creatinine is also elevated from baseline and is now at 1.4. The patient has no history of a chronic indwelling Hernandez. Unfortunately at the bedside the patient does not communicate. History cannot be obtained from him." I inherited his care Tuesday and found him alert and interactive though largely nonverbal answering questions only with simple head shakes yes or no and not always consistently. He will occasionally smile and he will follow simple one-step commands. However this renders a review of systems and medical history unreliable. ROS: As above, unreliable due to patient's mental state. Reason For Visit: SEPSIS DUE TO UTI; acute encephalopathy Physical Exam Vital Signs: Temp Pulse Resp BP Pulse Ox 97.4 F 51 L 16 91/48 L 99 08/03/17 07:08 08/03/17 08:15 08/03/17 08:15 08/03/17 07:08 08/03/17 08:15 Intake & Output 08/02/17 08/03/17 08/04/17 06:59 06:59 06:59 Intake Total 1443 2015 Output Total 1500 1825 Balance -57 191 Weight 57.9 kg 62.8 kg General: Alert and cooperative as noted above; largely nonverbal and inconsistent in his responses. HEENT: Extraocular muscles are intact, there is no facial asymmetry, oral mucosa is moist, tongue protrusion is midline. Cardio regular rate and rhythm without obvious murmur or gallop. Respiratory: Coarse breath sounds bilaterally but no obvious adventitious sounds , no increased work of breathing or accessory muscle use. Abdomen: Soft, nontender, nondistended with good bowel sounds throughout. Extremities: Left upper extremity contracted, apparently this is chronic. He moves his lower extremities spontaneously will follow commands, good strength in his right hand. No edema. Good radial pulses 2+ and symmetric. Skin: Warm and dry. Neuro: Difficult to assess given his nonverbal state and inconsistent answers, however he does move 3 or 4 extremities as noted above and will follow simple 1 step commands. Deep tendon reflexes are 1+ and symmetric at the patella. Results Laboratory Results: 08/02/17 03:53 08/02/17 03:53 Assessment & Plan - Diagnosis (1) UTI (urinary tract infection) Qualifiers: Urinary tract infection type: acute cystitis Is this a current diagnosis for this admission?: Yes Plan: Improved. Due to a fluoroquinolone resistant Proteus mirabilis. Change antibiotics to Rocephin. (2) Acute renal failure Is this a current diagnosis for this admission?: Yes Plan: Likely prerenal due to decreased oral intake, possibly related to the urinary tract infection/cystitis, resolved with IV fluids and antibiotics. (3) Altered mental status Is this a current diagnosis for this admission?: Yes Plan: With the underlying dementia it is unclear what his baseline mental status however he seems to be making improvement since admission. He is at least now cooperative and interactive with staff. (4) Bacteremia Is this a current diagnosis for this admission?: Yes Plan: Gram-positive cocci, identification and susceptibility still pending. Repeat blood cultures pending. (5) Dementia Qualifiers: Dementia type: unspecified type Is this a current diagnosis for this admission?: Yes Plan: Unknown type, unknown severity; baseline unknown. (6) Hypotension Is this a current diagnosis for this admission?: Yes Plan: Unclear etiology possibly related to volume depletion at presentation and borderline electrolyte abnormalities. Continue IV fluids and replace potassium and magnesium. Continue to hold his usual diuretic therapy and antihypertensives. (7) Decubitus ulcer of buttock, stage 2 Qualifiers: Laterality: right Qualified Code(s): L89.312 - Pressure ulcer of right buttock, stage 2 Is this a current diagnosis for this admission?: Yes Plan: Present on admission. Continue offloading and topical care. - Time Time Spent with patient: 35 or more minutes Medications reviewed and adjusted accordingly: Yes - Plan Summary Plan Summary: Anticipate return to long-term facility once he came once hemodynamics and electrolytes stabilized.
[2017-08-03] MEDS ORDERED: MAGNESIUM SULFATE/D5W 1 GM/100 ML RTUPB IV ONE (11:30)
[2017-08-03] MEDS: POTASSIUM CHLORIDE 20 MEQ/15 ML UDCUP PO SCH ×2 (11:43→21:51)
[2017-08-03] MEDS ORDERED: INFLUENZA ADLT QUAD (36MOS+) 2017-18 VAC 0.5 ML SYR IM PRN (12:08)
[2017-08-03] MEDS: CEFTRIAXONE 1 GM/D5W RTU 1 GM/50 ML RTUPB IV SCH (13:05)
[2017-08-03] MEDS: ATORVASTATIN CALCIUM 20 MG TABLET PO SCH (21:51)
[2017-08-04] MEDS: NORMAL SALINE 1000 ML 1,000 ML IV PRN (01:23)
[2017-08-04 05:27] LABS: ANION GAP 11 (5-19); BLOOD UREA NITROGEN 11 mg/dL (7-20); CALCIUM 9.7 mg/dL (8.4-10.2); CARBON DIOXIDE 28 mmol/L (22-30); CHLORIDE 103 mmol/L (98-107); CREATININE RESULT 0.65 mg/dL (0.52-1.25); GLUCOSE 80 mg/dL (75-110); MAGNESIUM 1.8 mg/dL (1.6-2.3); POTASSIUM 4.1 mmol/L (3.6-5.0); SODIUM 141.6 mmol/L (137-145)
[2017-08-04] MEDS: HEPARIN SOD (PORCINE) 5,000 UNIT/ML 1 ML SYRINGE SUBCUT SCH ×3 (06:16→22:43)
[2017-08-04] MEDS: DOCUSATE SODIUM 100 MG CAPSULE PO SCH ×2 (10:03→17:01)
[2017-08-04] MEDS: POTASSIUM CHLORIDE 20 MEQ/15 ML UDCUP PO SCH ×2 (10:03→22:43)
[2017-08-04] MEDS: RISPERIDONE 1 MG TABLET PO SCH ×2 (10:03→22:43)
[2017-08-04] MEDS: ASPIRIN 81 MG TABLET, CHEWABLE PO SCH (10:03)
--- NOTE | 2017-08-04 10:22 | PDOC PROGRESS REPORT ---
Subjective Progress Note for:: 08/04/17 Subjective:: Summary per Dr. Arriaza H&P: "BENNETT PATTON is a 72 year old white male with a past medical history significant for congestive heart failure, dyslipidemia and hypertension who presents to the service with acute mental status changes. The patient resides in a group home facility and was sent over from there. As per my conversation with the emergency department, the patient was recently here and discharged in June for sepsis with urinary tract infection. He was treated for Proteus mirabilis urinary tract infection. He was treated with Rocephin and then transitioned to Ceftin up until the day of discharge. He was sent over here because of mental status changes. Blood pressure when he arrived was in the 80s. He received a liter bolus and that brought his pressure up to 92/54. Repeat blood pressure now shows that he is at 106/52. His pulse is in the 50s. Patient is satting on room air. Urinalysis was done and does show leukocyte esterase. It is noted that his creatinine is also elevated from baseline and is now at 1.4. The patient has no history of a chronic indwelling Hernandez. Unfortunately at the bedside the patient does not communicate. History cannot be obtained from him." I inherited his care Tuesday and found him alert and interactive though largely nonverbal answering questions only with simple head shakes yes or no and not always consistently. He will occasionally smile and he will follow simple one-step commands. No change in his condition , I suspect this is his baseline. However this renders a review of systems and medical history unreliable. Hernandez catheter remains in place. ROS: As above, unreliable due to patient's mental state. Reason For Visit: SEPSIS DUE TO UTI Physical Exam Vital Signs: Temp Pulse Resp BP Pulse Ox 97.6 F 53 L 18 114/57 L 100 08/04/17 07:12 08/04/17 07:12 08/04/17 07:12 08/04/17 07:12 08/04/17 07:12 Intake & Output 08/03/17 08/04/17 08/05/17 06:59 06:59 06:59 Intake Total 2916 2605 Output Total 6425 2575 Balance 1091 30 Weight 62.8 kg 61.4 kg General: Alert and cooperative, remains nonverbal but more consistent in his responses. HEENT: Extraocular muscles are intact, there is no facial asymmetry, oral mucosa is moist, tongue protrusion is midline. Cardio regular rate and rhythm without obvious murmur or gallop. Respiratory: Clear to auscultation bilaterally, no increased work of breathing or accessory muscle use. Abdomen: Soft, nontender, nondistended with good bowel sounds throughout. Hernandez catheter in place with clear yellow urine in bag Extremities: Left upper extremity contracted, apparently this is chronic. He moves his lower extremities spontaneously will follow commands, good strength in his right hand. No edema. Good radial pulses 2+ and symmetric. Skin: Warm and dry. Neuro: will follow simple 1 step commands. Deep tendon reflexes are 1+ and symmetric at the patella. Results Laboratory Results: 08/02/17 03:53 08/04/17 04:10 08/04/17 04:10 Sodium 141.6 Potassium 4.1 Chloride 103 Carbon Dioxide 28 Anion Gap 11 BUN 11 Creatinine 0.65 Est GFR ( Amer) > 60 Est GFR (Non-Af Amer) > 60 Glucose 80 Calcium 9.7 Magnesium 1.8 Assessment & Plan - Diagnosis (1) UTI (urinary tract infection) Qualifiers: Urinary tract infection type: acute cystitis Is this a current diagnosis for this admission?: Yes Plan: Improved. Due to a fluoroquinolone resistant Proteus mirabilis. Change antibiotics to Rocephin. Will need total 10 days for complicated UTI. (2) Acute renal failure Is this a current diagnosis for this admission?: Yes Plan: Resolved. Likely prerenal due to decreased oral intake, possibly related to the urinary tract infection/cystitis (3) Altered mental status Is this a current diagnosis for this admission?: Yes Plan: Probably back to baseline. with the underlying dementia it is unclear what his baseline mental status however he seems to be making improvement since admission. He is at least now cooperative and interactive with staff. (4) Bacteremia Is this a current diagnosis for this admission?: Yes Plan: Still waiting on follow-up culture results. (5) Dementia Qualifiers: Dementia type: unspecified type Is this a current diagnosis for this admission?: Yes (6) Hypotension Is this a current diagnosis for this admission?: Yes Plan: Mean arterial pressures never been an issue blood pressures are on the low side but seem to be stabilizing greater than 100/50 (7) Decubitus ulcer of buttock, stage 2 Qualifiers: Laterality: right Qualified Code(s): L89.312 - Pressure ulcer of right buttock, stage 2 Is this a current diagnosis for this admission?: Yes Plan: Present on admission. Continue offloading and topical care. - Time Time Spent with patient: 15-24 minutes Anticipated discharge: SNF Within: within 24 hours - Plan Summary Plan Summary: Just waiting on final culture results at this point to narrow the antibiotics hopefully to an oral regimen which point he can transition back to the group home facility once he came probably as early as tomorrow.
[2017-08-04] MEDS: CEFTRIAXONE 1 GM/D5W RTU 1 GM/50 ML RTUPB IV SCH (12:07)
[2017-08-04] MEDS ORDERED: IPRATROPIUM/ALBUTEROL 0.5-2.5 MG/3 ML AMPUL NEB PRN (13:00)
[2017-08-04] MEDS: ATORVASTATIN CALCIUM 20 MG TABLET PO SCH (22:43)
[2017-08-05] MEDS: HEPARIN SOD (PORCINE) 5,000 UNIT/ML 1 ML SYRINGE SUBCUT SCH ×2 (05:27→14:05)
--- NOTE | 2017-08-05 09:40 | PDOC TRANSFER SUMMARY ---
General - Admit/Disc Date/PCP Admission Date/Primary Care Provider: 08/01/17 16:42 Discharge Date: 08/05/17 - Discharge Diagnosis (1) UTI (urinary tract infection) Is this a current diagnosis for this admission?: Yes Summary: polymicrobial with Proteus and Enterococcus both of which susceptible to PCN so will continue another 7d of Amoxil for complicated UTI. (2) Acute renal failure Is this a current diagnosis for this admission?: Yes Summary: possible prerenal, resolved with IVFs complicated by ACEi and diuretic use. His BPs and volume status remain stable here so I don't think he needs either of those meds at this time; defer to his PCP at f/u for reinitiation of these meds. (3) Altered mental status Is this a current diagnosis for this admission?: Yes Summary: pleasantly demented it seems and likely back to his baseline. (4) Bacteremia Is this a current diagnosis for this admission?: Yes Summary: 1 of 2 initial btls show MSSA and repeat cultures negative so just as likely contaminant; either way should be covered by the additional week of amoxil prescribed above (5) Dementia Is this a current diagnosis for this admission?: Yes (6) Hypotension Is this a current diagnosis for this admission?: Yes Summary: appears to be at his baseline, see above discussion. (7) Decubitus ulcer of buttock, stage 2 Is this a current diagnosis for this admission?: Yes Summary: POA; continue frequent turning and topical care per facility protocol - Additional Information Resuscitation Status: Full Code - Patient cannot speak for himself. There is no DNR on file and I note during his last visit here he was full code Discharge Diet: Cardiac, Other (Comments) - mechanical soft, thin liquids Discharge Activity: Supervised Activity - resume previous Prescriptions: Amoxicillin [Amoxil 250 MG/5ML] 10 ml PO TID #360 ml Potassium Chloride [Klor-Con Sprinkle] 8 meq PO TID #90 capsule.er Risperidone [Risperdal 1 mg Tablet] 1 mg PO Q12 #7 tablet Home Medications: Acetaminophen [Tylenol 325 mg Tablet] 650 mg PO Q4HP PRN 08/01/17 Aspirin [Aspirin 81 mg Chewable Tablet] 81 mg PO DAILY 08/01/17 Atorvastatin Calcium [Lipitor 20 mg Tablet] 20 mg PO DAILY 08/01/17 Docusate Sodium [Colace 100 mg Capsule] 100 mg PO BID 08/01/17 Escitalopram Oxalate [Lexapro] 20 mg PO QHS 08/01/17 Lorazepam [Ativan 0.5 mg Tablet] 0.5 mg PO Q12HP PRN 08/01/17 [place]-3/Dha/Epa/Fish Oil [Fish Oil 1,000 mg Softgel] 1,000 mg PO Q8 08/01/17 Polyvinyl Alcohol [Artificial Tears] 1 drop OP Q4HP PRN 08/01/17 Amoxicillin [Amoxil 250 MG/5ML] 10 ml PO TID #360 ml 08/05/17 Potassium Chloride [Klor-Con Sprinkle] 8 meq PO TID #90 capsule.er 08/05/17 Risperidone [Risperdal 1 mg Tablet] 1 mg PO Q12 #7 tablet 08/05/17 History of Present Illness Admission Date/PCP: 08/01/17 16:42 Patient complains of: AMS History of Present Illness: Summary per Dr. Arriaza H&P: "BENNETT PATTON is a 72 year old white male with a past medical history significant for congestive heart failure, dyslipidemia and hypertension who presents to the service with acute mental status changes. The patient resides in a halfway facility and was sent over from there. As per my conversation with the emergency department, the patient was recently here and discharged in June for sepsis with urinary tract infection. He was treated for Proteus mirabilis urinary tract infection. He was treated with Rocephin and then transitioned to Ceftin up until the day of discharge. He was sent over here because of mental status changes. Blood pressure when he arrived was in the 80s. He received a liter bolus and that brought his pressure up to 92/54. Repeat blood pressure now shows that he is at 106/52. His pulse is in the 50s. Patient is satting on room air. Urinalysis was done and does show leukocyte esterase. It is noted that his creatinine is also elevated from baseline and is now at 1.4. The patient has no history of a chronic indwelling Hernandez. Unfortunately at the bedside the patient does not communicate. History cannot be obtained from him." Hospital Course Hospital Course: I inherited his care Tuesday and found him alert and interactive though largely nonverbal answering questions only with simple head shakes yes or no and not always consistently. He will occasionally smile and he will follow simple one-step commands. No change in his condition , I suspect this is his baseline. However this renders a review of systems and medical history unreliable. Hernandez catheter remained in place but removed yesterday and spontaneously micturating since. He was treated with IVFs and IV abx with resolution of his renal failure; cultures show MSSA bacteremia, possible contaminant as repeat cultures negative and only 1 of 2 initial were positive. his urine growing 2 organisms but both susceptible to his abx and also amoxil so he can continue another 7d of same. He seems to have returned to his baseline based on my review of the old record; there's never been any visitors or family around for me and I have never seen him before but some of the nursing staff seem to know him and report this is his baseline. He is calm and cooperative and will answer yes/no questions appropriately for me; he has contracture of his left arm and left leg weakness with hx noted for prior CVA and dementia. He is hemodynamically stable and met maximum medical benefit for inpt stay and can safely transition back to the [facility] for continued care. Physical Exam Vital Signs: Temp Pulse Resp BP Pulse Ox 97.6 F 70 16 113/64 99 08/05/17 07:08 08/05/17 07:08 08/05/17 07:08 08/05/17 07:08 08/05/17 07:08 Intake & Output 08/04/17 08/05/17 08/06/17 06:59 06:59 06:59 Intake Total 2605 1294 Output Total 2575 1200 Balance 30 94 Weight 61.4 kg 61 kg General: Alert and cooperative, remains nonverbal but more consistent in his responses. verbalizes yes/no answers and will smile at my crummy jokes HEENT: Extraocular muscles are intact, there is no facial asymmetry, oral mucosa is moist, tongue protrusion is midline. Cardio regular rate and rhythm without obvious murmur or gallop. Respiratory: Clear to auscultation bilaterally, no increased work of breathing or accessory muscle use. Abdomen: Soft, nontender, nondistended with good bowel sounds throughout. Extremities: Left upper extremity contracted, apparently this is chronic. He moves his lower extremities spontaneously will follow commands, good strength in his right hand. No edema. Good radial pulses 2+ and symmetric. Skin: Warm and dry. Neuro: will follow simple 1 step commands. Deep tendon reflexes are 1+ and symmetric at the patella. Results Laboratory Results: 08/02/17 03:53 08/04/17 04:10 Impressions: Chest X-Ray 08/01/17 12:59 IMPRESSION: NO ACUTE RADIOGRAPHIC FINDING IN THE CHEST. Transfer Plan - Disposition Transfer Plan: back to the [facility] to continue his care - Time Spent with Patient Time spent with patient: Greater than 30 Minutes Qualifiers PATEINT BEING DISCHARGED WITH ANY OF THE FOLLOWING DIAGNOSIS?: No VTE patient discharged on overlapping Therapy?: No Reason(s) for not prescribing Overlap Therapy:: Not indicated
[2017-08-05] MEDS: ASPIRIN 81 MG TABLET, CHEWABLE PO SCH (10:17)
[2017-08-05] MEDS: DOCUSATE SODIUM 100 MG CAPSULE PO SCH (10:17)
[2017-08-05] MEDS: RISPERIDONE 1 MG TABLET PO SCH (10:17)
[2017-08-05] MEDS: POTASSIUM CHLORIDE 20 MEQ/15 ML UDCUP PO SCH (10:17)
[2017-08-05] MEDS ORDERED: NORMAL SALINE 1000 ML 1,000 ML IV ONE (12:45)
[2017-08-05] MEDS: CEFTRIAXONE 1 GM/D5W RTU 1 GM/50 ML RTUPB IV SCH (15:02)
[2017-08-05 15:46] VITALS: BP 120/62
== END 2017-08-05 15:45 | DRG 689 ==
LOC: ER 12:30 → EH 16:42 → 3N 17:16 → EH 18:02 → 3N 18:59
PROVIDERS: ADMIT Hospitalist; ATTEND Hospitalist
PROC: 3E0F73Z Introduction of Anti-inflammatory into Respiratory Tract, Via Natural or Artificial Opening (ICD-10-PCS; principal; 2017-08-01)
PROC: 3E0234Z Introduction of Serum, Toxoid and Vaccine into Muscle, Percutaneous Approach (ICD-10-PCS; 2017-08-05)
DX: N30.00 Acute cystitis without hematuria (principal); L89.153 Pressure ulcer of sacral region, stage 3; R78.81 Bacteremia; B96.4 Proteus (mirabilis) (morganii) as the cause of diseases classified elsewhere; B95.61 Methicillin susceptible Staphylococcus aureus infection as the cause of diseases classified elsewhere; B95.2 Enterococcus as the cause of diseases classified elsewhere; I50.9 Heart failure, unspecified; F03.90 Unspecified dementia, unspecified severity, without behavioral disturbance, psychotic disturbance, mood disturbance, and anxiety; I95.9 Hypotension, unspecified; L89.302 Pressure ulcer of unspecified buttock, stage 2; I11.0 Hypertensive heart disease with heart failure; D64.9 Anemia, unspecified; I10 Essential (primary) hypertension; E78.00 Pure hypercholesterolemia, unspecified; E86.0 Dehydration; Z23 Encounter for immunization; Z79.82 Long term (current) use of aspirin; Z79.899 Other long term (current) drug therapy; Z86.73 Personal history of transient ischemic attack (TIA), and cerebral infarction without residual deficits; Z82.49 Family history of ischemic heart disease and other diseases of the circulatory system
CPT/HCPCS: 36415; 71010; 80048; 80053; 81001; 82803; 82962; 83605; 83735; 85025; 85610; 87040; 87077; 87086; 87088; 87186; 93005; 93010; 96360; 99285; J0696; J1644; J2543; J3475; J3480; J3490; J7030

== ENCOUNTER 2020-06-16 20:59 | Inpatient (IN) | payer MEDICARE, MEDICAID ==
[2020-06-16] MEDS ORDERED: NITROGLYCERIN/D5W 50 MG/250 ML RTUINJ IV PRN (21:03)
[2020-06-16] MEDS ORDERED: FUROSEMIDE INJ/PF 100 MG/10 ML SDV IV ONE (21:13)
[2020-06-16 21:23] LABS: VENOUS BLOOD BASE EXCESS -7.7 mmol/L; VENOUS BLOOD HCO3 24.2 mmol/L (20-32)
[2020-06-16 21:25] LABS: ABSOLUTE BASOPHILS # (AUTO) 0.1 10^3/uL (0.0-0.2); ABSOLUTE EOSINOPHILS # (AUTO) 0.2 10^3/uL (0.0-0.6); ABSOLUTE MONOCYTES (AUTO) 0.6 10^3/uL (0.1-1.4); ABSOLUTE NEUT (AUTO) 7.1 10^3/uL (1.7-8.2); BASOPHILS % (AUTO) 0.5 % (0-2); EOSINOPHILS % (AUTO) 1.3 % (0-6); HEMATOCRIT 42.9 % (37.9-51.0); HEMOGLOBIN 14.2 g/dL (13.5-17.0); LYMPHOCYTES % (AUTO) 46.9 % (13-45); MEAN CORPUSCULAR HEMOGLOBIN 31.2 pg (27.0-33.4); MEAN CORPUSCULAR HGB CONC 33.1 g/dL (32.0-36.0); MEAN CORPUSCULAR VOLUME 94 fl (80-97); PLATELET COUNT 354 10^3/uL (150-450); RED BLOOD COUNT 4.56 10^6/uL (4.35-5.55); RED CELL DISTRIBUTION WIDTH 12.8 % (11.5-14.0); SEGMENTED NEUTROPHILS % (AUTO) 47.3 % (42-78); TOTAL CELLS COUNTED % (AUTO) 100 %
[2020-06-16 21:27] LABS: VENOUS BLOOD PCO2 82.9 mmHg (35-63); VENOUS BLOOD PH 7.08 (7.30-7.42)
[2020-06-16] MEDS ORDERED: METHYLPREDNISOLONE INJ 40 MG/1 ML SDV IV ONE (21:30)
[2020-06-16] MEDS ORDERED: IPRATROPIUM/ALBUTEROL 0.5-2.5 MG/3 ML AMPUL NEB ONE ×2 (21:30→22:12)
[2020-06-16 21:42] LABS: ALBUMIN 4.5 g/dL (3.5-5.0); ALKALINE PHOSPHATASE 105 U/L (38-126); ANION GAP 16 (5-19); ASPARTATE AMINO TRANSFERASE 21 U/L (17-59); BILIRUBIN,DIRECT 0.1 mg/dL (0.0-0.4); BILIRUBIN,TOTAL 0.3 mg/dL (0.2-1.3); BLOOD UREA NITROGEN 15 mg/dL (7-20); CALCIUM 9.4 mg/dL (8.4-10.2); CARBON DIOXIDE 23 mmol/L (22-30); CHLORIDE 102 mmol/L (98-107); GLUCOSE 271 mg/dL (75-110); PHOSPHORUS 5.1 mg/dL (2.5-4.5); POTASSIUM 3.9 mmol/L (3.6-5.0)
[2020-06-16 21:50] LABS: NT PRO BNP 187 pg/mL (<450)
--- NOTE | 2020-06-16 21:55 | RADIOLOGY REPORT (SQ) ---
CLINICAL INDICATION: sob chf. TECHNIQUE: A single portable AP view was obtained of the chest at 2110 hours. COMPARISON: August 01, 2017. FINDINGS: The cardiomediastinal silhouette is normal. The lungs are grossly clear. No evidence of effusion or pneumothorax. Chronic parenchymal lung change.. IMPRESSION: No evidence of active intrathoracic disease.
[2020-06-16 22:06] LABS: TROPONIN I < 0.012 ng/mL
--- NOTE | 2020-06-16 22:11 | ER Document Report ---
ED General - General Stated Complaint: RESPIRATORY DISTRESS Notes: 75-year-old male history of hypertension hyperlipidemia dementia stroke with residual left-sided weakness long term resident presents with shortness of breath. EMS unable to get a history from long term, say they were called for " interfacility transfer". On scene patient was extremely dyspneic and satting 88% on room air so they placed patient on CPAP which improved work of breathing. Patient was tachycardic and hypertensive to 200s systolic in the field. History limited by acuity, dementia. TRAVEL OUTSIDE OF THE [place] IN LAST 30 DAYS: No - Related Data Allergies/Adverse Reactions: No Known Allergies Allergy (Unverified 04/21/12 04:40) Past Medical History - General Information source: Transfer Record, Emergency Med Personnel, [facility] Records - Social History Smoking Status: Unknown if Ever Smoked Family History: CAD - Past Medical History Cardiac Medical History: Reports: Hx Congestive Heart Failure, Hx Hypercholesterolemia, Hx Hypertension Pulmonary Medical History: Denies: Hx Tuberculosis Neurological Medical History: Reports: Hx Cerebrovascular Accident Renal/ Medical History: Denies: Hx Peritoneal Dialysis GI Medical History: Reports: Hx Ulcer Psychiatric Medical History: Reports: Hx Dementia Past Surgical History: Denies: Hx Pacemaker - Immunizations Hx Diphtheria, Pertussis, Tetanus Vaccination: Yes Review of Systems - Review of Systems -: Yes ROS unobtainable due to patient's medical condition - acuity, dementia Physical Exam - Vital signs Vitals: Resp Pulse Ox 28 H 98 06/16/20 21:10 06/16/20 21:10 - Notes Notes: PHYSICAL EXAMINATION: GENERAL: Chronically ill-appearing elderly man on CPAP with tachypnea HEAD: Atraumatic, normocephalic. EYES: Pupils equal round and appropriate constriction, sclera anicteric, conjunctiva are normal. ENT: nares patent, moist mucous membranes. Frothy secretions in mouth. NECK: Normal range of motion, supple without lymphadenopathy LUNGS: Tachypneic, accessory muscle use, gurgling wet upper airway sounds, coarse rhonchi bilaterally, decreased air movement, no wheezing HEART: Tachycardic, regular rhythm, no murmurs ABDOMEN: Soft, nontender, no guarding, no masses, no CVAT EXTREMITIES: Normal range of motion, no pitting or edema. No cyanosis. NEUROLOGICAL: Awake, alert, left upper extremity contracture, bilateral lower extremity atrophy SKIN: Warm, Dry Course - Re-evaluation Re-evalutation: 06/16/20 22:09 Patient with DNR presents with respiratory distress. Equivocal exam, breath sounds with decreased air movement, history of CHF, rule out ACS, a PE, COPD exacerbation, pneumonia, aspiration pneumonitis, COVID-19, renal failure with acute volume overload. Patient improved his work of breathing on BiPAP and nitroglycerin drip which was started by EMS and increased in the ED with good effect however patient's blood pressure became hypotensive so drip was put on hold and will cycle blood pressure and restart if patient's blood pressure improves to tolerable level. No infiltrates on chest x-ray. No STEMI on EKG. attempted to obtain information from next of kin regarding patient's symptoms prior to arrival and whether or not patient is DNI, but phone number rang without any answering machine and no one picked up. 06/16/20 22:57 Received additional information from Adan Flanagan at patient's long term who says that patient was in usual state of health earlier had dinner around 630 and then at around 730 patient seemed to be biting his tongue and having wet gurgling breath sounds so they called EMS. Given that patient has been tolerating being off of nitroglycerin drip in the ED, no signs of volume overlo ad on exam, and no pulmonary edema on chest x-ray it seems more likely that symptoms were secondary to possibly obstruction from tongue biting versus aspiration versus anaphylaxis versus reactive airway disease. Patient's work of breathing has continued to be greatly improved on BiPAP which she is tolerating well and will continue to observe him and try to wean off BiPAP before being moved to the floor. Discussed case with Dr. Krishna who has accepted patient to medicine floor, says BiPAP can be weaned there if unable to be weaned in ED. Adan Flanagan was not able to provide any confirmation of DNI status so we will treat patient as DNR not DNI unless other information is obtained. - Vital Signs Vital signs: Temp Pulse Resp BP Pulse Ox 15 165/87 H 100 06/17/20 02:31 06/17/20 02:31 06/16/20 21:56 - Laboratory Result Diagrams: 06/17/20 03:32 06/16/20 21:00 Laboratory results interpreted by me: 06/16/20 06/16/20 06/16/20 21:00 21:00 21:00 WBC 15.0 H Lymph % (Auto) 46.9 H Absolute Lymphs (auto) 7.0 H VBG pH 7.08 L* VBG pCO2 82.9 H* Glucose 271 H Phosphorus 5.1 H 06/16/20 22:45 WBC Lymph % (Auto) Absolute Lymphs (auto) VBG pH 7.24 L VBG pCO2 Glucose Phosphorus - EKG Interpretation by Me Additional EKG results interpreted by me: 06/17/20 04:06 Poor baseline, junctional tachycardia, no significant ST elevations or depressi ons, no significant T wave abnormalities Critical Care Note - Critical Care Note Total time excluding time spent on procedures (mins): 35 - Spent time stabilizing the patient with hypercapnic respiratory failure requiring BiPAP Discharge - Discharge Clinical Impression: Respiratory distress Hypercapnic respiratory failure Qualifiers: Chronicity: acute Qualified Code(s): J96.02 - Acute respiratory failure with hypercapnia Disposition: ADMITTED INPATIENT Admitting Provider: Erendira (Hospitalist) Unit Admitted: Medical Floor
[2020-06-16 23:07] LABS: VENOUS BLOOD BASE EXCESS -4.4 mmol/L; VENOUS BLOOD HCO3 23.8 mmol/L (20-32); VENOUS BLOOD PCO2 56.9 mmHg (35-63); VENOUS BLOOD PH 7.24 (7.30-7.42)
[2020-06-17] MEDS ORDERED: HYDRALAZINE HCL INJ/PF 20 MG/1 ML SDV IV PRN
[2020-06-17] MEDS ORDERED: METOPROLOL TARTRATE PF/INJ 5 MG/5 ML SDV IV PRN
[2020-06-17] MEDS ORDERED: MORPHINE SULFATE 10 MG/ML INJ IV PRN
[2020-06-17] MEDS ORDERED: LORAZEPAM INJ 2 MG/1 ML VIAL IV PRN
[2020-06-17] MEDS ORDERED: ONDANSETRON HCL INJ/PF 4 MG/2 ML SDV IV PRN (00:29)
[2020-06-17] MEDS ORDERED: MAGNESIUM HYDROXIDE SUSP 30 ML UDCUP PO PRN (00:29)
[2020-06-17] MEDS ORDERED: MAG HYDROX/AL HYDROX/SIMETH SUSP 30 ML UDCUP PO PRN (00:29)
[2020-06-17 03:42] LABS: HEMOGLOBIN 13.1 g/dL (13.5-17.0); MEAN CORPUSCULAR HEMOGLOBIN 31.5 pg (27.0-33.4); MEAN CORPUSCULAR HGB CONC 34.5 g/dL (32.0-36.0); MEAN CORPUSCULAR VOLUME 91 fl (80-97); PLATELET COUNT 202 10^3/uL (150-450); RED BLOOD COUNT 4.17 10^6/uL (4.35-5.55); RED CELL DISTRIBUTION WIDTH 12.8 % (11.5-14.0)
[2020-06-17 03:58] LABS: ALBUMIN 4.1 g/dL (3.5-5.0); ALKALINE PHOSPHATASE 86 U/L (38-126); ANION GAP 13 (5-19); ASPARTATE AMINO TRANSFERASE 21 U/L (17-59); BILIRUBIN,DIRECT 0.1 mg/dL (0.0-0.4); BILIRUBIN,TOTAL 0.4 mg/dL (0.2-1.3); BLOOD UREA NITROGEN 17 mg/dL (7-20); CALCIUM 9.5 mg/dL (8.4-10.2); CARBON DIOXIDE 24 mmol/L (22-30); CHLORIDE 104 mmol/L (98-107); CREATINE KINASE 106 U/L (55-170); GLUCOSE 149 mg/dL (75-110); TOTAL PROTEIN 7.1 g/dL (6.3-8.2)
[2020-06-17 04:09] LABS: CREATINE KINASE MB 3.62 ng/mL (<4.55)
[2020-06-17 04:12] LABS: POTASSIUM 4.7 mmol/L (3.6-5.0)
[2020-06-17 04:13] LABS: TROPONIN I 0.271 ng/mL
--- NOTE | 2020-06-17 04:15 | PDOC H&P ---
History of Present Illness Admission Date/PCP: 06/16/20 23:24 PATSY ESPINOZA MD Patient complains of: Respiratory distress History of Present Illness: BENNETT PATTON is a 75 year old male who presented emergency room via EMS with acute respiratory distress. Patient was noted by staff at the custodial where he resides to have suddenly developed respiratory distress and his O2 sat had dropped to 88%. Patient has dementia and is unable to provide any information to his medical record. The custodial staff notes that the patient has experienced numerous similar episodes related to tongue biting. Upon arrival by EMS they placed the patient on CPAP due to his O2 sat of 88% and started a nitroglycerin infusion due to the patient's history of congestive heart failure and "wet sounds" in his lungs tachycardia and severe hypertension with systolic blood pressures greater than 200. Patient responded well to the interventions with marked improvement in symptoms prior to arriving at the emergency room. In the emergency room he was eventually weaned off his intravenous nitroglycerin infusion but was continued on BiPAP. In the ER he received empiric intravenous Lasix and Solu-Medrol then was noted to have no acute pulmonary changes on chest x-ray, an unremarkable laboratory evaluation (with the exception of a moderate leukocytosis after receiving IV steroids) and an unremarkable EKG. He is being admitted to observation status for further evaluation. Past Medical History Past Medical History: Due to the patient's dementia information presented here is obtained from the best available reliable source. Cardiac Medical History: Reports: Congestive Heart Failure, Hyperlipidema, Hypertension Pulmonary Medical History: Denies: Asthma, Chronic Obstructive Pulmonary Disease (COPD), Tuberculosis EENT Medical History: Denies: Cataracts, Ears - Hearing aids Neurological Medical History: Denies: Multiple Sclerosis, Seizures Endocrine Medical History: Denies: Diabetes Mellitus Type 1, Diabetes Mellitus Type 2 Renal/ Medical History: Denies: Chronic Kidney Disease, Nephrolithiasis Malignancy Medical History: Reports: None GI Medical History: Denies: Cirrhosis, Hepatitis Musculoskeltal Medical History: Denies: Fibromyalgia, Gout Skin Medical History: Denies: Eczema, Psoriasis Psychiatric Medical History: Reports: Dementia Denies: Alcohol Dependency, Substance Abuse, Tobacco Dependency Hematology: Reports: Anemia Denies: Bleeding Tendencies Infectious Medical History: Reports: None Past Surgical History Past Surgical History: Due to the patient's dementia information presented here is obtained from the best available reliable source. Past Surgical History: Reports: Other - No past surgical history is available Social History Information Source: [facility] Records Lives with: Longterm Smoking Status: Unknown if Ever Smoked Electronic Cigarette use?: No Frequency of Alcohol Use: None Hx Recreational Drug Use: No Drugs: None Hx Prescription Drug Abuse: No - Advance Directive Resuscitation Status: Full Code Surrogate healthcare decision maker:: Alice Dowd Family History Family History: CAD Family History: Due to the patient's dementia information presented here is obtained from the best available reliable source. Parental Family History Reviewed: Yes Children Family History Reviewed: No Sibling(s) Family History Reviewed.: No Medication/Allergy Home Medications: Acetaminophen [Tylenol 325 mg Tablet] 650 mg PO Q4HP PRN 08/01/17 Aspirin [Aspirin 81 mg Chewable Tablet] 81 mg PO DAILY 08/01/17 Atorvastatin Calcium [Lipitor 20 mg Tablet] 20 mg PO DAILY 08/01/17 Docusate Sodium [Colace 100 mg Capsule] 100 mg PO BID 08/01/17 Escitalopram Oxalate [Lexapro] 20 mg PO QHS 08/01/17 Lorazepam [Ativan 0.5 mg Tablet] 0.5 mg PO Q12HP PRN 08/01/17 Hamilton-3/Dha/Epa/Fish Oil [Fish Oil 1,000 mg Softgel] 1,000 mg PO Q8 08/01/17 Polyvinyl Alcohol [Artificial Tears] 1 drop OP Q4HP PRN 08/01/17 Amoxicillin [Amoxil 250 MG/5ML] 10 ml PO TID #360 ml 08/05/17 Potassium Chloride [Klor-Con Sprinkle] 8 meq PO TID #90 capsule.er 08/05/17 Risperidone [Risperdal 1 mg Tablet] 1 mg PO Q12 #7 tablet 08/05/17 Allergies/Adverse Reactions: No Known Allergies Allergy (Unverified 04/21/12 04:40) Review of Systems ROS unobtainable: Due to mental status Physical Exam Vital Signs: Temp Pulse Resp BP Pulse Ox 28 H 98 06/16/20 21:10 06/16/20 21:10 General appearance: PRESENT: no acute distress, cooperative Head exam: PRESENT: atraumatic, normocephalic Eye exam: PRESENT: conjunctiva pink. ABSENT: conjunctival injection, scleral icterus Mouth exam: PRESENT: dry mucosa, neck supple Neck exam: ABSENT: thyromegaly, tracheal deviation Respiratory exam: PRESENT: clear to auscultation maile, symmetrical, unlabored Cardiovascular exam: PRESENT: RRR. ABSENT: clicks, gallop, rubs Pulses: PRESENT: normal radial pulses, normal dorsalis pedis pul Vascular exam: PRESENT: normal capillary refill. ABSENT: pallor GI/Abdominal exam: PRESENT: normal bowel sounds, soft Rectal exam: PRESENT: deferred Extremities exam: ABSENT: joint swelling, pedal edema Musculoskeletal exam: ABSENT: deformity, dislocation Neurological exam: PRESENT: alert. ABSENT: oriented to person, oriented to place, oriented to time Psychiatric exam: PRESENT: flat affect, normal mood Skin exam: PRESENT: dry, intact, warm. ABSENT: jaundice, rash, urticaria Results Laboratory Results: 06/16/20 21:00 06/16/20 21:00 06/16/20 06/16/20 06/16/20 21:00 21:00 21:00 WBC 15.0 H RBC 4.56 Hgb 14.2 Hct 42.9 MCV 94 MCH 31.2 MCHC 33.1 RDW 12.8 Plt Count 354 Seg Neutrophils % 47.3 VBG pH 7.08 L* VBG pCO2 82.9 H* VBG HCO3 24.2 VBG Base Excess -7.7 Sodium 140.6 Potassium 3.9 Chloride 102 Carbon Dioxide 23 Anion Gap 16 BUN 15 Creatinine 0.83 Est GFR ( Amer) > 60 Glucose 271 H Calcium 9.4 Phosphorus 5.1 H Magnesium 2.2 Total Bilirubin 0.3 AST 21 Alkaline Phosphatase 105 Total Protein 8.0 Albumin 4.5 06/16/20 22:45 WBC RBC Hgb Hct MCV MCH MCHC RDW Plt Count Seg Neutrophils % VBG pH 7.24 L VBG pCO2 56.9 VBG HCO3 23.8 VBG Base Excess -4.4 Sodium Potassium Chloride Carbon Dioxide Anion Gap BUN Creatinine Est GFR ( Amer) Glucose Calcium Phosphorus Magnesium Total Bilirubin AST Alkaline Phosphatase Total Protein Albumin 06/16/20 21:00 Troponin I < 0.012 NT-Pro-B Natriuret Pep 187 Impressions: Chest X-Ray 06/16/20 21:02 IMPRESSION: No evidence of active intrathoracic disease. Assessment and Plan - Diagnosis (1) Acute respiratory failure with hypoxia Is this a current diagnosis for this admission?: Yes (2) Acute pulmonary edema with congestive heart failure Is this a current diagnosis for this admission?: Yes (3) Hyperglycemia Is this a current diagnosis for this admission?: Yes (4) Dementia Qualifiers: Dementia type: unspecified type Is this a current diagnosis for this admission?: Yes - Plan Summary Summary: Patient will be admitted to observation status on the medical floor where he received routine supportive and symptomatic cares. He will be weaned from BiPAP and use of supplemental oxygen utilizing the oxygen protocol. He will receive Ativan 1 mg IV every 4 hours as needed for anxiety or restlessness. He will receive morphine 2 mg IV every 1 hours as needed for respiratory distress. Serial cardiac enzymes will be obtained. Hemoglobin A1c will be obtained in the morning. Additional laboratory and/or radiographic evaluations will be obtained as needed. - Time Time Spent with patient: Less than 15 minutes Anticipated Discharge Disposition: Assisted Living with Home Health Services Anticipated Discharge Timeframe: within 24 hours - Inpatient Certification Based on my medical assessment, after consideration of the patient's comorbidities, presenting symptoms, or acuity I expect that the services needed warrant INPATIENT care.: No I certify that my determination is in accordance with my understanding of Medicare's requirements for reasonable and necessary INPATIENT services [42 CFR 412.3e].: No
[2020-06-17] MEDS: ENOXAPARIN SODIUM INJ 80 MG/0.8 ML DISP.SYRIN SUBCUT SCH ×2 (05:57→17:56)
[2020-06-17] MEDS ORDERED: HEPARIN SOD (PORCINE) 5,000 UNIT/ML 1 ML VIAL SUBCUT SCH (06:00)
[2020-06-17 06:26] LABS: CHOLESTEROL 160.34 mg/dL (0-200); TRIGLYCERIDES 129 mg/dL (<150)
[2020-06-17 06:37] LABS: DIRECT LDL 110 mg/dL (<100)
--- NOTE | 2020-06-17 10:33 | PDOC CONSULTATION ---
Consultation Consult Date: 06/17/20 Attending physician:: KIM SANCHEZ Provider Consulted: RHIANNA HURLEY Consult reason:: Hypertension History of Present Illness Admission Date/PCP: 06/16/20 23:24 PATSY ESPINOZA MD History of Present Illness: BENNETT PATTON is a 75 year old male with history of dementia, HTn, HLD and stroke with residual left sided weakness who presented to our emergency room via EMS with acute respiratory distress and who is consulted to assist with hypertension control. The patient lives at a shelter and the staff noted that he developed respiratory distress suddenly associated with a decrease in his pulse ox to 88%. Upon the arrival of EMS personnel, he was placed t on CPAP due to his O2 sat of 88% and started a nitroglycerin infusion due to the patient's history of congestive heart failure and "wet sounds" in his lungs tachycardia and severe hypertension with systolic blood pressures greater than 200. Patient responded well to the interventions with marked improvement in symptoms prior to arriving at the emergency room. He was eventually weaned off his intravenous nitroglycerin infusion but was continued on BiPAP. The patient had an uneventful night but unfortunately, cannot answer any questions due to his dementia. His BP is essentially at goal now although his troponin is slightly elevated. Physical Exam on 06/17/2020: GENERAL: laying in bed in no acute distress. Demented and unable to answer questions. HEENT: Normocephalic, atraumatic. Pupils equal. Sclerae anicteric. Oropharynx moist. NECK: No JVD. No carotid bruits. LUNGS: Clear to auscultation bilaterally. Normal respiratory effort without the use of accessory muscles or intercostal retractions. CARDIOVASCULAR: Regular rate and rhythm, normal S1 and S2 without murmurs, rubs, or gallops. PMI not displaced. EXTREMITIES: No pitting edema bilaterally, no cyanosis, no clubbing. +2 pulses femoral and pedal pulses bilaterally. Left arm and left hand noted to have contracture. SKIN: No lesions or rashes. MUSCULOSKELETAL: No chest tenderness to palpation. Past Medical History Cardiac Medical History: Reports: Congestive Heart Failure, Hyperlipidema, Hypertension Pulmonary Medical History: Denies: Asthma, Chronic Obstructive Pulmonary Disease (COPD), Tuberculosis EENT Medical History: Denies: Cataracts, Ears - Hearing aids Neurological Medical History: Denies: Multiple Sclerosis, Seizures Endocrine Medical History: Denies: Diabetes Mellitus Type 1, Diabetes Mellitus Type 2 Renal/ Medical History: Denies: Chronic Kidney Disease, Nephrolithiasis Malignancy Medical History: Reports: None GI Medical History: Denies: Cirrhosis, Hepatitis Musculoskeltal Medical History: Denies: Fibromyalgia, Gout Skin Medical History: Denies: Eczema, Psoriasis Psychiatric Medical History: Reports: Dementia Denies: Alcohol Dependency, Depression, Substance Abuse, Tobacco Dependency Hematology: Reports: Anemia Denies: Bleeding Tendencies Infectious Medical History: Reports: None Past Surgical History Past Surgical History: Reports: Other - No past surgical history is available Denies: Pacemaker Social History Lives with: Longterm Smoking Status: Unknown if Ever Smoked Electronic Cigarette use?: No Frequency of Alcohol Use: None Hx Recreational Drug Use: No Drugs: None Hx Prescription Drug Abuse: No - Advance Directive Resuscitation Status: Full Code Family History Family History: CAD Parental Family History Reviewed: Yes Children Family History Reviewed: Yes Sibling(s) Family History Reviewed.: Yes Medication/Allergy Home Medications: Acetaminophen [Tylenol 325 mg Tablet] 650 mg PO Q12HP PRN 08/01/17 Polyvinyl Alcohol [Artificial Tears] 1 drop OU Q4HP PRN 08/01/17 Citalopram Hydrobromide [Celexa 20 mg Tablet] 20 mg PO DAILY 06/17/20 Docusate Sodium [Colace Udc 100 mg/10 ml Oral Soln] 10 ml PO BID 06/17/20 Loperamide HCl [Imodium A-D] 4 mg PO .AFTERLOOSESTOOL PRN 06/17/20 Potassium Chloride [K-Tab ER] 8 meq PO TID 06/17/20 Risperidone [Risperdal 1 mg Tablet] 0.5 mg PO BID 06/17/20 Allergies/Adverse Reactions: No Known Allergies Allergy (Unverified 04/21/12 04:40) Physical Exam Vital Signs: Temp Pulse Resp BP Pulse Ox 97.3 F 76 16 134/71 H 99 06/17/20 04:20 06/17/20 04:20 06/17/20 04:20 06/17/20 04:20 06/17/20 04:20 Intake & Output 06/16/20 06/17/20 06/18/20 06:59 06:59 06:59 Weight 64.2 kg Results Laboratory Results: 06/17/20 03:32 06/17/20 03:32 06/16/20 06/16/20 06/16/20 21:00 21:00 21:00 WBC 15.0 H RBC 4.56 Hgb 14.2 Hct 42.9 MCV 94 MCH 31.2 MCHC 33.1 RDW 12.8 Plt Count 354 Seg Neutrophils % 47.3 VBG pH 7.08 L* VBG pCO2 82.9 H* VBG HCO3 24.2 VBG Base Excess -7.7 Sodium 140.6 Potassium 3.9 Chloride 102 Carbon Dioxide 23 Anion Gap 16 BUN 15 Creatinine 0.83 Est GFR ( Amer) > 60 Glucose 271 H Calcium 9.4 Phosphorus 5.1 H Magnesium 2.2 Total Bilirubin 0.3 AST 21 Alkaline Phosphatase 105 Total Protein 8.0 Albumin 4.5 Triglycerides Cholesterol LDL Cholesterol Direct VLDL Cholesterol HDL Cholesterol TSH 06/16/20 06/17/20 06/17/20 22:45 03:32 03:32 WBC 13.0 H RBC 4.17 L Hgb 13.1 L Hct 38.0 MCV 91 MCH 31.5 MCHC 34.5 RDW 12.8 Plt Count 202 Seg Neutrophils % VBG pH 7.24 L VBG pCO2 56.9 VBG HCO3 23.8 VBG Base Excess -4.4 Sodium 140.8 Potassium 4.7 Chloride 104 Carbon Dioxide 24 Anion Gap 13 BUN 17 Creatinine 0.68 Est GFR ( Amer) > 60 Glucose 149 H Calcium 9.5 Phosphorus Magnesium 2.1 Total Bilirubin 0.4 AST 21 Alkaline Phosphatase 86 Total Protein 7.1 Albumin 4.1 Triglycerides Cholesterol LDL Cholesterol Direct VLDL Cholesterol HDL Cholesterol TSH 06/17/20 06/17/20 03:32 03:32 WBC RBC Hgb Hct MCV MCH MCHC RDW Plt Count Seg Neutrophils % VBG pH VBG pCO2 VBG HCO3 VBG Base Excess Sodium Potassium Chloride Carbon Dioxide Anion Gap BUN Creatinine Est GFR ( Amer) Glucose Calcium Phosphorus Magnesium Total Bilirubin AST Alkaline Phosphatase Total Protein Albumin Triglycerides 129 Cholesterol 160.34 LDL Cholesterol Direct 110 H VLDL Cholesterol 26.0 HDL Cholesterol 27 L TSH 1.29 06/16/20 06/17/20 06/17/20 21:00 03:32 03:32 Creatine Kinase 106 CK-MB (CK-2) 3.62 Troponin I < 0.012 0.271 NT-Pro-B Natriuret Pep 187 Impressions: Chest X-Ray 06/16/20 21:02 IMPRESSION: No evidence of active intrathoracic disease. 06/17/20 03:32 06/17/20 03:32 MCV 91 fl (80-97) 06/17/20 03:32 MCH 31.5 pg (27.0-33.4) 06/17/20 03:32 MCHC 34.5 g/dL (32.0-36.0) 06/17/20 03:32 RDW 12.8 % (11.5-14.0) 06/17/20 03:32 Seg Neutrophils % 47.3 % (42-78) 06/16/20 21:00 VBG pH 7.24 (7.30-7.42) L 06/16/20 22:45 VBG pCO2 56.9 mmHg (35-63) 06/16/20 22:45 VBG HCO3 23.8 mmol/L (20-32) 06/16/20 22:45 VBG Base Excess -4.4 mmol/L 06/16/20 22:45 Chloride 104 mmol/L (98-107) 06/17/20 03:32 Carbon Dioxide 24 mmol/L (22-30) 06/17/20 03:32 Anion Gap 13 (5-19) 06/17/20 03:32 Est GFR ( Amer) > 60 (>60) 06/17/20 03:32 Glucose 149 mg/dL (75-110) H 06/17/20 03:32 Calcium 9.5 mg/dL (8.4-10.2) 06/17/20 03:32 Phosphorus 5.1 mg/dL (2.5-4.5) H 06/16/20 21:00 Magnesium 2.1 mg/dL (1.6-2.3) 06/17/20 03:32 Total Bilirubin 0.4 mg/dL (0.2-1.3) 06/17/20 03:32 AST 21 U/L (17-59) 06/17/20 03:32 Alkaline Phosphatase 86 U/L (38-126) 06/17/20 03:32 Total Protein 7.1 g/dL (6.3-8.2) 06/17/20 03:32 Albumin 4.1 g/dL (3.5-5.0) 06/17/20 03:32 Triglycerides 129 mg/dL (<150) 06/17/20 03:32 Cholesterol 160.34 mg/dL (0-200) 06/17/20 03:32 LDL Cholesterol Direct 110 mg/dL (<100) H 06/17/20 03:32 VLDL Cholesterol 26.0 mg/dL (10-31) 06/17/20 03:32 HDL Cholesterol 27 mg/dL (>40) L 06/17/20 03:32 TSH 1.29 uIU/mL (0.47-4.68) 06/17/20 03:32 06/16/20 06/17/20 06/17/20 21:00 03:32 03:32 Creatine Kinase 106 CK-MB (CK-2) 3.62 Troponin I < 0.012 0.271 NT-Pro-B Natriuret Pep 187 Current Medication List Generic Name Dose Route Start Last Admin Trade Name Freq PRN Reason Stop Dose Admin Acetaminophen 650 mg 06/17/20 00:00 Tylenol 325 Mg Tablet PO 07/17/20 00:00 Q4HP PRN For headache, pain or fever Al Hydrox/Mg Hydrox/Simethicone 30 ml 06/17/20 00:29 Maalox Plus Susp 30 Udcup PO 07/17/20 00:28 Q6HP PRN HEARTBURN Aspirin 81 mg 06/17/20 10:00 Ecotrin 81 Mg Ec Tablet PO 07/17/20 09:59 DAILY TJ Docusate Sodium 100 mg 06/17/20 10:00 Colace 100 Mg Capsule PO 07/17/20 09:59 BID TJ Enoxaparin Sodium 65 mg 06/17/20 06:00 06/17/20 05:57 Lovenox Inj 80 Mg/0.8 Ml Disp.Syrin SUBCUT 07/17/20 05:59 65 mg Q12H TJ Administration Famotidine 20 mg 06/17/20 10:00 Pepcid 20 Mg Tablet PO 07/17/20 09:59 Q12 TJ Hydralazine HCl 20 mg 06/17/20 00:00 Apresoline Inj/Pf 20 Mg/1 Ml Sdv IV 07/17/20 00:00 Q4HP PRN Give For Sbp > 160 / Dbp > 100 Lorazepam 1 mg 06/17/20 00:00 Ativan Inj 2 Mg/1 Ml Vial IV 06/24/20 00:00 Q4HP PRN ANXIETY/AGITATION Magnesium Hydroxide 30 ml 06/17/20 00:29 Milk Of Magnesia 30 Ml Udcup PO 07/17/20 00:28 HSP PRN FOR CONSTIPATION Metoprolol Tartrate 5 mg 06/17/20 00:00 Lopressor Inj/Pf 5 Mg/5 Ml Sdv IV 07/17/20 00:00 Q4HP PRN Give For Sbp > 160 / Dbp > 100 Morphine Sulfate 2 mg 06/17/20 00:00 Morphine 10 Mg/Ml Inj IV 06/24/20 00:00 Q1HP PRN Acute Severe Dyspnea Ondansetron HCl 4 mg 06/17/20 00:29 Zofran Inj/Pf 4 Mg/2 Ml Sdv IV 07/17/20 00:28 Q4HP PRN FOR NAUSEA/VOMITING Sodium Chloride 2.5 ml 06/17/20 06:00 06/17/20 05:57 Saline Flush 2.5 Ml Monoject Prefil Syrin IV 07/17/20 05:59 2.5 ml Q8 TJ Administration Discontinued Medications Generic Name Dose Route Start Last Admin Trade Name Freq PRN Reason Stop Dose Admin Albuterol/Ipratropium 9 ml 06/16/20 21:30 06/16/20 22:10 Duoneb 3 Ml Ampul NEB 06/16/20 21:31 9 ml NOW ONE Administration Albuterol/Ipratropium Confirm 06/16/20 22:12 06/17/20 01:37 Duoneb 3 Ml Ampul Administered 06/16/20 22:13 3 ml Dose Administration 3 ml NEB .STK-MED ONE Furosemide 100 mg 06/16/20 21:13 06/16/20 22:30 Lasix Inj/Pf 100 Mg/10 Ml Sdv IV 06/16/20 21:14 Not Given NOW ONE Heparin Sodium (Porcine) 5,000 unit 06/17/20 06:00 Heparin Inj 5,000 Units/Ml 1 Ml Vial SUBCUT 07/17/20 05:59 Q8 TJ Nitroglycerin/Dextrose 50 mg in 250 mls @ 0 mls/hr 06/16/20 21:03 Ntg Rtu 50 Mg/D5w 250 Ml Iv Premix Bottle IV 07/16/20 21:02 CONTINUOUS PRN THIS MED IS NOT "PRN" Protocol Titrate Methylprednisolone Sodium Succinate 80 mg 06/16/20 21:30 06/16/20 22:10 Solu-Medrol Inj/Pf 40 Mg/1 Ml Sdv IV 06/16/20 21:31 80 mg NOW ONE Administration Assessment & Plan - Diagnosis (1) Hypertensive urgency Is this a current diagnosis for this admission?: Yes Plan: Likely secondary to his respiratory distress. BP is now essentially at goal. Recommendations: -Continue with current management. -I will defer further interventions to his primary team. (2) Troponin level elevated Is this a current diagnosis for this admission?: Yes Plan: The patient's troponin is uptrending with the most recent one above the reference range for myocardial injury, the third troponin is still pending. Whether this is secondary to a Type II CO from his hypertensive urgency along with respiratory distress or a primary ACS, is unknown at this time. Unfortunately the patient is not a candidate for invasive cardiac work up or interventions therefore we will continue to treat medically and, given his coronary risk factors for CAD we will give him the benefit of the doubt and treat him medically for ACS for now. Recommendations: -Continue with current management. -Start low dose beta [place]. -Start high intensity statin. -Echocardiogram today.
[2020-06-17 10:41] LABS: CREATINE KINASE MB 4.81 ng/mL (<4.55); TROPONIN I 0.235 ng/mL
[2020-06-17] MEDS: DOCUSATE SODIUM 100 MG CAPSULE PO SCH ×2 (12:12→19:02)
[2020-06-17] MEDS: FAMOTIDINE 20 MG TABLET PO SCH ×2 (12:12→23:22)
[2020-06-17] MEDS: ASPIRIN 81 MG TABLET, ENT COATED PO SCH (12:12)
--- NOTE | 2020-06-17 16:34 | EKG REPORT ---
SEVERITY:- ABNORMAL ECG - PROBABLE SINUS TACHYCARDIA EXCESS BASELINE ARTEFACT : Confirmed by: Gene Almeida MD 17-Jun-2020 16:33:48
--- NOTE | 2020-06-17 16:35 | EKG REPORT ---
SEVERITY:- ABNORMAL ECG - EXTREMELY POOR QUALITY TRACING SINUS TACHYCARDIA : Confirmed by: Gene Almeida MD 17-Jun-2020 16:34:50
[2020-06-17] MEDS ORDERED: ACETAMINOPHEN 325 MG TABLET PO PRN ×2 (18:28)
--- NOTE | 2020-06-17 18:43 | PDOC PROGRESS REPORT ---
Subjective Progress Note for:: 06/17/20 Subjective:: Subjective not obtainable due to advanced dementia Reason For Visit: ACUTE RESPIRATORY FAILURE Physical Exam Vital Signs: Temp Pulse Resp BP Pulse Ox 99.3 F 74 19 105/84 99 06/17/20 15:35 06/17/20 15:35 06/17/20 15:35 06/17/20 15:35 06/17/20 15:35 Intake & Output 06/16/20 06/17/20 06/18/20 06:59 06:59 06:59 Weight 64.2 kg General appearance: PRESENT: no acute distress, cooperative Neck exam: ABSENT: JVD Respiratory exam: PRESENT: symmetrical, unlabored. ABSENT: accessory muscle use, rales, tachypnea, wheezes Cardiovascular exam: PRESENT: RRR, +S1, +S2. ABSENT: tachycardia GI/Abdominal exam: PRESENT: soft. ABSENT: rebound, rigid, tenderness Neurological exam: PRESENT: alert, awake, aphasic. ABSENT: oriented to person, oriented to place, oriented to time, oriented to situation Results Laboratory Results: 06/17/20 03:32 06/17/20 03:32 06/16/20 06/16/20 06/16/20 21:00 21:00 21:00 WBC 15.0 H RBC 4.56 Hgb 14.2 Hct 42.9 MCV 94 MCH 31.2 MCHC 33.1 RDW 12.8 Plt Count 354 Seg Neutrophils % 47.3 VBG pH 7.08 L* VBG pCO2 82.9 H* VBG HCO3 24.2 VBG Base Excess -7.7 Sodium 140.6 Potassium 3.9 Chloride 102 Carbon Dioxide 23 Anion Gap 16 BUN 15 Creatinine 0.83 Est GFR ( Amer) > 60 Glucose 271 H Calcium 9.4 Phosphorus 5.1 H Magnesium 2.2 Total Bilirubin 0.3 AST 21 Alkaline Phosphatase 105 Total Protein 8.0 Albumin 4.5 Triglycerides Cholesterol LDL Cholesterol Direct VLDL Cholesterol HDL Cholesterol TSH 06/16/20 06/17/20 06/17/20 22:45 03:32 03:32 WBC 13.0 H RBC 4.17 L Hgb 13.1 L Hct 38.0 MCV 91 MCH 31.5 MCHC 34.5 RDW 12.8 Plt Count 202 Seg Neutrophils % VBG pH 7.24 L VBG pCO2 56.9 VBG HCO3 23.8 VBG Base Excess -4.4 Sodium 140.8 Potassium 4.7 Chloride 104 Carbon Dioxide 24 Anion Gap 13 BUN 17 Creatinine 0.68 Est GFR ( Amer) > 60 Glucose 149 H Calcium 9.5 Phosphorus Magnesium 2.1 Total Bilirubin 0.4 AST 21 Alkaline Phosphatase 86 Total Protein 7.1 Albumin 4.1 Triglycerides Cholesterol LDL Cholesterol Direct VLDL Cholesterol HDL Cholesterol TSH 06/17/20 06/17/20 03:32 03:32 WBC RBC Hgb Hct MCV MCH MCHC RDW Plt Count Seg Neutrophils % VBG pH VBG pCO2 VBG HCO3 VBG Base Excess Sodium Potassium Chloride Carbon Dioxide Anion Gap BUN Creatinine Est GFR ( Amer) Glucose Calcium Phosphorus Magnesium Total Bilirubin AST Alkaline Phosphatase Total Protein Albumin Triglycerides 129 Cholesterol 160.34 LDL Cholesterol Direct 110 H VLDL Cholesterol 26.0 HDL Cholesterol 27 L TSH 1.29 06/16/20 06/17/20 06/17/20 21:00 03:32 03:32 Creatine Kinase 106 CK-MB (CK-2) 3.62 Troponin I < 0.012 0.271 NT-Pro-B Natriuret Pep 187 06/17/20 06/17/20 06/17/20 09:10 09:10 15:00 Creatine Kinase 137 181 H CK-MB (CK-2) 4.81 H Troponin I 0.235 NT-Pro-B Natriuret Pep 06/17/20 15:00 Creatine Kinase CK-MB (CK-2) 4.76 H Troponin I NT-Pro-B Natriuret Pep Impressions: Chest X-Ray 06/16/20 21:02 IMPRESSION: No evidence of active intrathoracic disease. Assessment and Plan - Diagnosis (1) Acute respiratory failure with hypoxia and hypercapnia Is this a current diagnosis for this admission?: Yes Plan: Seems to have improved significantly. We will get a repeat venous blood gas in the morning. Now Down to 1 L in terms of oxygen. Luna montes. (2) Acute pulmonary edema with congestive heart failure Is this a current diagnosis for this admission?: Yes Plan: Notably there was concern for possible acute diastolic heart failure secondary to ?hypertensive emergency. Seems patient is more adequate now on blood pressures better controlled. Did receive Lasix in the ER as well as nitro drip which have been discontinued. (3) Hypertension Qualifiers: Hypertension type: essential hypertension Qualified Code(s): I10 - Essential (primary) hypertension Is this a current diagnosis for this admission?: Yes Plan: We will start patient on chlorthalidone. Blood pressure is adequate now. (4) Hyperglycemia Is this a current diagnosis for this admission?: Yes Plan: Hemoglobin A1c is normal. (5) Troponin level elevated Is this a current diagnosis for this admission?: Yes Plan: Likely type II AK secondary to demand perfusion mismatch from respiratory failure. Evaluated by career counselor is recommending echocardiogram. I will leave patient on therapeutic Lovenox for now and plan to discontinue the morning now that the troponin has peaked. (6) Dementia Qualifiers: Dementia type: unspecified type Dementia behavioral disturbance: with behavioral disturbance Qualified Code(s): F03.91 - Unspecified dementia with behavioral disturbance Is this a current diagnosis for this admission?: Yes - Time Time Spent with patient: 15-24 minutes Anticipated Discharge Disposition: Residential Facility Anticipated Discharge Timeframe: within 24 hours
[2020-06-17] MEDS: IPRATROPIUM/ALBUTEROL 0.5-2.5 MG/3 ML AMPUL NEB SCH (20:48)
[2020-06-17] MEDS ORDERED: CHLORTHALIDONE 25 MG TABLET PO SCH (21:00)
[2020-06-17] MEDS ORDERED: POLYVINYL ALCOHOL 1.4% OPH SOLN 15 ML OU PRN (21:00)
[2020-06-17] MEDS ORDERED: RISPERIDONE 1 MG TABLET PO SCH (22:00)
[2020-06-18] MEDS: IPRATROPIUM/ALBUTEROL 0.5-2.5 MG/3 ML AMPUL NEB SCH ×3 (02:02→14:01)
[2020-06-18] MEDS: ENOXAPARIN SODIUM INJ 80 MG/0.8 ML DISP.SYRIN SUBCUT SCH (05:42)
--- NOTE | 2020-06-18 06:35 | XCELERA REPORT ---
[address] [address] Transthoracic Echocardiogram Report Name: BENNETT PATTON Age: 75 yrs Gender: Male : 1945 Patient Status: Inpatient Patient Location: [address] [place] [address] Study Date: 06/17/2020 07:21 PM Height: 68 in Weight: 141 lb BSA: 1.8 m2 Procedure: A complete two-dimensional transthoracic echocardiogram was performed (2D, M-mode, spectral and color flow Doppler). Images were not obtained from all of the standard acoustic windows due to the limited scope of the study. Most of the acoustic windows were suboptimal, but the best imaging was obtained from the apical window. No Subcostal. Images from the parasternal window were difficult to obtain and are suboptimal in quality. Reason For Study: elevated troponin Ordering Physician: JESSICA ERNST Performed By: Lara Ferreira Interpretation Summary Very technically limited study with essentially no useful parasternal long axis views, no subcostal views and very limited apical views. The left ventricle is grossly normal size. Left ventricular systolic function is normal. The Ejection Fraction estimate is 60-65%. Doppler measurements suggest impaired left ventricular relaxation, which is associated with grade I/IV or mild diastolic dysfunction. Regional wall motion abnormalities cannot be excluded due to limited visualization. Valvular structures were not visualized. MMode/2D Measurements & Calculations LVLd ap4: 7.2 cm SV(MOD-sp4): 40.0 ml EDV(MOD-sp4): 52.0 ml LVLs ap4: 4.2 cm ESV(MOD-sp4): 12.0 ml EF(MOD-sp4): 76.9 % Doppler Measurements & Calculations MV E max florencia: MV P1/2t max florencia: Ao V2 max: LV V1 max P.5 cm/sec 84.8 cm/sec 145.2 cm/sec 6.3 mmHg MV A max florencia: MV P1/2t: 90.0 msec Ao max PG: LV V1 max: 93.3 cm/sec MVA(P1/2t): 2.4 cm2 8.4 mmHg 125.9 cm/sec MV E/A: 0.79 MV dec slope: 276.0 cm/sec2 MV dec time: 0.24 sec MV P1/2t-pr_phl: 90.0 msec Left Ventricle The left ventricle is grossly normal size. Left ventricular systolic function is normal. The Ejection Fraction estimate is 60-65%. Doppler measurements suggest impaired left ventricular relaxation, which is associated with grade I/IV or mild diastolic dysfunction. Regional wall motion abnormalities cannot be excluded due to limited visualization. Right Ventricle The right ventricle is grossly normal size. The right ventricular systolic function is normal. Atria Right atrium not well visualized secondary to technical limitations. The left atrium is not well visualized secondary to technical limitations. Interarterial septum not well visualized and not well dopplered. Cannot comment on ASD/PFO presence. Mitral Valve The mitral valve is not well visualized. There is no mitral valve stenosis. Aortic Valve The aortic valve is not well visualized secondary to technical limitations. There is no aortic valve stenosis. No aortic regurgitation is present. Tricuspid Valve The tricuspid valve is not well visualized secondary to technical limitations. There is no tricuspid stenosis. Pulmonic Valve The pulmonic valve is not well visualized. Great Vessels Not well visualized. Not visualized. : JESSICA ERNST Antonio
--- NOTE | 2020-06-18 08:09 | PDOC PROGRESS REPORT ---
Subjective Progress Note for:: 06/18/20 Subjective:: BENNETT PATTON is a 75 year old male with history of dementia, HTn, HLD and stroke with residual left sided weakness who presented to our emergency room via EMS with acute respiratory distress and who is consulted to assist with hypertension control. The [facility] and the staff noted that he developed respiratory distress suddenly associated with a decrease in his pulse ox to 88%. Upon the arrival of EMS personnel, he was placed t on CPAP due to his O2 sat of 88% and started a nitroglycerin infusion due to the patient's history of congestive heart failure and "wet sounds" in his lungs tachycardia and severe hypertension with systolic blood pressures greater than 200. Patient responded well to the interventions with marked improvement in symptoms prior to arriving at the emergency room. He was eventually weaned off his intravenous nitroglycerin infusion but was continued on BiPAP. The patient had an uneventful night but unfortunately, cannot answer any questions due to his dementia. His BP is essentially at goal now although his troponin is slightly elevated. 06/18/2020: The patient had an uneventful night. He is more awake this morning than yesterday and answers yes or no to my questions. When specifically asked, he said no to having chest pain, shortness of breath, SAUCEDO, PND or palpitations. His telemetry continues to show normal sinus rhythm. Physical Exam on 06/18/2020: GENERAL: laying in bed in no acute distress. He is more awake this morning. HEENT: Normocephalic, atraumatic. Pupils equal. Sclerae anicteric. Oropharynx moist. NECK: No JVD. No carotid bruits. LUNGS: Clear to auscultation bilaterally. Normal respiratory effort without the use of accessory muscles or intercostal retractions. CARDIOVASCULAR: Regular rate and rhythm, normal S1 and S2 without murmurs, rubs, or gallops. PMI not displaced. EXTREMITIES: No pitting edema bilaterally, no cyanosis, no clubbing. +2 pulses femoral and pedal pulses bilaterally. Left arm and left hand noted to have contracture. SKIN: No lesions or rashes. MUSCULOSKELETAL: No chest tenderness to palpation. Cardiac studies: Echocardiogram on 06/17/2020: -Very technically limited study with essentially no useful parasternal long axis views, no subcostal views and very limited apical views. -The left ventricle is grossly normal size. -Left ventricular systolic function is normal. -The Ejection Fraction estimate is 60-65%. -Doppler measurements suggest impaired left ventricular relaxation, which is associated with grade I/IV or mild diastolic dysfunction. -Regional wall motion abnormalities cannot be excluded due to limited visualization. -Valvular structures were not visualized. Reason For Visit: ACUTE RESPIRATORY FAILURE Physical Exam Vital Signs: Temp Pulse Resp BP Pulse Ox 98.1 F 59 L 15 123/64 98 06/18/20 03:54 06/18/20 03:54 06/18/20 03:54 06/18/20 03:54 06/18/20 03:54 Intake & Output 06/16/20 06/17/20 06/18/20 06:59 06:59 06:59 Intake Total 200 Balance 200 Weight 64.2 kg 64.1 kg Results Laboratory Results: 06/17/20 03:32 06/17/20 03:32 06/17/20 03:32 Triglycerides 129 Cholesterol 160.34 LDL Cholesterol Direct 110 H VLDL Cholesterol 26.0 HDL Cholesterol 27 L 06/16/20 06/17/20 06/17/20 21:00 03:32 03:32 Creatine Kinase 106 CK-MB (CK-2) 3.62 Troponin I < 0.012 0.271 NT-Pro-B Natriuret Pep 187 06/17/20 06/17/20 06/17/20 09:10 09:10 15:00 Creatine Kinase 137 181 H CK-MB (CK-2) 4.81 H Troponin I 0.235 NT-Pro-B Natriuret Pep 06/17/20 15:00 Creatine Kinase CK-MB (CK-2) 4.76 H Troponin I NT-Pro-B Natriuret Pep Impressions: Chest X-Ray 06/16/20 21:02 IMPRESSION: No evidence of active intrathoracic disease. 06/17/20 03:32 06/17/20 03:32 MCV 91 fl (80-97) 06/17/20 03:32 MCH 31.5 pg (27.0-33.4) 06/17/20 03:32 MCHC 34.5 g/dL (32.0-36.0) 06/17/20 03:32 RDW 12.8 % (11.5-14.0) 06/17/20 03:32 Seg Neutrophils % 47.3 % (42-78) 06/16/20 21:00 VBG pH 7.24 (7.30-7.42) L 06/16/20 22:45 VBG pCO2 56.9 mmHg (35-63) 06/16/20 22:45 VBG HCO3 23.8 mmol/L (20-32) 06/16/20 22:45 VBG Base Excess -4.4 mmol/L 06/16/20 22:45 Chloride 104 mmol/L (98-107) 06/17/20 03:32 Carbon Dioxide 24 mmol/L (22-30) 06/17/20 03:32 Anion Gap 13 (5-19) 06/17/20 03:32 Est GFR ( Amer) > 60 (>60) 06/17/20 03:32 Glucose 149 mg/dL (75-110) H 06/17/20 03:32 Calcium 9.5 mg/dL (8.4-10.2) 06/17/20 03:32 Phosphorus 5.1 mg/dL (2.5-4.5) H 06/16/20 21:00 Magnesium 2.1 mg/dL (1.6-2.3) 06/17/20 03:32 Total Bilirubin 0.4 mg/dL (0.2-1.3) 06/17/20 03:32 AST 21 U/L (17-59) 06/17/20 03:32 Alkaline Phosphatase 86 U/L (38-126) 06/17/20 03:32 Total Protein 7.1 g/dL (6.3-8.2) 06/17/20 03:32 Albumin 4.1 g/dL (3.5-5.0) 06/17/20 03:32 Triglycerides 129 mg/dL (<150) 06/17/20 03:32 Cholesterol 160.34 mg/dL (0-200) 06/17/20 03:32 LDL Cholesterol Direct 110 mg/dL (<100) H 06/17/20 03:32 VLDL Cholesterol 26.0 mg/dL (10-31) 06/17/20 03:32 HDL Cholesterol 27 mg/dL (>40) L 06/17/20 03:32 TSH 1.29 uIU/mL (0.47-4.68) 06/17/20 03:32 11/10/0406/17/20 06/17/20 21:00 03:32 03:32 Creatine Kinase 106 CK-MB (CK-2) 3.62 Troponin I < 0.012 0.271 NT-Pro-B Natriuret Pep 187 06/17/20 06/17/20 06/17/20 09:10 09:10 15:00 Creatine Kinase 137 181 H CK-MB (CK-2) 4.81 H Troponin I 0.235 NT-Pro-B Natriuret Pep 06/17/20 15:00 Creatine Kinase CK-MB (CK-2) 4.76 H Troponin I NT-Pro-B Natriuret Pep Current Medication List Generic Name Dose Route Start Last Admin Trade Name Freq PRN Reason Stop Dose Admin Acetaminophen 650 mg 06/17/20 00:00 Tylenol 325 Mg Tablet PO 07/17/20 00:00 Q4HP PRN For headache, pain or fever Acetaminophen 650 mg 06/17/20 18:28 Tylenol 325 Mg Tablet PO 07/17/20 18:27 Q12HP PRN For Pain or Fever Al Hydrox/Mg Hydrox/Simethicone 30 ml 06/17/20 00:29 Maalox Plus Susp 30 Udcup PO 07/17/20 00:28 Q6HP PRN HEARTBURN Albuterol/Ipratropium 3 ml 06/17/20 20:00 06/18/20 07:56 Duoneb 3 Ml Ampul NEB 07/17/20 19:59 3 ml RTQ6 TJ Administration Artificial Tears 1 drop 06/17/20 21:00 Liquitears 1.4% Ophth Soln 15 Ml OU 07/17/20 20:59 Q4HP PRN FOR DRY EYES Aspirin 81 mg 06/17/20 10:00 06/17/20 12:12 Ecotrin 81 Mg Ec Tablet PO 07/17/20 09:59 81 mg DAILY TJ Administration Chlorthalidone 25 mg 06/17/20 21:00 06/17/20 23:23 Hygroton 25 Mg Tablet PO 07/17/20 20:59 25 mg QPM TJ Administration Citalopram Hydrobromide 20 mg 06/18/20 10:00 Celexa 20 Mg Tablet PO 07/18/20 09:59 DAILY TJ Docusate Sodium 100 mg 06/17/20 10:00 06/17/20 19:02 Colace 100 Mg Capsule PO 07/17/20 09:59 Not Given BID TJ Enoxaparin Sodium 65 mg 06/17/20 06:00 06/18/20 05:42 Lovenox Inj 80 Mg/0.8 Ml Disp.Syrin SUBCUT 07/17/20 05:59 65 mg Q12H TJ Administration Famotidine 20 mg 06/17/20 10:00 06/17/20 23:22 Pepcid 20 Mg Tablet PO 07/17/20 09:59 20 mg Q12 TJ Administration Hydralazine HCl 20 mg 06/17/20 00:00 Apresoline Inj/Pf 20 Mg/1 Ml Sdv IV 07/17/20 00:00 Q4HP PRN Give For Sbp > 160 / Dbp > 100 Magnesium Hydroxide 30 ml 06/17/20 00:29 Milk Of Magnesia 30 Ml Udcup PO 07/17/20 00:28 HSP PRN FOR CONSTIPATION Ondansetron HCl 4 mg 06/17/20 00:29 Zofran Inj/Pf 4 Mg/2 Ml Sdv IV 07/17/20 00:28 Q4HP PRN FOR NAUSEA/VOMITING Risperidone 0.5 mg 06/17/20 22:00 06/17/20 23:22 Risperdal 1 Mg Tablet PO 07/17/20 21:59 0.5 mg Q12 TJ Administration Sodium Chloride 2.5 ml 06/17/20 06:00 06/18/20 05:42 Saline Flush 2.5 Ml Monoject Prefil Syrin IV 07/17/20 05:59 2.5 ml Q8 TJ Administration Discontinued Medications Generic Name Dose Route Start Last Admin Trade Name Freq PRN Reason Stop Dose Admin Albuterol/Ipratropium 9 ml 06/16/20 21:30 06/16/20 22:10 Duoneb 3 Ml Ampul NEB 06/16/20 21:31 9 ml NOW ONE Administration Albuterol/Ipratropium Confirm 06/16/20 22:12 06/17/20 01:37 Duoneb 3 Ml Ampul Administered 06/16/20 22:13 3 ml Dose Administration 3 ml NEB .STK-MED ONE Furosemide 100 mg 06/16/20 21:13 06/16/20 22:30 Lasix Inj/Pf 100 Mg/10 Ml Sdv IV 06/16/20 21:14 Not Given NOW ONE Heparin Sodium (Porcine) 5,000 unit 06/17/20 06:00 Heparin Inj 5,000 Units/Ml 1 Ml Vial SUBCUT 07/17/20 05:59 Q8 TJ Nitroglycerin/Dextrose 50 mg in 250 mls @ 0 mls/hr 06/16/20 21:03 Ntg Rtu 50 Mg/D5w 250 Ml Iv Premix Bottle IV 07/16/20 21:02 CONTINUOUS PRN THIS MED IS NOT "PRN" Protocol Titrate Lorazepam 1 mg 06/17/20 00:00 Ativan Inj 2 Mg/1 Ml Vial IV 06/24/20 00:00 Q4HP PRN ANXIETY/AGITATION Methylprednisolone Sodium Succinate 80 mg 06/16/20 21:30 06/16/20 22:10 Solu-Medrol Inj/Pf 40 Mg/1 Ml Sdv IV 06/16/20 21:31 80 mg NOW ONE Administration Metoprolol Tartrate 5 mg 06/17/20 00:00 Lopressor Inj/Pf 5 Mg/5 Ml Sdv IV 07/17/20 00:00 Q4HP PRN Give For Sbp > 160 / Dbp > 100 Morphine Sulfate 2 mg 06/17/20 00:00 Morphine 10 Mg/Ml Inj IV 06/24/20 00:00 Q1HP PRN Acute Severe Dyspnea Assessment & Plan - Diagnosis (1) Hypertensive urgency Is this a current diagnosis for this admission?: Yes Plan: Likely secondary to his respiratory distress. BP is now at goal. Recommendations: -Continue with current management. -I will defer further interventions to his primary team. (2) Troponin level elevated Is this a current diagnosis for this admission?: Yes Plan: The patient's troponin peaked at 0.271 and is now downtrending. Whether he had a Type II ID from his hypertensive urgency along with respiratory distress or a primary ACS, is unknown at this time however he has remained hemodynamically and electrically stable and without evidence of active cardiac ischemia or heart failure. Although his echocardiogram was a very poor quality, it demonstrated grossly normal left ventricular systolic function, regional wall motion assessm ent could not be performed. Unfortunately the patient is not a candidate for invasive cardiac work up or interventions therefore we will continue to treat medically. Recommendations: -Continue with current management. -Start low dose beta savannah. -Start high intensity statin. -May start ANTONIO inhibitor as tolerated by his blood pressure. -Cardiology will sign off the case for now, please reconsult if clinically indicated.
[2020-06-18 08:28] LABS: HEMATOCRIT 37.2 % (37.9-51.0); HEMOGLOBIN 12.8 g/dL (13.5-17.0); MEAN CORPUSCULAR HEMOGLOBIN 31.7 pg (27.0-33.4); MEAN CORPUSCULAR HGB CONC 34.4 g/dL (32.0-36.0); MEAN CORPUSCULAR VOLUME 92 fl (80-97); PLATELET COUNT 184 10^3/uL (150-450); RED BLOOD COUNT 4.04 10^6/uL (4.35-5.55); RED CELL DISTRIBUTION WIDTH 12.9 % (11.5-14.0); WHITE BLOOD COUNT 7.9 10^3/uL (4.0-10.5)
[2020-06-18 08:41] LABS: VENOUS BLOOD BASE EXCESS -3.9 mmol/L; VENOUS BLOOD HCO3 21.7 mmol/L (20-32); VENOUS BLOOD PCO2 41.4 mmHg (35-63); VENOUS BLOOD PH 7.34 (7.30-7.42)
[2020-06-18] MEDS: FAMOTIDINE 20 MG TABLET PO SCH (09:17)
[2020-06-18] MEDS: ASPIRIN 81 MG TABLET, ENT COATED PO SCH (09:17)
[2020-06-18] MEDS ORDERED: CITALOPRAM HYDROBROMIDE 20 MG TABLET PO SCH (10:00)
--- NOTE | 2020-06-18 11:36 | PDOC TRANSFER SUMMARY ---
Impression - Admit/DC Date/PCP Admission Date/Primary Care Provider: 06/16/20 23:24 PATSY ESPINOZA MD Discharge Date: 06/18/20 - Discharge Diagnosis (1) Acute respiratory failure with hypoxia and hypercapnia Is this a current diagnosis for this admission?: Yes (2) Acute pulmonary edema with congestive heart failure Is this a current diagnosis for this admission?: Yes (3) Hypertension Is this a current diagnosis for this admission?: Yes (4) Hyperglycemia Is this a current diagnosis for this admission?: Yes (5) Troponin level elevated Is this a current diagnosis for this admission?: Yes (6) Dementia Is this a current diagnosis for this admission?: Yes - Additional Information Resuscitation Status: Full Code Referrals: PATSY ESPINOZA MD [Primary Care Provider] - Follow up as needed Prescriptions: Chlorthalidone [Hygroton 25 mg Tablet] 25 mg PO QPM #30 tablet Atorvastatin Calcium [Lipitor 40 mg Tablet] 40 mg PO QHS #30 tablet Albuterol Sulfate [Ventolin Hfa 8 gm Mdi] 2 puff IH Q4HP PRN #1 inhaler PRN Reason: Home Medications: Acetaminophen [Tylenol 325 mg Tablet] 650 mg PO Q12HP PRN 08/01/17 Polyvinyl Alcohol [Artificial Tears] 1 drop OU Q4HP PRN 08/01/17 Citalopram Hydrobromide [Celexa 20 mg Tablet] 20 mg PO DAILY 06/17/20 Docusate Sodium [Colace Udc 100 mg/10 ml Oral Soln] 10 ml PO BID 06/17/20 Potassium Chloride [K-Tab ER] 8 meq PO TID 06/17/20 Risperidone [Risperdal 1 mg Tablet] 0.5 mg PO BID 06/17/20 Albuterol Sulfate [Ventolin Hfa 8 gm Mdi] 2 puff IH Q4HP PRN #1 inhaler 06/18/20 Atorvastatin Calcium [Lipitor 40 mg Tablet] 40 mg PO QHS #30 tablet 06/18/20 Chlorthalidone [Hygroton 25 mg Tablet] 25 mg PO QPM #30 tablet 06/18/20 History of Present Illiness History of Present Illness: According to admitting provider: BENNETT PATTON is a 75 year old male who presented emergency room via EMS with acute respiratory distress. [facility] was [facility] to have suddenly developed respiratory distress and his O2 sat had dropped to 88%. Patient has dementia and is unable to provide any information to his medical record. The jail staff notes that the patient has experienced numerous similar episodes related to tongue biting. Upon arrival by EMS they placed the patient on CPAP due to his O2 sat of 88% and started a nitroglycerin infusion due to the patient's history of congestive heart failure and "wet sounds" in his lungs tachycardia and severe hypertension with systolic blood pressures greater than 200. Patient responded well to the interventions with marked improvement in symptoms prior to arriving at the emergency room. In the emergency room he was eventually weaned off his intravenous nitroglycerin infusion but was continued on BiPAP. In the ER he received empiric intravenous Lasix and Solu-Medrol then was noted to have no ac curry pulmonary changes on chest x-ray, an unremarkable laboratory evaluation (with the exception of a moderate leukocytosis after receiving IV steroids) and an unremarkable EKG. He is being admitted to observation status for further evaluation. Hospital Course Hospital Course: Patient was admitted to the hospital after experiencing an episode of significan t acute onset dyspnea accompanied with significantly elevated blood pressure reading. Notably, on arrival of EMS to facility he had during patient significantly hypertensive and had put patient on CPAP/BiPAP in route to the hospital and started patient on nitroglycerin drip with concern for acute diastolic heart failure secondary to hypertensive emergency. In the hospital, chest x-ray was not very remarkable but did show some concerns for vascular congestion. Venous blood gas showed respiratory acidosis with pH of 7.08 and PCO2 in the 80s. He was placed on BiPAP for a few hours and this was corrected. His BiPAP was discontinued on admission to the hospital. He has been left on nasal cannula. The nitroglycerin drip was also discontinued on admission and his blood pressure has been adequate. He did receive a one-time heavy dose of IV Lasix. His hypoxia seems to have resolved for the most part wildly significantly improved as he was only on about 1 L nasal cannula today with SPO2 in the high 90s. Venous blood gas this morning also shows normalization of his PCO2 and pH and resolution of his respiratory acidosis. He is back to baseline. He has been started on chlorthalidone for his high blood pressure. It is unclear why patient CO2 retention emanates from but in addition to the blood pressure control, he may also benefit from albuterol inhaler to be used as needed for wheezing or poor air movement in the lungs. He was hyperglycemic so his hemoglobin A1c was measured which was normal. Notably also in the hospital, his troponin had risen from initially normal to about 0.2 which was the peak. He was briefly put on therapeutic dose Lovenox but I do believe patient just experienced type II NE secondary to demand perfusion mismatch from his respiratory distress and not likely to have been a true ACS. He did when he was seen by door maker recommended that patient is not a candidate for any interventional procedures given his advanced dementia. Recommended placing patient on high intensity statin. Can also start patient on baby aspirin 81 mg daily. COVID-19 test was negative. Physical Exam Vital Signs: Temp Pulse Resp BP Pulse Ox 98.1 F 55 L 16 123/64 99 06/18/20 03:54 06/18/20 07:56 06/18/20 07:56 06/18/20 03:54 06/18/20 07:56 Intake & Output 06/17/20 06/18/20 06/19/20 06:59 06:59 06:59 Intake Total 200 Balance 200 Weight 64.2 kg 64.1 kg General appearance: PRESENT: no acute distress, cooperative Neck exam: ABSENT: JVD Respiratory exam: PRESENT: unlabored. ABSENT: accessory muscle use, rales, retraction, tachypnea, wheezes Cardiovascular exam: PRESENT: RRR, +S1, +S2. ABSENT: tachycardia GI/Abdominal exam: PRESENT: soft. ABSENT: rebound, rigid, tenderness Extremities exam: ABSENT: pedal edema Neurological exam: PRESENT: alert, awake, aphasic - Nonverbal Psychiatric exam: ABSENT: agitated, anxious Results Laboratory Results: WBC 7.9 10^3/uL (4.0-10.5) 06/18/20 08:05 RBC 4.04 10^6/uL (4.35-5.55) L 06/18/20 08:05 Hgb 12.8 g/dL (13.5-17.0) L 06/18/20 08:05 Hct 37.2 % (37.9-51.0) L 06/18/20 08:05 MCV 92 fl (80-97) 06/18/20 08:05 MCH 31.7 pg (27.0-33.4) 06/18/20 08:05 MCHC 34.4 g/dL (32.0-36.0) 06/18/20 08:05 RDW 12.9 % (11.5-14.0) 06/18/20 08:05 Plt Count 184 10^3/uL (150-450) 06/18/20 08:05 Lymph % (Auto) 46.9 % (13-45) H 06/16/20 21:00 Harney % (Auto) 4.0 % (3-13) 06/16/20 21:00 Eos % (Auto) 1.3 % (0-6) 06/16/20 21:00 Baso % (Auto) 0.5 % (0-2) 06/16/20 21:00 Absolute Neuts (auto) 7.1 10^3/uL (1.7-8.2) 06/16/20 21:00 Absolute Lymphs (auto) 7.0 10^3/uL (0.5-4.7) H 06/16/20 21:00 Absolute Monos (auto) 0.6 10^3/uL (0.1-1.4) 06/16/20 21:00 Absolute Eos (auto) 0.2 10^3/uL (0.0-0.6) 06/16/20 21:00 Absolute Basos (auto) 0.1 10^3/uL (0.0-0.2) 06/16/20 21:00 Seg Neutrophils % 47.3 % (42-78) 06/16/20 21:00 VBG pH 7.34 (7.30-7.42) 06/18/20 08:05 VBG pCO2 41.4 mmHg (35-63) 06/18/20 08:05 VBG HCO3 21.7 mmol/L (20-32) 06/18/20 08:05 VBG Base Excess -3.9 mmol/L 06/18/20 08:05 Sodium 140.8 mmol/L (137-145) 06/17/20 03:32 Potassium 4.7 mmol/L (3.6-5.0) 06/17/20 03:32 Chloride 104 mmol/L (98-107) 06/17/20 03:32 Carbon Dioxide 24 mmol/L (22-30) 06/17/20 03:32 Anion Gap 13 (5-19) 06/17/20 03:32 BUN 17 mg/dL (7-20) 06/17/20 03:32 Creatinine 0.68 mg/dL (0.52-1.25) 06/17/20 03:32 Est GFR ( Amer) > 60 (>60) 06/17/20 03:32 Est GFR (MDRD) Non-Af > 60 (>60) 06/17/20 03:32 Glucose 149 mg/dL (75-110) H 06/17/20 03:32 Hemoglobin A1c % 4.7 % (4.7-6.0) 06/17/20 03:32 Calcium 9.5 mg/dL (8.4-10.2) 06/17/20 03:32 Phosphorus 5.1 mg/dL (2.5-4.5) H 06/16/20 21:00 Magnesium 2.1 mg/dL (1.6-2.3) 06/17/20 03:32 Total Bilirubin 0.4 mg/dL (0.2-1.3) 06/17/20 03:32 Direct Bilirubin 0.1 mg/dL (0.0-0.4) 06/17/20 03:32 Neonat Total Bilirubin Not Reportable 06/17/20 03:32 Neonat Direct Bilirubin Not Reportable 06/17/20 03:32 Neonat Indirect Bili Not Reportable 06/17/20 03:32 AST 21 U/L (17-59) 06/17/20 03:32 ALT 14 U/L (<50) 06/17/20 03:32 Alkaline Phosphatase 86 U/L (38-126) 06/17/20 03:32 Creatine Kinase 181 U/L (55-170) H 06/17/20 15:00 CK-MB (CK-2) 4.76 ng/mL (<4.55) H 06/17/20 15:00 Troponin I 0.235 ng/mL 06/17/20 09:10 NT-Pro-B Natriuret Pep 187 pg/mL (<450) 06/16/20 21:00 Total Protein 7.1 g/dL (6.3-8.2) 06/17/20 03:32 Albumin 4.1 g/dL (3.5-5.0) 06/17/20 03:32 Triglycerides 129 mg/dL (<150) 06/17/20 03:32 Cholesterol 160.34 mg/dL (0-200) 06/17/20 03:32 LDL Cholesterol Direct 110 mg/dL (<100) H 06/17/20 03:32 VLDL Cholesterol 26.0 mg/dL (10-31) 06/17/20 03:32 HDL Cholesterol 27 mg/dL (>40) L 06/17/20 03:32 TSH 1.29 uIU/mL (0.47-4.68) 06/17/20 03:32 COVID-19 Source Cancelled 06/17/20 01:20 COVID-19 Source See comment 06/17/20 01:20 COVID-19 (JOLYNN) Cancelled 06/17/20 01:20 COVID-19 (JOLYNN) Not Detected (Not Detect) 06/17/20 01:20 06/16/20 06/17/20 06/17/20 21:00 03:32 09:10 CK-MB (CK-2) 3.62 4.81 H Troponin I < 0.012 0.271 0.235 NT-Pro-B Natriuret Pep 187 06/17/20 15:00 CK-MB (CK-2) 4.76 H Troponin I NT-Pro-B Natriuret Pep Impressions: Chest X-Ray 06/16/20 21:02 IMPRESSION: No evidence of active intrathoracic disease. Plan Time Spent: Less than 30 Minutes Stroke Is this a Stroke Patient?: No Acute Heart Failure Is this a Heart Failure Patient?: Yes Documentation of LVEF assessment?: Yes LVEF: LVEF Greater Than 40% Anticoagulant Therapy: N/A
[2020-06-18 13:18] VITALS: BP 145/67
== END 2020-06-18 14:20 | DRG 189 ==
LOC: ER 20:59 → EH 23:24 → 5 06-17 03:48 → OBSVTOIN 06-17 15:22 → INTOOBSV 06-17 15:22
PROVIDERS: ADMIT Emergency Medicine; ATTEND Internal Medicine
PROC: 5A09357 Assistance with Respiratory Ventilation, Less than 24 Consecutive Hours, Continuous Positive Airway Pressure (ICD-10-PCS; principal; 2020-06-17)
DX: J96.02 Acute respiratory failure with hypercapnia (principal); I50.31 Acute diastolic (congestive) heart failure; I21.A1 Myocardial infarction type 2; F03.91 Unspecified dementia, unspecified severity, with behavioral disturbance; I69.354 Hemiplegia and hemiparesis following cerebral infarction affecting left non-dominant side; I11.0 Hypertensive heart disease with heart failure; J96.01 Acute respiratory failure with hypoxia; D72.829 Elevated white blood cell count, unspecified; E78.5 Hyperlipidemia, unspecified; D64.9 Anemia, unspecified; I16.0 Hypertensive urgency; R73.9 Hyperglycemia, unspecified; R77.8 Other specified abnormalities of plasma proteins; Z11.59 Encounter for screening for other viral diseases; Z79.899 Other long term (current) drug therapy; Z82.49 Family history of ischemic heart disease and other diseases of the circulatory system
CPT/HCPCS: 36415; 71045; 80053; 80061; 82550; 82553; 82803; 83036; 83735; 83880; 84100; 84443; 84484; 85025; 85027; 87635; 93005; 93010; 93306; 94640; 94660; 99281; C9803; G0378; J1650; J2920; J3490